=== PATIENT | male | born 1955 | race Caucasian/White ===

== ENCOUNTER 2016-08-08 13:26 | Inpatient (IN) | payer MEDICARE, OTHER ==
[~2016-08-08] VITALS: Ht 160 cm; Wt 57.7 kg
[~2016-08-08 13:26] MED LIST: AMLO10 PO; CLON.5 PO; LAMO100 PO; OMPR20CCR PO; PRIS100T PO; ZYPR20TA PO
[2016-08-08 13:34] VITALS: BP_SYST 101; BP_SYST 98; BP_DIAS 55; BP_DIAS 61; PULSE 66; RESP 20; TEMP 98.3; O2SAT 96
--- NOTE | 2016-08-08 13:37 | PD ---
HPI Chief Complaint: Back Pain Time Seen by Provider: 13:36 Travel History International Travel<30 days: No Contact w/Intl Traveler<30days: No Traveled to known affect area: No PFSH Past Medical History Arthritis: Yes Asthma: No Autoimmune Disease: No Bipolar Disorder: Yes Anxiety: Yes Depression: Yes Heart Rhythm Problems: No Cancer: Yes (PROSTATE) Cardiac Catheterization: Yes Cardiovascular Problems: Yes High Cholesterol: No Chemotherapy: No Chest Pain: No Congestive Heart Failure: No COPD: Yes Cerebrovascular Accident: No Diabetes: No Diminished Hearing: No Diverticulitis: Yes Endocrine: No Gastrointestinal Disorders: Yes GERD: Yes Genitourinary: Yes Hiatal Hernia: No Hypertension: Yes Immune Disorder: No Kidney Stones: No Musculoskeletal: Yes (arthritis) Neurologic: No Psychiatric: Yes Reproductive: No Respiratory: Yes (COPD) Migraines: No Radiation Therapy: No Renal Failure: Yes Seizures: No Sickle Cell Disease: No Sleep Apnea: Yes Thyroid Disease: No Ulcer: Yes Past Surgical History AICD: No Arteriovenous Shunt: No Cardiac Surgery: No Cholecystectomy: Yes Ear Surgery: No Endocrine Surgery: No Eye Surgery: No Genitourinary Surgery: Yes (prostate removal 2009) Gynecologic Surgery: No Insulin Pump: No Joint Replacement: No Oral Surgery: Yes (tooth extractions) Pacemaker: No Prostatectomy: Yes Thoracic Surgery: No Other Surgery: Yes Social History Alcohol Use: Yes Tobacco Use: Yes (/2 PPD) Substance Use: Yes (cocaine-last week) Allergies-Medications (Allergen,Severity, Reaction): Coded Allergies: No Known Allergies (Verified , 08/08/16) Reported Meds & Prescriptions Reported Meds & Active Scripts Active Reported Lexapro (Escitalopram Oxalate) 5 Mg Tab 5 Mg PO DAILY Klonopin (Clonazepam) 0.5 Mg Tab 0.5 Mg PO HS Lamictal (Lamotrigine) 100 Mg Tab 100 Mg PO DAILY Prilosec (Omeprazole) 20 Mg Cap 20 Mg PO DAILY Norvasc (Amlodipine Besylate) 10 Mg Tab 10 Mg PO DAILY Data Data Last Documented VS Vital Signs Date Time Temp Pulse Resp B/P Pulse Ox O2 Delivery O2 Flow Rate FiO2 08/08/16 13:34 98.3 66 20 101/61 96 98/55 Orders Electrocardiogram (08/08/16 ) Complete Blood Count With Diff (08/08/16 13:47) Comprehensive Metabolic Panel (08/08/16 13:47) Lipase (08/08/16 13:47) Lactic Acid (08/08/16 13:47) Prothrombin Time / Inr (Pt) (08/08/16 13:47) Urinalysis - C+S If Indicated (08/08/16 13:47) Ct Abd/Pel W Iv Contrast(Rout) (08/08/16 13:47) Iv Access Insert/Monitor (08/08/16 13:47) Ecg Monitoring (08/08/16 13:47) Oximetry (08/08/16 13:47) Sodium Chlor 0.9% 1000 Ml Inj (Ns 1000 M (08/08/16 13:47) Sodium Chloride 0.9% Flush (Ns Flush) (08/08/16 14:00) Morphine Inj (Morphine Inj) (08/08/16 15:00) Labs Laboratory Tests Test 08/08/16 13:55 White Blood Count 4.4 TH/MM3 Red Blood Count 4.26 MIL/MM3 Hemoglobin 13.8 GM/DL Hematocrit 41.2 % Mean Corpuscular Volume 96.7 FL Mean Corpuscular Hemoglobin 32.5 PG Mean Corpuscular Hemoglobin 33.6 % Concent Red Cell Distribution Width 16.3 % Platelet Count 234 TH/MM3 Mean Platelet Volume 8.0 FL Neutrophils (%) (Auto) 53.7 % Lymphocytes (%) (Auto) 38.4 % Monocytes (%) (Auto) 5.6 % Eosinophils (%) (Auto) 1.7 % Basophils (%) (Auto) 0.6 % Neutrophils # (Auto) 2.4 TH/MM3 Lymphocytes # (Auto) 1.7 TH/MM3 Monocytes # (Auto) 0.2 TH/MM3 Eosinophils # (Auto) 0.1 TH/MM3 Basophils # (Auto) 0.0 TH/MM3 CBC Comment DIFF FINAL Differential Comment Prothrombin Time 9.9 SEC Prothromb Time International 0.9 RATIO Ratio Sodium Level 138 MEQ/L Potassium Level 4.0 MEQ/L Chloride Level 99 MEQ/L Carbon Dioxide Level 28.7 MEQ/L Anion Gap 10 MEQ/L Blood Urea Nitrogen 7 MG/DL Creatinine 1.10 MG/DL Estimat Glomerular Filtration 68 ML/MIN Rate Random Glucose 102 MG/DL Lactic Acid Level 3.5 mmol/L Calcium Level 8.8 MG/DL Total Bilirubin 0.3 MG/DL Aspartate Amino Transf 72 U/L (AST/SGOT) Alanine Aminotransferase 53 U/L (ALT/SGPT) Alkaline Phosphatase 151 U/L Total Protein 7.2 GM/DL Albumin 3.4 GM/DL Lipase 225 U/L Jose Antonio Greenfield Aug 08, 2016 13:37
[2016-08-08] MEDS ORDERED: SODIUM CHLOR 0.9% 1000 ML INJ 1,000 ML IV SCH (13:47)
[2016-08-08] MEDS ORDERED: SODIUM CHLORIDE 0.9% FLUSH 10 ML FLUSH IV FLUSH PRN ×2 (14:00→16:00)
[2016-08-08] MEDS ORDERED: CLON.5 PO (14:09)
[2016-08-08] MEDS ORDERED: AMLO10 PO (14:09)
[2016-08-08] MEDS ORDERED: LEXA5TAB PO (14:09)
[2016-08-08] MEDS ORDERED: LAMO100 PO (14:09)
[2016-08-08] MEDS ORDERED: PRIL20CA9 PO (14:09)
[2016-08-08 14:12] LABS: AUTOMATED NEUTROPHIL # 2.4 TH/MM3 (1.8-7.7); BASOPHIL % 0.6 % (0.0-2.0); EOSINOPHIL # 0.1 TH/MM3 (0-0.4); EOSINOPHIL % 1.7 % (0.0-4.0); HEMATOCRIT 41.2 % (39.0-51.0); HEMO FLAGS DIFF FINAL; LYMPH % 38.4 % (9.0-44.0); LYMPHOCYTE # 1.7 TH/MM3 (1.0-4.8); MEAN CELL VOLUME 96.7 FL (80.0-100.0); MEAN CORPUSCULAR HEMOGLOBIN 32.5 PG (27.0-34.0); MEAN CORPUSCULAR HGB CONC 33.6 % (32.0-36.0); MONO % 5.6 % (0.0-8.0); NEUT % 53.7 % (16.0-70.0); PLATELET COUNT 234 TH/MM3 (150-450); RED BLOOD COUNT 4.26 MIL/MM3 (4.50-5.90); RED CELL DISTRIBUTION WIDTH 16.3 % (11.6-17.2); WHITE BLOOD COUNT 4.4 TH/MM3 (4.0-11.0)
[2016-08-08 14:18] LABS: INTERNATIONAL NORMALIZED RATIO 0.9 RATIO; PROTHROMBIN TIME - PATIENT 9.9 SEC (9.8-11.6)
[2016-08-08 14:24] LABS: ANION GAP 10 MEQ/L (5-15); AST (GOT) 72 U/L (15-37); BICARBONATE 28.7 MEQ/L (21.0-32.0); BLOOD UREA NITROGEN 7 MG/DL (7-18); CHLORIDE 99 MEQ/L (98-107); GLOMERULAR FILTRATION RATE 68 ML/MIN (>89); SODIUM (NA) 138 MEQ/L (136-145)
[2016-08-08 14:27] LABS: ALKALINE PHOSPHATASE 151 U/L (45-117); ALT (GPT) 53 U/L (12-78); TOTAL BILIRUBIN ADULT 0.3 MG/DL (0.2-1.0)
[2016-08-08 14:50] VITALS: BP 120/65; PULSE 73; RESP 20; O2SAT 100
--- NOTE | 2016-08-08 14:59 | PD ---
HPI Chief Complaint: Back/ Neck Pain or Injury Time Seen by Provider: 13:36 Travel History International Travel<30 days: No Contact w/Intl Traveler<30days: No Traveled to known affect area: No History of Present Illness HPI 60-year-old male came to the emergency room with history of lower back pain that was sudden onset and severe. When EMS arrived his blood pressure was in the 80s systolic. Here his blood pressure has been in the 90s to 100s. Patient is awake and answering questions appropriately. Patient says he has history of low back pain but has never had it this severe in the past. No history of trauma. He says the pain is radiating down his lower legs. No history of fever or chills. Movement makes the pain worse. FOR[facility]LY [facility] Past Medical History Narrative Medical List of his past medical, surgical, social and family history was reviewed from the nursing note Arthritis: Yes Asthma: No Autoimmune Disease: No Bipolar Disorder: Yes Anxiety: Yes Depression: Yes Heart Rhythm Problems: No Cancer: Yes (PROSTATE) Cardiac Catheterization: Yes Cardiovascular Problems: Yes High Cholesterol: No Chemotherapy: No Chest Pain: No Congestive Heart Failure: No COPD: Yes Cerebrovascular Accident: No Diabetes: No Diminished Hearing: No Diverticulitis: Yes Endocrine: No Gastrointestinal Disorders: Yes GERD: Yes Genitourinary: Yes Hiatal Hernia: No Hypertension: Yes Immune Disorder: No Kidney Stones: No Musculoskeletal: Yes (arthritis) Neurologic: No Psychiatric: Yes Reproductive: No Respiratory: Yes (COPD) Migraines: No Radiation Therapy: No Renal Failure: Yes Seizures: No Sickle Cell Disease: No Sleep Apnea: Yes Thyroid Disease: No Ulcer: Yes Tetanus Vaccination: < 5 Years Influenza Vaccination: Yes Past Surgical History AICD: No Arteriovenous Shunt: No Cardiac Surgery: No Cholecystectomy: Yes Ear Surgery: No Endocrine Surgery: No Eye Surgery: No Genitourinary Surgery: Yes (prostate removal 2009) Gynecologic Surgery: No Insulin Pump: No Joint Replacement: No Oral Surgery: Yes (tooth extractions) Pacemaker: No Prostatectomy: Yes Thoracic Surgery: No Other Surgery: Yes Social History Alcohol Use: Yes (FEW TIMES WEEKLY ) Tobacco Use: Yes (1/2 PPD) Substance Use: Yes (cocaine) Allergies-Medications (Allergen,Severity, Reaction): Coded Allergies: No Known Allergies (Verified , 08/08/16) Comments No known drug allergies. Reported Meds & Prescriptions Reported Meds & Active Scripts Active Reported Lexapro (Escitalopram Oxalate) 5 Mg Tab 5 Mg PO DAILY Klonopin (Clonazepam) 0.5 Mg Tab 0.5 Mg PO HS Lamictal (Lamotrigine) 100 Mg Tab 100 Mg PO DAILY Prilosec (Omeprazole) 20 Mg Cap 20 Mg PO DAILY Norvasc (Amlodipine Besylate) 10 Mg Tab 10 Mg PO DAILY Narrative Medication List of his home medications reviewed from the nursing note. Review of Systems Except as stated in HPI: all other systems reviewed are Neg Physical Exam Narrative GENERAL: Awake, alert, anxious, moderate disc SKIN: Focused skin assessment warm/dry. HEAD: Atraumatic. Normocephalic. EYES: Pupils equal and round. No scleral icterus. No injection or drainage. ENT: No nasal bleeding or discharge. Dry mucous membrane. NECK: Trachea midline. No JVD. CARDIOVASCULAR: Regular rate and rhythm. No murmur appreciated. RESPIRATORY: No accessory muscle use. Clear to auscultation. Breath sounds equal bilaterally. GASTROINTESTINAL: Abdomen soft, non-tender, nondistended. Hepatic and splenic margins not palpable. MUSCULOSKELETAL: No obvious deformities. No clubbing. No cyanosis. No edema. NEUROLOGICAL: Awake and alert. No obvious cranial nerve deficits. Motor grossly within normal limits. Normal speech. PSYCHIATRIC: Appropriate mood and affect; insight and judgment normal. Data Data Last Documented VS Vital Signs Date Time Temp Pulse Resp B/P Pulse Ox O2 Delivery O2 Flow Rate FiO2 08/08/16 15:05 20 08/08/16 14:50 73 120/65 100 Room Air 08/08/16 13:34 98.3 Orders Electrocardiogram (08/08/16 ) Complete Blood Count With Diff (08/08/16 13:47) Comprehensive Metabolic Panel (08/08/16 13:47) Lipase (08/08/16 13:47) Lactic Acid (08/08/16 13:47) Prothrombin Time / Inr (Pt) (08/08/16 13:47) Urinalysis - C+S If Indicated (08/08/16 13:47) Ct Abd/Pel W Iv Contrast(Rout) (08/08/16 13:47) Iv Access Insert/Monitor (08/08/16 13:47) Ecg Monitoring (08/08/16 13:47) Oximetry (08/08/16 13:47) Sodium Chlor 0.9% 1000 Ml Inj (Ns 1000 M (08/08/16 13:47) Sodium Chloride 0.9% Flush (Ns Flush) (08/08/16 14:00) Morphine Inj (Morphine Inj) (08/08/16 15:00) Iohexol 350 Inj (Omnipaque 350 Inj) (08/08/16 15:19) Sodium Chlor 0.9% 1000 Ml Inj (Ns 1000 M (08/08/16 15:45) Piperacil-Tazo 4.5 Gm Premix (Zosyn 4.5 (08/08/16 15:45) Morphine Inj (Morphine Inj) (08/08/16 15:45) Lactic Acid (08/08/16 15:45) Admit Order (Ed Use Only) (08/08/16 15:50) ^ Straight Catheter (08/08/16 15:51) Mri L Spine W/O Contrast (08/08/16 ) Mri T Spine W/O Contrast (08/08/16 ) Labs Laboratory Tests Test 08/08/16 13:55 White Blood Count 4.4 TH/MM3 Red Blood Count 4.26 MIL/MM3 Hemoglobin 13.8 GM/DL Hematocrit 41.2 % Mean Corpuscular Volume 96.7 FL Mean Corpuscular Hemoglobin 32.5 PG Mean Corpuscular Hemoglobin 33.6 % Concent Red Cell Distribution Width 16.3 % Platelet Count 234 TH/MM3 Mean Platelet Volume 8.0 FL Neutrophils (%) (Auto) 53.7 % Lymphocytes (%) (Auto) 38.4 % Monocytes (%) (Auto) 5.6 % Eosinophils (%) (Auto) 1.7 % Basophils (%) (Auto) 0.6 % Neutrophils # (Auto) 2.4 TH/MM3 Lymphocytes # (Auto) 1.7 TH/MM3 Monocytes # (Auto) 0.2 TH/MM3 Eosinophils # (Auto) 0.1 TH/MM3 Basophils # (Auto) 0.0 TH/MM3 CBC Comment DIFF FINAL Differential Comment Prothrombin Time 9.9 SEC Prothromb Time International 0.9 RATIO Ratio Sodium Level 138 MEQ/L Potassium Level 4.0 MEQ/L Chloride Level 99 MEQ/L Carbon Dioxide Level 28.7 MEQ/L Anion Gap 10 MEQ/L Blood Urea Nitrogen 7 MG/DL Creatinine 1.10 MG/DL Estimat Glomerular Filtration 68 ML/MIN Rate Random Glucose 102 MG/DL Lactic Acid Level 3.5 mmol/L Calcium Level 8.8 MG/DL Total Bilirubin 0.3 MG/DL Aspartate Amino Transf 72 U/L (AST/SGOT) Alanine Aminotransferase 53 U/L (ALT/SGPT) Alkaline Phosphatase 151 U/L Total Protein 7.2 GM/DL Albumin 3.4 GM/DL Lipase 225 U/L MDM Medical Decision Making Medical Screen Exam Complete: Yes Emergency Medical Condition: Yes Medical Record Reviewed: Yes Differential Diagnosis AAA, lumbar radiculopathy Narrative Course 3:08 PM patient was given IV fluid bolus. Blood pressure currently is 120 systolic. Blood test results of back and within normal limit. I have ordered a CT of his abdomen and pelvis. Based on my bedside ultrasound are pearly was visualized. Patient has been medicated for pain. Awaiting for the CAT scan to be done and resulted. 3:44 PM blood test results of back and CAT scan. Except for lactic acid all other test results are within acceptable limit. Lactic acid is elevated. Based on the hypertension initially I will go ahead and treat him with broad- spectrum antibiotics for sepsis coverage. I have also ordered an MRI of his thoracic and lumbar spine since patient is still complaining of back pain. I have given him a second dose of pain medication. I will admit this patient. I' m waiting for the hospitalist call back. Critical Care Narrative Aggregate critical care time was 45 minutes. Time to perform other separately billable procedures was not included in the critical care time. My time did not include minutes spent treating any other patients simultaneously or on activities that did not directly contribute to the patient's treatment. The services I provided to this patient were to treat and/or prevent clinically significant deterioration that could result in: Hypotension, sepsis protocol I provided critical care services requiring my management, as noted below: Chart data review, documentation time, medication orders and management, vital sign assessments/reviewing monitor data, ordering and reviewing lab tests, ordering and interpreting/reviewing x-rays and diagnostic studies, care of the patient and discussion of the patient with the admitting physicians. Procedures EKG Prior to Arrival: No Diagnosis Primary Impression: Sepsis Qualified Code: A41.9 - Sepsis, due to unspecified organism Additional Impression: Back pain Qualified Code: M54.5 - Acute midline low back pain without sciatica Admitting Information Admitting Physician Requests: Admit Scripts Hydrocodone-Acetaminophen 5-325 mg Tab1 Tab PO Q4H PRN (pain 1-5) #30 TAB Prov:Sam More MD 08/12/16 Maya Dougherty MD Aug 08, 2016 14:59
[2016-08-08] MEDS ORDERED: MORPHINE SULFATE 4 MG/ML INJ IV PUSH ONE ×2 (15:00→15:45)
[2016-08-08] MEDS ORDERED: IOHEXOL 350 MG/ML 10 ML VIAL (for RAD DIAG) IV ONE (15:19)
--- NOTE | 2016-08-08 15:36 | RADRPT ---
EXAM DATE/TIME: 08/08/2016 15:10 [facility] COMPARISON: No previous studies available for comparison. INDICATIONS : Diffuse lower back and abdominal pain for two days. IV CONTRAST: 100 cc Omnipaque 350 (iohexol) IV ORAL CONTRAST: No oral contrast ingested. RADIATION DOSE: 6.06 CTDIvol (mGy) MEDICAL HISTORY : Hypertension. Diverticulitis. Renal failure, chronic.Ulcer, Cardiac. SURGICAL HISTORY : Cholecystectomy. Prostate Cancer Surgery. ENCOUNTER: Initial ACUITY: 2 days PAIN SCALE: 7/10 LOCATION: Bilateral lower quadrant TECHNIQUE: Volumetric scanning of the abdomen and pelvis was performed. Using automated exposure control and ad justment of the mA and/or kV according to patient size, radiation dose was kept as low as reasonably achievable to obtain optimal diagnostic quality images. FINDINGS: CT Abdomen: The liver is fatty without focal lesions or technique. The right kidney measures 10.3 cm the left side measures 6.6 cm in craniocaudal dimension. There are small cysts in both kidneys. The s pleen, pancreas, adrenals are unremarkable. There is no evidence for any appreciable pathological rosie nopathy, free fluid, or bowel obstruction. There is evidence for prior cholecystectomy. Coronary art francisco calcifications are seen typically seen with CAD and need to be evaluated clinically. Chronic vasc ular calcifications are present involving the aorta, iliac arteries without any significant stenosis or aneurysmal dilatations for technique. Common bile duct measures 9 mm from post cholecystectomy res ervoir changes. CT pelvis: There is no evidence for mass, abscess formation, or any significant adenopathy within the pelvis. There are scattered diverticuli mainly in the sigmoid colon without definite signs of divert iculitis. There is moderate amount of stool throughout the colon. CONCLUSION: The left kidney is smaller as compared to the right side and the liver is fatty. Fanny Jang MD on August 08, 2016 at 15:24 Board Certified Radiologist. This report was verified electronically.
[2016-08-08] MEDS ORDERED: VANCOMYCIN INJ 1,000 MG in SODIUM CHLOR 0.9% 250 ML INJ 250 ML IV ONE (15:45)
[2016-08-08] MEDS ORDERED: PIPERACIL-TAZO 4.5 GM PREMIX 100 ML IV ONE (15:45)
[2016-08-08] MEDS ORDERED: SODIUM CHLOR 0.9% 1000 ML INJ 1,000 ML IV ONE (15:45)
[2016-08-08] MEDS: SODIUM CHLOR 0.9% 1000 ML INJ 1,000 ML IV SCH (15:50)
--- NOTE | 2016-08-08 15:54 | HHI.HP ---
HPI [facility] Physician Lei Cochran, Admission Diagnosis sepsis, lower back pain Diagnoses: Travel History International Travel<30 Days: No Contact w/Intl Traveler <30 Da: No Traveled to Known Affected Are: No History of Present Illness This is a 60-year-old male who had a sudden onset of severe low back pain that started a little less than 24 hours prior to his presentation to the emergency department at [facility] today. He came in by ambulance. At the ambulance his systolic was 80. He was given IV fluids and his systolic blood pressure came up to normal range. His lactic acid was 3.5. CT scan of the abdomen was done and was unremarkable. MRI of the thoracic and lumbar spine is pending. He was seen by the undersigned in room E 53. Is alert and oriented. Is complaining that the morphine did not do anything for him. He requested IV Demerol. He mentioned that with his pain he is having weakness in his lower extremities however he is actually able to move his lower extremities above the level of the bed during this interview. No fever chills or diaphoresis. Review of Systems Other Poor appetite, chronic pain for which he uses Lortab. Location of the pain is not clear. Malnourished. 10 systems reviewed and otherwise negative Past Family Social History Past Medical History Hypertension Diverticulitis Bipolar Hepatitis C Hypertension Chronic pain syndrome COPD Obstructive sleep apnea Tobacco abuse Cocaine abuse Chronic kidney disease Hypertension Inflammatory bowel disease Prostate cancer Left patella fracture Past Surgical History Cardiac catheterization Cholecystectomy Left patella open reduction internal fixation Prostate cancer surgery Reported Medications Reported Meds & Active Scripts Active Reported Lexapro (Escitalopram Oxalate) 5 Mg Tab 5 Mg PO DAILY Klonopin (Clonazepam) 0.5 Mg Tab 0.5 Mg PO HS Lamictal (Lamotrigine) 100 Mg Tab 100 Mg PO DAILY Prilosec (Omeprazole) 20 Mg Cap 20 Mg PO DAILY Norvasc (Amlodipine Besylate) 10 Mg Tab 10 Mg PO DAILY Allergies: Coded Allergies: No Known Allergies (Verified , 08/08/16) Family History Reviewed but not contributory Social History Half pack a day smoking, uses cocaine, no illicit drug use per patient Physical Exam Vital Signs Vital Signs Date Time Temp Pulse Resp B/P Pulse Ox O2 Delivery O2 Flow Rate FiO2 08/08/16 14:50 73 20 120/65 100 Room Air 08/08/16 13:34 98.3 66 20 101/61 96 98/55 Physical Exam GENERAL: This is a poorly nourished, well-developed patient, looking anxious but otherwise in no apparent distress. SKIN: No rashes, ecchymoses or lesions. Cool and dry. HEAD: Atraumatic. Normocephalic. No temporal or scalp tenderness. EYES: Pupils equal round and reactive. Extraocular motions intact. No scleral icterus. No injection or drainage. ENT: Nose without bleeding, purulent drainage or septal hematoma. Throat without erythema, tonsillar hypertrophy or exudate. Uvula midline. Airway patent. NECK: Trachea midline. No JVD or lymphadenopathy. Supple, nontender, no meningeal signs. CARDIOVASCULAR: Regular rate and rhythm without murmurs, gallops, or rubs. RESPIRATORY: Clear to auscultation. Breath sounds equal bilaterally. No wheezes , rales, or rhonchi. GASTROINTESTINAL: Abdomen soft, non-tender, nondistended. No hepato-splenomegaly , or palpable masses. No guarding. MUSCULOSKELETAL: Extremities without clubbing, cyanosis, or edema. No joint tenderness, effusion, or edema noted. No calf tenderness. Negative Homans sign bilaterally. NEUROLOGICAL: Awake and alert. Cranial nerves II through XII intact. sensory exam grossly within normal limits. Five out of 4 muscle strength in all muscle groups. Straight leg raising in both lower extremities is limited to 30 bilaterally secondary to pain. Normal speech. Laboratory Laboratory Tests Test 08/08/16 13:55 White Blood Count 4.4 Red Blood Count 4.26 Hemoglobin 13.8 Hematocrit 41.2 Mean Corpuscular Volume 96.7 Mean Corpuscular Hemoglobin 32.5 Mean Corpuscular Hemoglobin 33.6 Concent Red Cell Distribution Width 16.3 Platelet Count 234 Mean Platelet Volume 8.0 Neutrophils (%) (Auto) 53.7 Lymphocytes (%) (Auto) 38.4 Monocytes (%) (Auto) 5.6 Eosinophils (%) (Auto) 1.7 Basophils (%) (Auto) 0.6 Neutrophils # (Auto) 2.4 Lymphocytes # (Auto) 1.7 Monocytes # (Auto) 0.2 Eosinophils # (Auto) 0.1 Basophils # (Auto) 0.0 CBC Comment DIFF FINAL Differential Comment Prothrombin Time 9.9 Prothromb Time International 0.9 Ratio Sodium Level 138 Potassium Level 4.0 Chloride Level 99 Carbon Dioxide Level 28.7 Anion Gap 10 Blood Urea Nitrogen 7 Creatinine 1.10 Estimat Glomerular Filtration 68 Rate Random Glucose 102 Lactic Acid Level 3.5 Calcium Level 8.8 Total Bilirubin 0.3 Aspartate Amino Transf 72 (AST/SGOT) Alanine Aminotransferase 53 (ALT/SGPT) Alkaline Phosphatase 151 Total Protein 7.2 Albumin 3.4 Lipase 225 Result Diagram: 08/08/16 1355 08/08/16 1355 Imaging Last Impressions Abdomen/Pelvis CT 08/08/16 1347 Signed Impressions: Service Date/Time: July 15:10 - CONCLUSION: The left kidney is smaller as compared to the right side and the liver is fatty. Fanny Jang MD Septic Shock Reassessment Heart: Regular rate and rhythm Lungs: Clear Skin: Warm Peripheral Pulses: Bounding Right Radial Bounding Left Radial Bounding Right Dorsalis Pedis Bounding Left Dorsalis Pedis Capillary Refill: Sluggish Assessment and Plan Assessment and Plan Assessment Sepsis Hypotension, improved Severe low back pain, etiology unclear Rule out discitis Malnourished Management Admit to telemetry IV antibiotics Continue Zosyn Add vancomycin MRI lumbar and thoracic spine Consult infectious disease specialist Pain control DVT prophylaxis Sedimentation rate IV fluids Blood culture for any temperature above 100 Discussed with patient Discussed with nurse Discussed with emergency physician 40 minutes Discussed With: Nurse Enio Ferrera MD Aug 08, 2016 15:54
[2016-08-08 16:00] VITALS: BP 120/72; PULSE 82; RESP 18; O2SAT 98
[2016-08-08] MEDS ORDERED: Vancomycin Consult Pharmacy 1 EA OTHER SCH (16:00)
[2016-08-08] MEDS ORDERED: MORPHINE SULFATE 4 MG/ML INJ IV PUSH PRN (16:00)
[2016-08-08] MEDS ORDERED: NALOXONE HCL 0.4 MG/ML AMP IV PRN (16:00)
[2016-08-08 16:48] LABS: BLOOD, URINE NEG (NEG); COMMENT (UR) CULT NOT INDICATED; CULTURE IF INDICATED CULT NOT INDICATED; GLUCOSE,URINE NEG (NEG); HYALINE CAST, URINE 1 /lpf (RARE); KETONE, URINE NEG (NEG); NITRITE,URINE NEG (NEG); PH, URINE 6.5 (5.0-8.5); URINE COLOR YELLOW (YELLW/STRAW)
[2016-08-08] MEDS ORDERED: VANCOMYCIN 1,000 MG/NS 250 ML IV SCH ×2 (17:00)
[2016-08-08 17:07] VITALS: BP 120/72; PULSE 80; RESP 16; O2SAT 95
[2016-08-08] MEDS: HEPARIN SODIUM - SQ 10,000 UNITS/ML VIAL SQ SCH (17:16)
[2016-08-08] MEDS: HYDROmorphone HCL PF 1 MG/ML VIAL IV PUSH PRN ×2 (17:16→21:26)
--- NOTE | 2016-08-08 19:05 | RADRPT ---
EXAM DATE/TIME: 08/08/2016 18:22 [facility] COMPARISON: MRI LUMBAR SPINE W/O CONTRAST, August 08, 2016, 18:22. INDICATIONS : Pain. Back pain for two weeks with pain in bilateral legs. MEDICAL HISTORY : Hypertension. Carcinoma, prostate. SURGICAL HISTORY : Cholecystectomy. Prostatectomy. Left knee and neck surgery. ENCOUNTER: Initial ACUITY: 2 weeks PAIN SCORE: 8/10 LOCATION: Back. TECHNIQUE: Multiplanar multisequence MRI of the thoracic spine was performed. FINDINGS: The marrow signal appears intact. No significant compression deformities are seen. No significant c ord compression is identified. The spinal cord appears intact. Slight degenerative changes are seen within the disc space and facets with scattered Schmorl nodes formation. T1-T2: No appreciable compromise to the thecal sac, spinal cord, or the exiting nerve roots are seen. The neural foramina are grossly patent bilaterally. T2-T3: No appreciable compromise to the thecal sac, spinal cord, or the exiting nerve roots are seen. The neural foramina are grossly patent bilaterally. T3-T4: No appreciable compromise to the thecal sac, spinal cord, or the exiting nerve roots are seen. The neural foramina are grossly patent bilaterally. T4-T5: No appreciable compromise to the thecal sac, spinal cord, or the exiting nerve roots are seen. The neural foramina are grossly patent bilaterally. T5-T6: No appreciable compromise to the thecal sac, spinal cord, or the exiting nerve roots are seen. The neural foramina are grossly patent bilaterally. T6-T7: No appreciable compromise to the thecal sac, spinal cord, or the exiting nerve roots are seen. The neural foramina are grossly patent bilaterally. T7-T8: No appreciable compromise to the thecal sac, spinal cord, or the exiting nerve roots are seen. The neural foramina are grossly patent bilaterally. T8-T9: No appreciable compromise to the thecal sac, spinal cord, or the exiting nerve roots are seen. The neural foramina are grossly patent bilaterally. T9-T10: No appreciable compromise to the thecal sac, spinal cord, or the exiting nerve roots are see n. The neural foramina are grossly patent bilaterally. T10-T11: No appreciable compromise to the thecal sac, spinal cord, or the exiting nerve roots are se en. The neural foramina are grossly patent bilaterally. T11-T12: No appreciable compromise to the thecal sac, spinal cord, or the exiting nerve roots are se en. The neural foramina are grossly patent bilaterally. T12-L1: No appreciable compromise to the thecal sac, spinal cord, or the exiting nerve roots are s een. The neural foramina are grossly patent bilaterally. CONCLUSION: Degenerative changes without any significant compromise to the thecal sac or the exit ing nerve roots. Fanny Jang MD on August 08, 2016 at 19:01 Board Certified Radiologist. This report was verified electronically.
--- NOTE | 2016-08-08 19:10 | RADRPT ---
EXAM DATE/TIME: 08/08/2016 18:22 [facility] COMPARISON: No previous studies available for comparison. INDICATIONS : Pain. Lower back pain for two weeks with bilateral leg pain. MEDICAL HISTORY : Hypertension. Carcinoma, prostate. SURGICAL HISTORY : Cholecystectomy. Prostatectomy. Left knee and neck surgery. ENCOUNTER: Initial ACUITY: 1 day PAIN SCORE: 8/10 LOCATION: Back. TECHNIQUE: Multiplanar multisequence MRI of the lumbar spine was performed without contrast. FINDINGS: The marrow signal appears intact. No significant compression deformities, spondylolisis, or spondylo lesthesis is seen. There are simple cysts in the left kidney. Moderate degree of facet hypertrophy is present at L4-5 and L5-S1. L1-L2: No appreciable compromise to the thecal sac, or the exiting nerve roots is seen. The neural foramina and lateral recesses are patent bilaterally. L2-L3: No appreciable compromise to the thecal sac, or the exiting nerve roots is seen. The neural foramina and lateral recesses are patent bilaterally. L3-L4: No appreciable compromise to the thecal sac, or the exiting nerve roots is seen. The neural foramina and lateral recesses are patent bilaterally. L4-L5: No appreciable compromise to the thecal sac, or the exiting nerve roots is seen. The neural foramina and lateral recesses are patent bilaterally. L5-S1: No appreciable compromise to the thecal sac, or the exiting nerve roots is seen. The neural foramina and lateral recesses are patent bilaterally. CONCLUSION: Degenerative changes with facet arthrosis mainly at L4-5 and L5-S1 without any signif icant compromise to the thecal sac or the exiting nerve roots. Fanny Jang MD on August 08, 2016 at 19:07 Board Certified Radiologist. This report was verified electronically.
[2016-08-08 19:15] VITALS: BP 146/76; PULSE 88; RESP 17; TEMP 97; O2SAT 92
[2016-08-08] MEDS: ACETAMINOPHEN/HYDROcodone 325 MG/10 MG TAB PO PRN ×2 (19:44→23:49)
[2016-08-08] MEDS: VANCOMYCIN 1,000 MG/NS 250 ML IV SCH ×2 (19:44)
[2016-08-08] MEDS: ONDANSETRON HCL 4 MG/2 ML VIAL IVP PRN (19:58)
[2016-08-08] MEDS: clonazePAM 0.5 MG TAB PO SCH (21:25)
[2016-08-08] MEDS: ESCITALOPRAM OXALATE 10 MG TAB PO SCH (21:25)
[2016-08-08] MEDS: lamoTRIgine 100 MG TAB PO SCH (21:26)
[2016-08-08] MEDS: SODIUM CHLORIDE 0.9% FLUSH 10 ML FLUSH IV FLUSH SCH (21:31)
[2016-08-08] MEDS: PIPERACIL-TAZO 3.375 GM PREMIX 50 ML IV SCH (22:25)
[2016-08-09] VITALS (8 sets, daily range): BP systolic 142–179; BP diastolic 83–91; PULSE 75–92; RESP 16–17; TEMP 95.9–97.9; O2SAT 94–96
[2016-08-09] MEDS: HYDROmorphone HCL PF 1 MG/ML VIAL IV PUSH PRN ×4 (01:02→13:16)
[2016-08-09] MEDS: SODIUM CHLOR 0.9% 1000 ML INJ 1,000 ML IV SCH ×2 (01:31→07:58)
[2016-08-09] MEDS: PIPERACIL-TAZO 3.375 GM PREMIX 50 ML IV SCH ×4 (03:36→21:57)
[2016-08-09] MEDS: ACETAMINOPHEN/HYDROcodone 325 MG/10 MG TAB PO PRN ×5 (03:36→19:55)
[2016-08-09] MEDS: HEPARIN SODIUM - SQ 10,000 UNITS/ML VIAL SQ SCH ×2 (03:36→16:00)
[2016-08-09] MEDS: PANTOPRAZOLE SOD 20 MG DELAYED RELEASE TAB PO SCH (07:51)
[2016-08-09] MEDS: SODIUM CHLORIDE 0.9% FLUSH 10 ML FLUSH IV FLUSH SCH ×2 (07:54→19:57)
[2016-08-09 08:11] LABS: AUTOMATED NEUTROPHIL # 3.7 TH/MM3 (1.8-7.7); BASOPHIL # 0.1 TH/MM3 (0-0.2); BASOPHIL % 1.1 % (0.0-2.0); EOSINOPHIL # 0.1 TH/MM3 (0-0.4); EOSINOPHIL % 2.4 % (0.0-4.0); HEMATOCRIT 35.5 % (39.0-51.0); HEMO FLAGS DIFF FINAL; LYMPH % 28.1 % (9.0-44.0); LYMPHOCYTE # 1.6 TH/MM3 (1.0-4.8); MEAN CORPUSCULAR HEMOGLOBIN 33.6 PG (27.0-34.0); MONO % 5.9 % (0.0-8.0); NEUT % 62.5 % (16.0-70.0); PLATELET COUNT 198 TH/MM3 (150-450); RED CELL DISTRIBUTION WIDTH 16.2 % (11.6-17.2); WHITE BLOOD COUNT 5.9 TH/MM3 (4.0-11.0)
[2016-08-09 08:24] LABS: BICARBONATE 30.6 MEQ/L (21.0-32.0); POTASSIUM 3.6 MEQ/L (3.5-5.1)
[2016-08-09] MEDS: ONDANSETRON HCL 4 MG/2 ML VIAL IVP PRN ×3 (12:01→22:04)
--- NOTE | 2016-08-09 12:11 | PD.ID.CON ---
History of Present Illness Service ID Consult Requested By Dr Zepeda Reason for Consult sepsis c back pain Primary Care Physician Lei Cochran, DO Diagnoses: History of Present Illness 60 yo male with h/o long terma back pain for years presentes with worsening back pain in the last few weeks He is a poor historian, history obtained thru the chart On presentation though afebrile abd with normal WBC, he as found to be hypotesnsive and had lactic acidosis of 3.5 Sepsis was suspected based on above findings, however pt's back imaging studies negative for infection ( L and T spine MRI) His CT A/P also negative, urinalysis negative On broad spectrum abx remains afebrile Review of Systems ROS Limitations: Poor Historian Except as stated in HPI: all other systems reviewed are Neg Past Family Social History Allergies: Coded Allergies: No Known Allergies (Verified , 08/08/16) Past Medical History Hypertension Diverticulitis Bipolar Hepatitis C Hypertension Chronic pain syndrome COPD Obstructive sleep apnea Tobacco abuse Cocaine abuse Chronic kidney disease Hypertension Inflammatory bowel disease Prostate cancer Left patella fracture Past Surgical History C spine surgery for DJD Cardiac catheterization Cholecystectomy Left patella open reduction internal fixation Prostate cancer surgery Active Ordered Medications Medications where reviewed in EMR Antibiotics Include: zosyn vanco Family History Reviewed but not contributory Social History Half pack a day smoking, uses cocaine per tox screen (last + in 04/2015), no illicit drug use per patient + ETOH use including admissions for Etoh intoxications Physical Exam Vital Signs Vital Signs Date Time Temp Pulse Resp B/P Pulse Ox O2 Delivery O2 Flow Rate FiO2 08/09/16 10:55 95.9 75 16 179/91 96 08/09/16 07:50 96.0 78 17 161/85 94 08/09/16 04:00 97.9 82 17 157/83 95 08/09/16 00:00 97.7 90 16 149/85 94 08/08/16 19:15 97.0 88 17 146/76 92 08/08/16 17:07 80 16 120/72 95 Room Air 08/08/16 16:07 20 08/08/16 16:00 82 18 120/72 98 Room Air 08/08/16 15:05 20 08/08/16 14:50 73 20 120/65 100 Room Air 08/08/16 13:34 98.3 66 20 101/61 96 98/55 Physical Exam CONSTITUTIONAL/GENERAL: This is a thin elderly appearing patient, in no apparent distress. TUBES/LINES/DRAINS: SKIN: No jaundice, rashes, or lesions. Skin temperature appropriate. Not diaphoretic. HEAD: Atraumatic. Normocephalic. EYES: Pupils equal and round and reactive. Extraocular motions intact. No scleral icterus. No injection or drainage. Fundi not examined. ENT: Hearing grossly normal. Nose without bleeding or purulent drainage. Throat without visible erythema, exudates, masses, or lesions. NECK: Trachea midline. Supple, nontender. No palpable thyroid enlargement or nodularity. CARDIOVASCULAR: Regular rate and rhythm without murmurs, gallops, or rubs. No JVD. Peripheral pulses symmetric. RESPIRATORY/CHEST: Symmetric, unlabored respirations. Clear to auscultation. Breath sounds equal bilaterally. No wheezes, rales, or rhonchi. GASTROINTESTINAL: Abdomen soft, non-tender, nondistended. No hepato-splenomegaly , or palpable masses. No guarding. Bowel sounds present. GENITOURINARY: Without palpable bladder distension. MUSCULOSKELETAL: Extremities without clubbing, cyanosis, or edema. No joint tenderness or effusion noted. No calf tenderness. No mottling or clubbing. BACK : mildly tender to palpation over lumbar area LYMPHATICS: No palpable cervical or supraclavicular adenopathy. NEUROLOGICAL: Awake and alert. Motor and sensory grossly within normal limits. Follows commands. Normal speech Moves all extremities. PSYCHIATRIC: No obvious anxiety/depression. no apparent hallucinations or other psychotic thought process. Laboratory Laboratory Tests Test 08/08/16 08/08/16 08/08/16 08/09/16 13:55 15:55 16:20 07:45 White Blood Count 4.4 5.9 Red Blood Count 4.26 3.70 Hemoglobin 13.8 12.4 Hematocrit 41.2 35.5 Mean Corpuscular Volume 96.7 96.0 Mean Corpuscular Hemoglobin 32.5 33.6 Mean Corpuscular Hemoglobin 33.6 35.0 Concent Red Cell Distribution Width 16.3 16.2 Platelet Count 234 198 Mean Platelet Volume 8.0 8.2 Neutrophils (%) (Auto) 53.7 62.5 Lymphocytes (%) (Auto) 38.4 28.1 Monocytes (%) (Auto) 5.6 5.9 Eosinophils (%) (Auto) 1.7 2.4 Basophils (%) (Auto) 0.6 1.1 Neutrophils # (Auto) 2.4 3.7 Lymphocytes # (Auto) 1.7 1.6 Monocytes # (Auto) 0.2 0.3 Eosinophils # (Auto) 0.1 0.1 Basophils # (Auto) 0.0 0.1 CBC Comment DIFF FINAL DIFF FINAL Differential Comment Prothrombin Time 9.9 Prothromb Time International 0.9 Ratio Sodium Level 138 136 Potassium Level 4.0 3.6 Chloride Level 99 101 Carbon Dioxide Level 28.7 30.6 Anion Gap 10 4 Blood Urea Nitrogen 7 6 Creatinine 1.10 0.93 Estimat Glomerular Filtration 68 83 Rate Random Glucose 102 94 Lactic Acid Level 3.5 2.5 Calcium Level 8.8 8.1 Total Bilirubin 0.3 Aspartate Amino Transf 72 (AST/SGOT) Alanine Aminotransferase 53 (ALT/SGPT) Alkaline Phosphatase 151 Total Protein 7.2 Albumin 3.4 Lipase 225 Urine Color YELLOW Urine Turbidity CLEAR Urine pH 6.5 Urine Specific [place] 1.019 Urine Protein NEG Urine Glucose (UA) NEG Urine Ketones NEG Urine Occult Blood NEG Urine Nitrite NEG Urine Bilirubin NEG Urine Urobilinogen LESS THAN 2.0 Urine Leukocyte Esterase NEG Urine WBC LESS THAN 1 Urine Hyaline Casts 1 Microscopic Urinalysis Comment CULT NOT INDICATED Result Diagram: 08/09/16 0745 08/09/16 0745 Imaging Last Impressions Abdomen/Pelvis CT 08/08/16 1347 Signed Impressions: Service Date/Time: July 15:10 - CONCLUSION: The left kidney is smaller as compared to the right side and the liver is fatty. Fanny Jang MD Thoracic Spine MRI 08/08/16 0000 Signed Impressions: Service Date/Time: July 18:22 - CONCLUSION: Degenerative changes without any significant compromise to the thecal sac or the exiting nerve roots. Fanny Jang MD Lumbar Spine MRI 08/08/16 0000 Signed Impressions: Service Date/Time: July 18:22 - CONCLUSION: Degenerative changes with facet arthrosis mainly at L4-5 and L5-S1 without any significant compromise to the thecal sac or the exiting nerve roots. Fanny Jang MD Assessment and Plan Assessment and Plan ? suspected sepsis Back pain -No e/o active spine infectio - chronic degenerative changes - no blood clx availbale from prior to abx dc abx chk BC if develops fever or other signs of sepsis no need for abx if blood clx remain negative Madiha Lyons MD Aug 09, 2016 12:11
[2016-08-09] MEDS ORDERED: cloNIDine HCL 0.1 MG TAB PO PRN (13:30)
--- NOTE | 2016-08-09 13:41 | HHI.PR ---
Subjective Subjective Remarks c/o back pain, Dilaudid 0.5 mg not working requesting increase in medication takes 4 Lortabs at home, sees pain management states back pain has been ongoing for 4 days associated with weakness pain to left lower back states pain radiates to back and front of thighs, he feels weakness, intact sensation pain is sharp no fever no cp no sob no cough c/o itching to arms, skin very dry, hx psoriasis requesting sleeping pill no bm x 3- 4 days. Review of Systems Constitutional Constitutional Remarks 12 point ROS completed, negative except as noted above Vitals/Results Intake & Output 08/08/16 08/08/16 08/09/16 15:00 23:00 07:00 Intake Total 480 ml 480 ml Output Total 400 ml 1000 ml Balance 80 ml -520 ml Intake Oral 480 ml 480 ml Output Urine Total 400 ml 1000 ml Vital Signs Vital Signs Date Time Temp Pulse Resp B/P Pulse Ox O2 Delivery O2 Flow Rate FiO2 08/09/16 10:55 95.9 75 16 179/91 96 08/09/16 07:50 96.0 78 17 161/85 94 08/09/16 04:00 97.9 82 17 157/83 95 08/09/16 00:00 97.7 90 16 149/85 94 08/08/16 19:15 97.0 88 17 146/76 92 08/08/16 17:07 80 16 120/72 95 Room Air 08/08/16 16:07 20 08/08/16 16:00 82 18 120/72 98 Room Air 08/08/16 15:05 20 08/08/16 14:50 73 20 120/65 100 Room Air 08/08/16 13:34 98.3 66 20 101/61 96 98/55 CBC/BMP: 08/09/16 0745 08/09/16 0745 Lab Results Laboratory Tests Test 08/08/16 08/08/16 08/08/16 08/09/16 13:55 15:55 16:20 07:45 White Blood Count 4.4 TH/MM3 5.9 TH/MM3 Red Blood Count 4.26 MIL/MM3 3.70 MIL/MM3 Hemoglobin 13.8 GM/DL 12.4 GM/DL Hematocrit 41.2 % 35.5 % Mean Corpuscular Volume 96.7 FL 96.0 FL Mean Corpuscular Hemoglobin 32.5 PG 33.6 PG Mean Corpuscular Hemoglobin 33.6 % 35.0 % Concent Red Cell Distribution Width 16.3 % 16.2 % Platelet Count 234 TH/MM3 198 TH/MM3 Mean Platelet Volume 8.0 FL 8.2 FL Neutrophils (%) (Auto) 53.7 % 62.5 % Lymphocytes (%) (Auto) 38.4 % 28.1 % Monocytes (%) (Auto) 5.6 % 5.9 % Eosinophils (%) (Auto) 1.7 % 2.4 % Basophils (%) (Auto) 0.6 % 1.1 % Neutrophils # (Auto) 2.4 TH/MM3 3.7 TH/MM3 Lymphocytes # (Auto) 1.7 TH/MM3 1.6 TH/MM3 Monocytes # (Auto) 0.2 TH/MM3 0.3 TH/MM3 Eosinophils # (Auto) 0.1 TH/MM3 0.1 TH/MM3 Basophils # (Auto) 0.0 TH/MM3 0.1 TH/MM3 CBC Comment DIFF FINAL DIFF FINAL Differential Comment Prothrombin Time 9.9 SEC Prothromb Time International 0.9 RATIO Ratio Sodium Level 138 MEQ/L 136 MEQ/L Potassium Level 4.0 MEQ/L 3.6 MEQ/L Chloride Level 99 MEQ/L 101 MEQ/L Carbon Dioxide Level 28.7 MEQ/L 30.6 MEQ/L Anion Gap 10 MEQ/L 4 MEQ/L Blood Urea Nitrogen 7 MG/DL 6 MG/DL Creatinine 1.10 MG/DL 0.93 MG/DL Estimat Glomerular Filtration 68 ML/MIN 83 ML/MIN Rate Random Glucose 102 MG/DL 94 MG/DL Lactic Acid Level 3.5 mmol/L 2.5 mmol/L Calcium Level 8.8 MG/DL 8.1 MG/DL Total Bilirubin 0.3 MG/DL Aspartate Amino Transf 72 U/L (AST/SGOT) Alanine Aminotransferase 53 U/L (ALT/SGPT) Alkaline Phosphatase 151 U/L Total Protein 7.2 GM/DL Albumin 3.4 GM/DL Lipase 225 U/L Urine Color YELLOW Urine Turbidity CLEAR Urine pH 6.5 Urine Specific [place] 1.019 Urine Protein NEG mg/dL Urine Glucose (UA) NEG mg/dL Urine Ketones NEG mg/dL Urine Occult Blood NEG Urine Nitrite NEG Urine Bilirubin NEG Urine Urobilinogen LESS THAN 2.0 MG/DL Urine Leukocyte Esterase NEG Urine WBC LESS THAN 1 /hpf Urine Hyaline Casts 1 /lpf Microscopic Urinalysis Comment CULT NOT INDICATED Physical Exam General General Appearance: Well Developed, Well Nourished, No Acute Distress, Comfortable Eyes Eye Exam: Pupils Equal, Pupils Reactive Ears & Nose Ears & Nose Exam: Nasal Mucosa Pyote Throat Throat Exam: Oral Mucosa Pyote & Moist Neck Neck Exam: Neck Supple, Trachea Midline Pulmonary Resp Exam: Clear Bilaterally, No Distress Cardiology CV Exam: Regular, Good Perfusion Gastrointestinal/Abdomen GI Exam: Soft, Non-Tender, Bowel Sounds Present, Non-Distended Musculoskeletal MS Exam: Joints Intact MS Remarks strength BUE 4/5, BLE 4/5 Integumentary Skin Exam: Warm, Dry Extremeties Extremities Exam: No Edema, Pedal Pulses Palpable Neurologic Neuro Exam: Alert, Awake, Oriented, Speech Clear, Moving All Extremities, No Focal Deficits Psychiatric Psych Exam: Appropriate Responses VTE Prophylaxis VTE Prophylaxis Device: SCDs Assessment/Plan Assessment/Plan Assessment Sepsis, lactic acidosis with Hypotension, improved Severe low back pain, etiology unclear. Acute on chronic, takes Lortab at home Weakness Rule out discitis Malnourished Chronic narcotic use COPD hx Hep C Constipation Management Continue with empiric abx, no cultures done in ED continue IVF Imaging studies reviewed, no evidence of discitis ID consult pending keep on abx for now no fever, WBC stable BP initially low, now 140s Acute on chronic pain, with weakness continue with Dilaudid and Arpin will checks TSH, B12, RPR PT eval C/O rash to arms Add Vistaril PRN Anxiety, depression continue with Clonazepam PRN Lamictal, Lexapro SCDs/Hep for DVT prophylaxis PPI for GI prophylaxis Add MOM, no BM x 3 days F/U on labs and PT report etiology of infection unknown Discussed with patient Discussed with nurse Discussed with Dr. Ferrera This patient was seen by myself and Dr. Ferrera, this note is written on his behalf. Qiana Owen Aug 09, 2016 13:40
[2016-08-09] MEDS: hydrOXYzine PAMOATE 25 MG CAP PO PRN ×2 (16:06→22:04)
[2016-08-09] MEDS: MAGNESIUM HYDROXIDE SUSP 30 ML CUP PO PRN (16:06)
[2016-08-09] MEDS ORDERED: ACETAMINOPHEN/HYDROcodone 325 MG/5 MG TAB PO PRN (18:15)
--- NOTE | 2016-08-09 19:39 | EKG ---
Date Performed: 08/08/2016 Time Performed: 13:37:57 PTAGE: 60 years EKG: Sinus rhythm Compared to prior tracing no significant change NORMAL ECG INTERPRETATION BASED ON A DEFAULT AGE OF 39 YEARS PREVIOUS TRACING : 10/03/2015 21.30 DOCTOR: Kameron Bills Interpretating Date/Time 08/09/2016 19:35:05
[2016-08-09] MEDS: lamoTRIgine 100 MG TAB PO SCH (19:54)
[2016-08-09] MEDS: clonazePAM 0.5 MG TAB PO SCH (19:54)
[2016-08-09] MEDS: ESCITALOPRAM OXALATE 10 MG TAB PO SCH (19:54)
[2016-08-09] MEDS: VANCOMYCIN 1,000 MG/NS 250 ML IV SCH ×2 (19:57)
[2016-08-10] VITALS: BP 117/67; PULSE 76; RESP 16; TEMP 97; O2SAT 95
[2016-08-10] MEDS: ACETAMINOPHEN/HYDROcodone 325 MG/10 MG TAB PO PRN ×6 (00:03→22:38)
[2016-08-10 04:00] VITALS: BP 141/80; PULSE 76; RESP 16; TEMP 97.3; O2SAT 95
[2016-08-10] MEDS: ONDANSETRON HCL 4 MG/2 ML VIAL IVP PRN ×4 (04:12→22:38)
[2016-08-10] MEDS: hydrOXYzine PAMOATE 25 MG CAP PO PRN ×4 (04:12→22:38)
[2016-08-10] MEDS: SODIUM CHLOR 0.9% 1000 ML INJ 1,000 ML IV SCH ×2 (04:13→09:27)
[2016-08-10] MEDS: HEPARIN SODIUM - SQ 10,000 UNITS/ML VIAL SQ SCH ×2 (04:13→16:55)
[2016-08-10] MEDS: PIPERACIL-TAZO 3.375 GM PREMIX 50 ML IV SCH ×2 (04:13→10:24)
[2016-08-10] MEDS: MAGNESIUM HYDROXIDE SUSP 30 ML CUP PO PRN (05:01)
[2016-08-10 08:00] VITALS: BP 127/72; PULSE 79; RESP 18; TEMP 96.4; O2SAT 94
[2016-08-10] MEDS: PANTOPRAZOLE SOD 20 MG DELAYED RELEASE TAB PO SCH (09:12)
[2016-08-10] MEDS: SODIUM CHLORIDE 0.9% FLUSH 10 ML FLUSH IV FLUSH SCH ×2 (09:26→19:54)
--- NOTE | 2016-08-10 11:55 | HHI.PR ---
Subjective Remarks Sleeping, arousable, complaining of his chronic back pain, no fever, no cough, denies complaints otherwise (Enio Ferrera MD) Objective Objective Results - Vital Signs Date Time Temp Pulse Resp B/P Pulse Ox O2 Delivery O2 Flow Rate FiO2 08/10/16 08:00 96.4 79 18 127/72 94 08/10/16 04:00 97.3 76 16 141/80 95 08/10/16 00:00 97.0 76 16 117/67 95 08/09/16 21:00 92 08/09/16 19:00 97.0 75 16 150/88 96 08/09/16 15:26 96.4 77 17 142/86 94 08/09/16 14:02 92 I/O 08/09/16 08/09/16 08/09/16 08/10/16 08/10/16 08/10/16 07:00 15:00 23:00 07:00 15:00 23:00 Intake Total 480 ml 2099 ml 480 ml 2100 ml Output Total 1000 ml 400 ml Balance -520 ml 1699 ml 480 ml 2100 ml Intake Oral 480 ml 480 ml 480 ml 250 ml IV Total 1619 ml 1850 ml Output Urine Total 1000 ml 400 ml # Voids 3 3 2 # Bowel Movements 0 0 0 (Davida Messina) Result Diagram: 08/09/16 0745 08/09/16 0745 Physical Exam Physical Exam PHYSICAL EXAMINATION GENERAL: This is a well-developed, well-nourished male who appears to be in no acute distress. He is alert and awake, []. HEAD: Normocephalic without any lesion or mass noted. Facial features appear symmetric. OROPHARYNGEAL: Oropharynx without erythema or edema. NECK: Supple. No nuchal rigidity or lymphadenopathy. Trachea midline without deviation. CARDIAC: Regular rhythm, regular rate, S1 and S2 are heard. Murmur []; no gallops or rubs. LUNGS: Clear to auscultation bilaterally. [] wheeze, [] rhonchi or [] rale. No use of accessory muscles on inspiration or expiration. ABDOMEN: Soft, nontender, no organomegaly or masses. Bowel sounds are heard in all four quadrants. No rebound. No guarding. EXTREMITIES: [] edema. Pulses equal bilateral. [] cyanosis. NEUROLOGICAL: Patient mood and affect appropriate. No focal deficit SKIN:Warm and moist (Davida Messina) A/P Assessment and Plan Sepsis, lactic acidosis with Hypotension, improved, unknown any urology Severe low back pain, degenerative disc disease without acute changes noted Weakness, lower extremities right greater than left, chronic Discitis ruled out Chronic narcotic use, chronic pain COPD hx Hep C Constipation, Management Vital signs reviewed, normal ranges now Labs and tests reviewed, no discitis seen, degenerative disc disease continue IVF for now ID consult, DC'd IV antibiotics Degenerative disc disease, test showed no acute changes, patient states still having low back pain unrelieved with by mouth Mccoy Acute on chronic pain, with weakness continue by mouth Mccoy, patient states medication ineffective. We'll discuss options with Dr. Ferrera PT eval done C/O rash to arms Add Vistaril PRN Anxiety, depression continue with Clonazepam PRN Lamictal, Lexapro SCDs/Hep for DVT prophylaxis PPI for GI prophylaxis etiology of infection unknown Constipation probable secondary to long-standing by mouth pain management Patient states no BM in at least one week, will order mag citrate, check for impaction. If no BM, may give fleets this pm. Discharge planning, possible DC today, and return to PCP for any further workup. Discussed With: Nurse (Davida Messina) Assessment and Plan seen, examined by myself, Dr Ferrera, today Discussed with patient Discussed with infectious disease specialist Blood cultures ordered and pending Discussed with mid level provider The exam, history, and the medical decision-making described in the above note were completed with the assistance of the mid-level provider. I reviewed the findings presented. I attest that I had a [id number] encounter with the patient on the same day, and personally performed and documented my assessment and findings in the medical record. (Enio Ferrera MD) Davida Messina Aug 10, 2016 11:55 Enio Ferrera MD Aug 10, 2016 17:44
[2016-08-10 12:00] VITALS: BP 118/77; PULSE 73; RESP 18; TEMP 97.3; O2SAT 92
[2016-08-10] MEDS ORDERED: SOD PHOSPHATE/SOD BIPHOSPHATE (ADULT) ENEMA 133ML RECTAL ONE (12:15)
[2016-08-10] MEDS ORDERED: MAGNESIUM CITRATE SOLN 300 ML BTL PO ONE (12:15)
[2016-08-10 16:00] VITALS: BP 142/82; PULSE 74; RESP 18; TEMP 98; O2SAT 95
[2016-08-10] MEDS: lamoTRIgine 100 MG TAB PO SCH (19:54)
[2016-08-10] MEDS: clonazePAM 0.5 MG TAB PO SCH (19:54)
[2016-08-10] MEDS: ESCITALOPRAM OXALATE 10 MG TAB PO SCH (19:54)
[2016-08-10 20:00] VITALS: BP 139/74; PULSE 76; RESP 19; TEMP 97.5; O2SAT 95
[2016-08-11] VITALS: BP 120/69; PULSE 80; RESP 19; TEMP 97.6; O2SAT 95
[2016-08-11] MEDS: HEPARIN SODIUM - SQ 10,000 UNITS/ML VIAL SQ SCH ×2 (02:37→14:43)
[2016-08-11] MEDS: ACETAMINOPHEN/HYDROcodone 325 MG/10 MG TAB PO PRN ×6 (02:37→23:07)
[2016-08-11] MEDS: SODIUM CHLOR 0.9% 1000 ML INJ 1,000 ML IV SCH (03:50)
[2016-08-11 04:00] VITALS: BP 134/80; PULSE 72; RESP 19; TEMP 97.8; O2SAT 94
[2016-08-11] MEDS: hydrOXYzine PAMOATE 25 MG CAP PO PRN ×4 (04:55→23:07)
[2016-08-11] MEDS: ONDANSETRON HCL 4 MG/2 ML VIAL IVP PRN ×4 (04:56→23:07)
[2016-08-11 08:00] VITALS: BP 130/86; PULSE 68; RESP 18; TEMP 97.1; O2SAT 96
[2016-08-11] MEDS: PANTOPRAZOLE SOD 20 MG DELAYED RELEASE TAB PO SCH (08:50)
[2016-08-11] MEDS: SODIUM CHLORIDE 0.9% FLUSH 10 ML FLUSH IV FLUSH SCH ×2 (08:51→19:39)
[2016-08-11 12:00] VITALS: BP 142/80; PULSE 75; RESP 18; TEMP 97.9; O2SAT 96
--- NOTE | 2016-08-11 12:26 | HHI.PR ---
Subjective Remarks resting in bed, \ No SOB states just weak and tired, no facial grimmace Objective Objective Results - Vital Signs Date Time Temp Pulse Resp B/P Pulse Ox O2 Delivery O2 Flow Rate FiO2 08/11/16 11:36 18 08/11/16 08:00 97.1 68 18 130/86 96 08/11/16 04:00 97.8 72 19 134/80 94 08/11/16 00:00 97.6 80 19 120/69 95 08/10/16 20:00 97.5 76 19 139/74 95 08/10/16 16:00 98.0 74 18 142/82 95 I/O 08/10/16 08/10/16 08/10/16 08/11/16 08/11/16 08/11/16 07:00 15:00 23:00 07:00 15:00 23:00 Intake Total 2100 ml 960 ml 350 ml Balance 2100 ml 960 ml 350 ml Intake Oral 250 ml 960 ml 350 ml IV Total 1850 ml # Voids 2 5 3 # Bowel Movements 0 1 1 Result Diagram: 08/09/16 0745 08/09/16 0745 ROS General: Weakness (generalized), Other (10 point ROS done. positives noted.) GI: BM (resolved) Neuro/MS: Other (back pain, chronic) Physical Exam Physical Exam PHYSICAL EXAMINATION GENERAL: This is a well-developed, male who appears to be in no acute distress. He is alert and awake, HEAD: Normocephalic without any lesion or mass noted. Facial features appear symmetric. OROPHARYNGEAL: Oropharynx without erythema or edema. NECK: Supple. No nuchal rigidity or lymphadenopathy. Trachea midline without deviation. CARDIAC: Regular rhythm, regular rate, S1 and S2 are heard. Murmur none no gallops or rubs. LUNGS: Clear to auscultation bilaterally. no cough ABDOMEN: Soft, nontender, no organomegaly or masses. Bowel sounds are heard in all four quadrants. No rebound. No guarding. EXTREMITIES: no edema. Pulses equal bilateral. NEUROLOGICAL: Patient mood and affect appropriate. No focal deficit SKIN:Warm and moist Objective Remarks Im ok I guess. just tired A/P Assessment and Plan Sepsis, lactic acidosis with Hypotension, resolved, unknown any urology Severe low back pain, degenerative disc disease without acute changes noted Weakness, lower extremities right greater than left, chronic Discitis ruled out Chronic narcotic use, chronic pain COPD hx Hep C Constipation, resolved. Management Vital signs reviewed, normal ranges now Labs and tests reviewed, no discitis seen, degenerative disc disease d/c IVF ID consult, DC'd IV antibiotics Degenerative disc disease, test showed no acute changes, patient states still having low back pain unrelieved with by mouth [place] Acute on chronic pain, with weakness PO pain management Add Vistaril PRN Anxiety, depression continue with Clonazepam PRN Lamictal, Lexapro SCDs/Hep for DVT prophylaxis PPI for GI prophylaxis etiology of infection unknown Constipation probable secondary to long-standing by mouth pain management Patient states no BM in at least one week, will order mag citrate, check for impaction. If no BM, may give fleets this pm. Discharge planning, possible DC today, and return to PCP for any further workup. Discussed With: Davida Hightower Aug 11, 2016 12:26
[2016-08-11 16:00] VITALS: BP 116/70; PULSE 70; RESP 18; TEMP 97.5; O2SAT 96
--- NOTE | 2016-08-11 19:32 | RADRPT ---
EXAM DATE/TIME: 08/11/2016 19:14 [facility] COMPARISON: CHEST SINGLE AP, October 03, 2015, 20:17. INDICATIONS : Cough MEDICAL HISTORY : Hypertension. Chronic obstructive pulmonary disease. SURGICAL HISTORY : None. ENCOUNTER: Initial ACUITY: 1 month PAIN SCORE: 0/10 LOCATION: Bilateral chest FINDINGS: A single view of the chest demonstrates the lungs to be symmetrically aerated without evidence of mas s, infiltrate or effusion. The cardiomediastinal contours are unremarkable. Osseous structures are intact. CONCLUSION: The lungs are clear. Tate Doyle MD on August 11, 2016 at 19:30 Board Certified Radiologist. This report was verified electronically.
[2016-08-11] MEDS: clonazePAM 0.5 MG TAB PO SCH (19:36)
[2016-08-11] MEDS: ESCITALOPRAM OXALATE 10 MG TAB PO SCH (19:36)
[2016-08-11] MEDS: lamoTRIgine 100 MG TAB PO SCH (19:36)
[2016-08-11] MEDS ORDERED: PHARMACY ORDERED LAB ONE (19:45)
[2016-08-11 20:05] VITALS: BP 126/73; PULSE 73; RESP 17; TEMP 97.8; O2SAT 96
[2016-08-12 00:05] VITALS: BP 138/70; PULSE 74; RESP 17; TEMP 97.8; O2SAT 96
[2016-08-12] MEDS: ACETAMINOPHEN/HYDROcodone 325 MG/10 MG TAB PO PRN ×4 (03:00→13:44)
[2016-08-12] MEDS: HEPARIN SODIUM - SQ 10,000 UNITS/ML VIAL SQ SCH ×2 (03:01→13:44)
[2016-08-12 04:10] VITALS: BP 120/69; PULSE 73; RESP 17; TEMP 97.7; O2SAT 96
[2016-08-12] MEDS: hydrOXYzine PAMOATE 25 MG CAP PO PRN ×2 (05:09→10:16)
[2016-08-12] MEDS: ONDANSETRON HCL 4 MG/2 ML VIAL IVP PRN ×2 (05:09→10:16)
[2016-08-12 07:55] VITALS: BP 112/62; PULSE 78; RESP 16; TEMP 97.5; O2SAT 93
[2016-08-12] MEDS: PANTOPRAZOLE SOD 20 MG DELAYED RELEASE TAB PO SCH (08:45)
[2016-08-12] MEDS: SODIUM CHLORIDE 0.9% FLUSH 10 ML FLUSH IV FLUSH SCH (08:45)
[2016-08-12 12:00] VITALS: BP 121/59; PULSE 70; RESP 16; TEMP 97.1; O2SAT 92
--- NOTE | 2016-08-12 12:18 | HHI.PR ---
Subjective Remarks resting in bed, ordering lunch No SOB states just tired, no cough noted, CXR normal (Davida Messina) Objective Objective Results - Vital Signs Date Time Temp Pulse Resp B/P Pulse Ox O2 Delivery O2 Flow Rate FiO2 08/12/16 07:55 97.5 78 16 112/62 93 08/12/16 04:10 97.7 73 17 120/69 96 08/12/16 00:05 97.8 74 17 138/70 96 08/11/16 20:05 97.8 73 17 126/73 96 08/11/16 16:00 97.5 70 18 116/70 96 08/11/16 15:43 18 I/O 08/11/16 08/11/16 08/11/16 08/12/16 08/12/16 08/12/16 07:00 15:00 23:00 07:00 15:00 23:00 Intake Total 350 ml 840 ml 240 ml Balance 350 ml 840 ml 240 ml Intake Oral 350 ml 840 ml 240 ml # Voids 3 4 3 # Bowel Movements 1 1 0 (Davida Messina) Result Diagram: 08/09/16 0745 08/09/16 0745 ROS General: Other (10 point ROS done, no cough noted, appetite good, states tired , laying in bed most of the time. Other systems unremarkable) Pulmonary: Cough (none noted,) (Davida Messina) Physical Exam Physical Exam PHYSICAL EXAMINATION GENERAL: This is a well-developed, well-nourished male who appears to be in no acute distress. He is alert and awake HEAD: Normocephalic without any lesion or mass noted. Facial features appear symmetric. OROPHARYNGEAL: Oropharynx without erythema or edema. NECK: Supple. No nuchal rigidity or lymphadenopathy. Trachea midline without deviation. CARDIAC: Regular rhythm, regular rate, S1 and S2 are heard. LUNGS: Clear to auscultation bilaterally. no cough with deep inspiration ABDOMEN: Soft, nontender, no organomegaly or masses. Bowel sounds are heard in all four quadrants. No rebound. No guarding. EXTREMITIES: no edema. Pulses equal bilateral. NEUROLOGICAL: Patient mood and affect flat. No focal deficit SKIN:Warm and moist Objective Remarks Im ok I guess. (Davida Messina) A/P Assessment and Plan Sepsis, lactic acidosis with Hypotension, resolved, unknown etiology chronic low back pain, degenerative disc disease without acute changes noted Weakness, generalized Discitis ruled out Chronic narcotic use, chronic pain COPD hx Hep C Constipation, resolved. Management Vital signs reviewed, normal ranges now Labs and tests reviewed, no discitis seen, degenerative disc disease d/c IVF ID consult, DC'd IV antibiotics cough, No productive sputum noted, CXR clear Degenerative disc disease, test showed no acute changes, patient states still having low back pain unrelieved with by mouth [place] Acute on chronic pain, with weakness PO pain management Add Vistaril PRN Anxiety, depression medical management SCDs/Hep for DVT prophylaxis PPI for GI prophylaxis etiology of infection unknown Constipation , resolved, Discharge planning, possible DC today, and return to PCP for any further workup. Discussed With: Nurse, Other (Dr. More, seen on his behalf) (Davida Messina) Assessment and Plan pt IS SEEN & EXAMINED chart reviewed No evidence of sepsis Off abx BP stable ambulated better w PT/RW DDD/ch back pain medically stable for d.c d/c home today see Orders see [facility] f/u pcp (Sam More MD) Davida Messina Aug 12, 2016 12:18 Sam More MD Aug 12, 2016 12:39
[2016-08-12] MEDS ORDERED: HYDR-3516 PO (12:46)
--- NOTE | 2016-09-01 15:28 | HHI.DS ---
Discharge Summary Admission Date Aug 08, 2016 at 15:52 Discharge Date: Aug 12, 2016 Admitting Diagnosis sepsis, lower back pain (1) Sepsis (2) Back pain (3) COPD (chronic obstructive pulmonary disease) (4) Hepatitis C (5) GERD Imaging Last Impressions Chest X-Ray 08/11/16 0000 Signed Impressions: Service Date/Time: Thursday, August 11, 2016 19:14 - CONCLUSION: The lungs are clear. Tate Doyle MD Abdomen/Pelvis CT 08/08/16 1347 Signed Impressions: Service Date/Time: July 15:10 - CONCLUSION: The left kidney is smaller as compared to the right side and the liver is fatty. Fanny Jang MD Thoracic Spine MRI 08/08/16 0000 Signed Impressions: Service Date/Time: July 18:22 - CONCLUSION: Degenerative changes without any significant compromise to the thecal sac or the exiting nerve roots. Fanny Jang MD Lumbar Spine MRI 08/08/16 0000 Signed Impressions: Service Date/Time: July 18:22 - CONCLUSION: Degenerative changes with facet arthrosis mainly at L4-5 and L5-S1 without any significant compromise to the thecal sac or the exiting nerve roots. Fanny Jang MD Hospital Course This is a 60-year-old male who had a sudden onset of severe low back pain that started a little less than 24 hours prior to his presentation to the emergency department at [facility] today. He came in by ambulance. At the ambulance his systolic was 80. He was given IV fluids and his systolic blood pressure came up to normal range. His lactic acid was 3.5. CT scan of the abdomen was done and was unremarkable. MRI of the thoracic and lumbar spine was ordered and pending in ED. He was alert and oriented. Was complaining that the morphine did not do anything for him. He requested IV Demerol. He mentioned that with his pain he is having weakness in his lower extremities however he is actually able to move his lower extremities above the level of the bed during the interview. No fever chills or diaphoresis. Pt. was admitted for further evaluation and treatment for: Sepsis, lactic acidosis with Hypotension, improved Severe low back pain, etiology unclear. Acute on chronic, takes Lortab at home Weakness Rule out discitis Malnourished Chronic narcotic use COPD hx Hep C Constipation During the course of the hospitalization, the following took place: Put on IVF, empiric abx, no cultures done in ED Blood cultures ordered remained negative Imaging studies reviewed, no evidence of discitis ID consulted no fever, WBC stable BP initially low,then up to 140s ID recommended to stop abx and monitor Acute on chronic pain, with weakness continued with Dilaudid and [place] Checked TSH, B12, RPR-ok PT eval done, ambulated fairly well C/O rash to arms Added Vistaril PRN Anxiety, depression continued with Clonazepam PRN Lamictal, Lexapro SCDs/Hep for DVT prophylaxis PPI for GI prophylaxis Added MOM, no BM x 3 days No evidence of sepsis Off abx BP stable ambulated better w PT and walker DDD/ch back pain medically stable for d.c d/c home today Pt Condition on Discharge: Stable Discharge Disposition: Discharge Home Discharge Instructions DIET: Follow Instructions for: Heart Healthy Diet Fluid Restrictions: none Activities you can perform: Weight Bearing as Julisa Other Activity Instructions: fall precautions Follow up Referrals: PCP Follow-up - 1 Week New Medications: Hydrocodone-Acetaminophen (Hydrocodone-Acetaminophen) 5-325 mg Tab 1 TAB PO Q4H PRN pain 1-5 #30 TAB Continued Medications: Amlodipine (Norvasc) 10 Mg Tab 10 MG PO DAILY Blood Pressure Management Ref 0 TAB Clonazepam (Klonopin) 0.5 Mg Tab 0.5 MG PO HS Ref 0 TAB Escitalopram (Lexapro) 5 Mg Tab 5 MG PO DAILY Ref 0 TAB Lamotrigine (Lamictal) 100 Mg Tab 100 MG PO DAILY Control Seizures Ref 0 TAB Omeprazole (Prilosec) 20 Mg Cap 20 MG PO DAILY Ref 0 Qiana Blum September 01, 2016 15:28
== END 2016-08-12 17:07 | disposition home or self-care (01) | DRG 872 ==
LOC: NEPE 13:26 → NEDA 15:52 → N06B 19:08
PROVIDERS: ADMIT Specialist; ATTEND Specialist
DX: A41.9 Sepsis, unspecified organism (principal); E87.2 Acidosis; E46 Unspecified protein-calorie malnutrition; J44.9 Chronic obstructive pulmonary disease, unspecified; I12.9 Hypertensive chronic kidney disease with stage 1 through stage 4 chronic kidney disease, or unspecified chronic kidney disease; M19.90 Unspecified osteoarthritis, unspecified site; K21.9 Gastro-esophageal reflux disease without esophagitis; N18.9 Chronic kidney disease, unspecified; G89.4 Chronic pain syndrome; G47.33 Obstructive sleep apnea (adult) (pediatric); F14.10 Cocaine abuse, uncomplicated; R21 Rash and other nonspecific skin eruption; M51.37 Other intervertebral disc degeneration, lumbosacral region; K59.03 Drug induced constipation; T40.2X5A Adverse effect of other opioids, initial encounter; F17.210 Nicotine dependence, cigarettes, uncomplicated; F31.9 Bipolar disorder, unspecified; F41.9 Anxiety disorder, unspecified; Z68.22 Body mass index [BMI] 22.0-22.9, adult; Z79.891 Long term (current) use of opiate analgesic; Z85.46 Personal history of malignant neoplasm of prostate; Z86.19 Personal history of other infectious and parasitic diseases
CPT/HCPCS: 71010; 72146; 72148; 74177; 80048; 80053; 81001; 82607; 83605; 83690; 84443; 85025; 85610; 86592; 87040; 93005; 96361; 96374; J1170; J1644; J2270; J2405; J2543; J3370; J7030; J7050; Q0177; Q9967

== ENCOUNTER 2017-01-06 16:06 | Emergency (ER) | payer OTHER, MEDICAID ==
[~2017-01-06] VITALS: Ht 160 cm; Wt 60.0 kg
[~2017-01-06 16:06] MED LIST changes: +HYDR-3516 PO; +LEXA5TAB PO; -OMPR20CCR PO; +PRIL20CA9 PO; -PRIS100T PO; -ZYPR20TA PO
[2017-01-06 16:13] VITALS: BP 101/60; PULSE 78; RESP 18; TEMP 98.7; O2SAT 98
[2017-01-06 17:02] LABS: AUTOMATED NEUTROPHIL # 3.1 TH/MM3 (1.8-7.7); BASOPHIL % 0.7 % (0.0-2.0); EOSINOPHIL # 0.1 TH/MM3 (0-0.4); EOSINOPHIL % 1.8 % (0.0-4.0); HEMATOCRIT 42.7 % (39.0-51.0); HEMO FLAGS DIFF FINAL; LYMPH % 45.1 % (9.0-44.0); LYMPHOCYTE # 2.9 TH/MM3 (1.0-4.8); MEAN CELL VOLUME 96.3 FL (80.0-100.0); MEAN CORPUSCULAR HGB CONC 34.2 % (32.0-36.0); MONO % 4.9 % (0.0-8.0); NEUT % 47.5 % (16.0-70.0); PLATELET COUNT 188 TH/MM3 (150-450); RED BLOOD COUNT 4.43 MIL/MM3 (4.50-5.90); RED CELL DISTRIBUTION WIDTH 13.8 % (11.6-17.2); WHITE BLOOD COUNT 6.5 TH/MM3 (4.0-11.0)
[2017-01-06 17:17] LABS: ANION GAP 7 MEQ/L (5-15); AST (GOT) 8 U/L (15-37); BICARBONATE 25.8 MEQ/L (21.0-32.0); BLOOD UREA NITROGEN 4 MG/DL (7-18); CHLORIDE 106 MEQ/L (98-107); GLOMERULAR FILTRATION RATE 82 ML/MIN (>89); POTASSIUM 3.6 MEQ/L (3.5-5.1); SODIUM (NA) 139 MEQ/L (136-145)
[2017-01-06 17:18] LABS: ALT (GPT) 15 U/L (12-78)
[2017-01-06 17:20] LABS: ALKALINE PHOSPHATASE 108 U/L (45-117); TOTAL BILIRUBIN ADULT 0.2 MG/DL (0.2-1.0)
--- NOTE | 2017-01-06 18:02 | RADRPT ---
EXAM DATE/TIME: 01/06/2017 17:21 [facility] COMPARISON: CT BRAIN W/O CONTRAST, June 20, 2011, 19:43. INDICATIONS : Trauma, patient fell. RADIATION DOSE: 32.01 CTDIvol (mGy) MEDICAL HISTORY : Hypertension. Cardiovascular disease Carcinoma, prostate.COPD , renal failure SURGICAL HISTORY : None. ENCOUNTER: Initial ACUITY: 1 day PAIN SCALE: 5/10 LOCATION: cranial TECHNIQUE: Multiple contiguous axial images were obtained of the head. Using automated exposure control and adj ustment of the mA and/or kV according to patient size, radiation dose was kept as low as reasonably a chievable to obtain optimal diagnostic quality images. DICOM format image data is available electro nically for review and comparison. FINDINGS: CEREBRUM: The ventricles are normal for age. No evidence of midline shift, mass lesion, hemorrhage or acute in farction. No extra-axial fluid collections are seen. POSTERIOR FOSSA: The cerebellum and brainstem are intact. The 4th ventricle is midline. The cerebellopontine angle i s unremarkable. EXTRACRANIAL: The visualized portion of the orbits is intact. SKULL: The calvaria is intact. No evidence of skull fracture. CONCLUSION: No acute disease. Malcoml Calderon MD on January 06, 2017 at 18:01 Board Certified Radiologist. This report was verified electronically.
--- NOTE | 2017-01-06 18:14 | PD ---
HPI Chief Complaint: Fall Time Seen by Provider: 16:14 Travel History International Travel<30 days: No Contact w/Intl Traveler<30days: No Traveled to known affect area: No History of Present Illness HPI This is a 61-year-old male who presents to the emergency department having been drinking alcohol today when he had a fall. He hit his head. He also says his entire body hurts but he doesn't think anything is broken. His pain is constant , moderate severity, with no weakness or numbness. The patient takes Lortab for chronic pain and Ativan at home. PFSH Past Medical History Arthritis: Yes Asthma: No Autoimmune Disease: No Bipolar Disorder: Yes Anxiety: Yes Depression: Yes Heart Rhythm Problems: No Cancer: Yes (PROSTATE) Cardiac Catheterization: Yes Cardiovascular Problems: Yes High Cholesterol: No Chemotherapy: No Chest Pain: No Congestive Heart Failure: No COPD: Yes Cerebrovascular Accident: No Diabetes: No Diminished Hearing: No Diverticulitis: Yes Endocrine: No Gastrointestinal Disorders: Yes GERD: Yes Genitourinary: Yes Hiatal Hernia: No Hypertension: Yes Immune Disorder: No Kidney Stones: No Musculoskeletal: Yes (arthritis) Neurologic: No Psychiatric: Yes Reproductive: No Respiratory: Yes (COPD) Migraines: No Radiation Therapy: No Renal Failure: Yes Seizures: No Sickle Cell Disease: No Sleep Apnea: Yes Thyroid Disease: No Ulcer: Yes Past Surgical History AICD: No Arteriovenous Shunt: No Cardiac Surgery: No Cholecystectomy: Yes Ear Surgery: No Endocrine Surgery: No Eye Surgery: No Genitourinary Surgery: Yes (prostate removal 2009) Gynecologic Surgery: No Insulin Pump: No Joint Replacement: No Oral Surgery: Yes (tooth extractions) Pacemaker: No Prostatectomy: Yes Thoracic Surgery: No Other Surgery: Yes (NECK/BACK SURGERY) Social History Alcohol Use: Yes Tobacco Use: Yes (/2 PPD) Substance Use: Yes (CRACK/COCAINE) Allergies-Medications (Allergen,Severity, Reaction): Coded Allergies: No Known Allergies (Verified , 08/08/16) Reported Meds & Prescriptions Reported Meds & Active Scripts Active Hydrocodone-Acetaminophen 5-325 mg Tab 1 Tab PO Q4H PRN Reported Lexapro (Escitalopram Oxalate) 5 Mg Tab 5 Mg PO DAILY Klonopin (Clonazepam) 0.5 Mg Tab 0.5 Mg PO HS Lamictal (Lamotrigine) 100 Mg Tab 100 Mg PO DAILY Norvasc (Amlodipine Besylate) 10 Mg Tab 10 Mg PO DAILY Review of Systems Except as stated in HPI: all other systems reviewed are Neg Physical Exam Narrative GENERAL: Frail disheveled-appearing male SKIN: Focused skin assessment warm and dry. HEAD: Atraumatic. Normocephalic. EYES: Pupils equal and round. No injection or drainage. ENT: Moist mucous membranes NECK: Trachea midline. CARDIOVASCULAR: Regular rate and rhythm. No murmur appreciated. RESPIRATORY: Clear to auscultation. Breath sounds equal bilaterally. GASTROINTESTINAL: Abdomen soft, non-tender, nondistended. MUSCULOSKELETAL: No obvious deformities. NEUROLOGICAL: Awake and alert. No obvious cranial nerve deficits. Moving all extremities. PSYCHIATRIC: Appropriate mood and affect; insight and judgment normal. Data Data Last Documented VS Vital Signs Date Time Temp Pulse Resp B/P (MAP) Pulse Ox O2 Delivery O2 Flow Rate FiO2 01/06/17 16:17 78 18 98 Room Air 01/06/17 16:13 98.7 101/60 (74) Orders Orders Ct Brain W/O Iv Contrast(Rout) (01/06/17 ) Complete Blood Count With Diff (01/06/17 16:40) Comprehensive Metabolic Panel (01/06/17 16:40) ^ Insert Iv (01/06/17 16:40) Diet Regular Basic (01/06/17 Dinner) Labs Laboratory Tests Test 01/06/17 16:49 White Blood Count 6.5 TH/MM3 Red Blood Count 4.43 MIL/MM3 Hemoglobin 14.6 GM/DL Hematocrit 42.7 % Mean Corpuscular Volume 96.3 FL Mean Corpuscular Hemoglobin 33.0 PG Mean Corpuscular Hemoglobin Concent 34.2 % Red Cell Distribution Width 13.8 % Platelet Count 188 TH/MM3 Mean Platelet Volume 9.3 FL Neutrophils (%) (Auto) 47.5 % Lymphocytes (%) (Auto) 45.1 % Monocytes (%) (Auto) 4.9 % Eosinophils (%) (Auto) 1.8 % Basophils (%) (Auto) 0.7 % Neutrophils # (Auto) 3.1 TH/MM3 Lymphocytes # (Auto) 2.9 TH/MM3 Monocytes # (Auto) 0.3 TH/MM3 Eosinophils # (Auto) 0.1 TH/MM3 Basophils # (Auto) 0.0 TH/MM3 CBC Comment DIFF FINAL Differential Comment Blood Urea Nitrogen 4 MG/DL Creatinine 0.93 MG/DL Random Glucose 72 MG/DL Total Protein 7.3 GM/DL Albumin 3.7 GM/DL Calcium Level 9.2 MG/DL Alkaline Phosphatase 108 U/L Aspartate Amino Transf (AST/SGOT) 8 U/L Alanine Aminotransferase (ALT/SGPT) 15 U/L Total Bilirubin 0.2 MG/DL Sodium Level 139 MEQ/L Potassium Level 3.6 MEQ/L Chloride Level 106 MEQ/L Carbon Dioxide Level 25.8 MEQ/L Anion Gap 7 MEQ/L Estimat Glomerular Filtration Rate 82 ML/MIN MDM Medical Decision Making Medical Screen Exam Complete: Yes Emergency Medical Condition: Yes Interpretation(s) afebrile, no tachycardia, normotensive no leukocytosis electrolytes within normal limits Last [address] 01/06/17 0000 Signed Impressions: Service Date/Time: Friday, January 06, 2017 17:21 - CONCLUSION: No acute disease. Malcolm Calderon MD Differential Diagnosis Subdural hematoma, epidural hematoma, subarachnoid hemorrhage, electrolyte abnormality Narrative Course This is a 61-year-old male who has a history chronic alcohol abuse who presents to the emergency department having been drinking alcohol when he fell. He has a benign exam. CT of the head is unremarkable. Labs are all reassuring. I think patient can safely be discharged. Diagnosis Primary Impression: Closed head injury Qualified Codes: S09.90XA - Unspecified injury of head, initial encounter Patient Instructions: General Instructions Additional Instructions: If you develop headache, difficulty walking, difficulty talking, weakness, numbness, lightheadedness or severe pain return to the emergency department. It is common to have sore muscles following an accident. If you are not improved in 2 days follow up with your primary care physician without fail. Med/Other Pt SpecificInfo: No Change to Meds Disposition: 01 DISCHARGE HOME Condition: Stable Connie Mendosa MD Jan 06, 2017 18:14
[2017-01-06] MEDS ORDERED: ACETAMINOPHEN/HYDROcodone 325 MG/5 MG TAB PO ONE (18:30)
[2017-01-06 18:53] VITALS: BP 119/67; PULSE 82; RESP 16; O2SAT 97
[2017-01-06 21:57] VITALS: BP 122/78; PULSE 88; RESP 18; O2SAT 98
== END 2017-01-06 22:29 | disposition home or self-care (01) ==
LOC: NEPE 16:06
DX: S09.90XA Unspecified injury of head, initial encounter (principal); I10 Essential (primary) hypertension; N19 Unspecified kidney failure; G47.30 Sleep apnea, unspecified; F17.200 Nicotine dependence, unspecified, uncomplicated; W19.XXXA Unspecified fall, initial encounter; Z87.39 Personal history of other diseases of the musculoskeletal system and connective tissue; Z86.59 Personal history of other mental and behavioral disorders; Z85.46 Personal history of malignant neoplasm of prostate; Z86.79 Personal history of other diseases of the circulatory system; Z87.09 Personal history of other diseases of the respiratory system; Z87.19 Personal history of other diseases of the digestive system; Z87.448 Personal history of other diseases of urinary system
CPT/HCPCS: 70450; 80053; 85025; 99284

== ENCOUNTER 2017-04-09 10:57 | Observation (INO) | payer OTHER, MEDICAID ==
[~2017-04-09] VITALS: Ht 162.6 cm; Wt 57.0 kg
[~2017-04-09 10:57] MED LIST changes: -PRIL20CA9 PO
[2017-04-09 11:10] VITALS: BP 144/70; PULSE 58; RESP 15; TEMP 97.6; O2SAT 98
[2017-04-09] MEDS ORDERED: SODIUM CHLOR 0.9% 1000 ML INJ 1,000 ML IV SCH (11:35)
[2017-04-09] MEDS ORDERED: SODIUM CHLORIDE 0.9% FLUSH 10 ML FLUSH IV FLUSH PRN (11:45)
[2017-04-09] MEDS ORDERED: NALOXONE HCL 0.4 MG/ML AMP IV PUSH PRN (11:45)
[2017-04-09] MEDS ORDERED: NALOXONE HCL 2 MG/2 ML VIAL IM ONE (11:45)
--- NOTE | 2017-04-09 12:11 | RADRPT ---
EXAM DATE/TIME: 04/09/2017 11:58 [facility] COMPARISON: No previous studies available for comparison. INDICATIONS : Altered mental status, found unresponsive. RADIATION DOSE: 33.96 CTDIvol (mGy) MEDICAL HISTORY : Carcinoma, prostate. Renal failure, chronic. Chronic obstructive pulmonary disease.Hypertension. SURGICAL HISTORY : Prostatectomy. ENCOUNTER: Initial ACUITY: 1 day PAIN SCALE: Non-responsive LOCATION: cranial TECHNIQUE: Multiple contiguous axial images were obtained of the head. Using automated exposure control and adj ustment of the mA and/or kV according to patient size, radiation dose was kept as low as reasonably a chievable to obtain optimal diagnostic quality images. DICOM format image data is available electro nically for review and comparison. FINDINGS: CEREBRUM: The ventricles are normal for age. No evidence of midline shift, mass lesion, hemorrhage or acute in farction. No extra-axial fluid collections are seen. POSTERIOR FOSSA: The cerebellum and brainstem are intact. The 4th ventricle is midline. The cerebellopontine angle i s unremarkable. EXTRACRANIAL: The visualized portion of the orbits is intact. SKULL: The calvaria is intact. No evidence of skull fracture. CONCLUSION: 1. No acute intracranial abnormalities. Jun Gibson MD on April 09, 2017 at 12:09 Board Certified Radiologist. This report was verified electronically.
[2017-04-09 12:13] LABS: AUTOMATED NEUTROPHIL # 9.4 TH/MM3 (1.8-7.7); BASOPHIL % 0.3 % (0.0-2.0); EOSINOPHIL # 0.1 TH/MM3 (0-0.4); EOSINOPHIL % 0.8 % (0.0-4.0); HEMATOCRIT 44.4 % (39.0-51.0); LYMPH % 13.2 % (9.0-44.0); LYMPHOCYTE # 1.5 TH/MM3 (1.0-4.8); MEAN CELL VOLUME 96.4 FL (80.0-100.0); MEAN CORPUSCULAR HEMOGLOBIN 32.7 PG (27.0-34.0); MEAN CORPUSCULAR HGB CONC 33.9 % (32.0-36.0); MEAN PLATELET VOLUME 9.6 FL (7.0-11.0); MONO % 5.2 % (0.0-8.0); MONOCYTE # 0.6 TH/MM3 (0-0.9); NEUT % 80.5 % (16.0-70.0); PLATELET COUNT 192 TH/MM3 (150-450); RED CELL DISTRIBUTION WIDTH 14.3 % (11.6-17.2); WHITE BLOOD COUNT 11.7 TH/MM3 (4.0-11.0)
[2017-04-09 12:16] LABS: BILIRUBIN, URINE NEG (NEG); BLOOD, URINE TRACE (NEG); GLUCOSE,URINE NEG (NEG); HYALINE CAST, URINE 9 /lpf (RARE); KETONE, URINE NEG (NEG); MUCUS URINE FEW /lpf (OCC); NITRITE,URINE NEG (NEG); PH, URINE 5.5 (5.0-8.5); SQUAMOUS EPITHELIAL CELL URINE <1 /hpf (0-5); URINE COLOR YELLOW (YELLW/STRAW); URINE LEUKOCYTE ESTERASE NEG (NEG)
--- NOTE | 2017-04-09 12:23 | PD ---
HPI Chief Complaint: Altered Mental Status Time Seen by Provider: 11:30 Travel History International Travel<30 days: No Contact w/Intl Traveler<30days: No Traveled to known affect area: No History of Present Illness HPI 61-year-old male brought in by EMS with altered mental status. Patient was found in his recliner with vomitus all over himself, with question of overdose of medications. Patient has a psych history currently on Zyprexa, trazodone, Lortab, and alprazolam. Patient is able to answer questions including the day, and month. Otherwise he does not really recall what happened. He states he may have taken too many pills but denies intentional overdose. Patient's answers are unreliable. Patient has generalized dystonia, but no obvious hemiplegia. Patient was last seen normal yesterday where he went shopping with family members. He complains of right-sided pain but is nonspecific. He has no known drug allergies. PFSH Past Medical History Medical History: Unable to Obtain Arthritis: Yes Asthma: No Autoimmune Disease: No Bipolar Disorder: Yes Anxiety: Yes Depression: Yes Heart Rhythm Problems: No Cancer: Yes (PROSTATE) Cardiac Catheterization: Yes Cardiovascular Problems: Yes High Cholesterol: No Chemotherapy: No Chest Pain: No Congestive Heart Failure: No COPD: Yes Cerebrovascular Accident: No Diabetes: No Diminished Hearing: No Diverticulitis: Yes Endocrine: No Gastrointestinal Disorders: Yes GERD: Yes Genitourinary: Yes Hiatal Hernia: No Hypertension: Yes Immune Disorder: No Kidney Stones: No Musculoskeletal: Yes (arthritis) Neurologic: No Psychiatric: Yes Reproductive: No Respiratory: Yes (COPD) Migraines: No Radiation Therapy: No Renal Failure: Yes Seizures: No Sickle Cell Disease: No Sleep Apnea: Yes Thyroid Disease: No Ulcer: Yes Past Surgical History AICD: No Arteriovenous Shunt: No Cardiac Surgery: No Cholecystectomy: Yes Ear Surgery: No Endocrine Surgery: No Eye Surgery: No Genitourinary Surgery: Yes (prostate removal 2009) Gynecologic Surgery: No Insulin Pump: No Joint Replacement: No Oral Surgery: Yes (tooth extractions) Pacemaker: No Prostatectomy: Yes Thoracic Surgery: No Other Surgery: Yes (NECK/BACK SURGERY) Social History Alcohol Use: Yes Tobacco Use: Yes (/2 PPD) Substance Use: Yes (CRACK/COCAINE) Allergies-Medications (Allergen,Severity, Reaction): Coded Allergies: No Known Allergies (Verified , 08/08/16) Reported Meds & Prescriptions Reported Meds & Active Scripts Active Hydrocodone-Acetaminophen 5-325 mg Tab 1 Tab PO Q4H PRN Reported Lexapro (Escitalopram Oxalate) 5 Mg Tab 5 Mg PO DAILY Klonopin (Clonazepam) 0.5 Mg Tab 0.5 Mg PO HS Lamictal (Lamotrigine) 100 Mg Tab 100 Mg PO DAILY Norvasc (Amlodipine Besylate) 10 Mg Tab 10 Mg PO DAILY Review of Systems ROS Limitations: Clinical Condition, Altered Mental Status, Poor Historian General / Constitutional: No: Fever Eyes: No: Visual changes HENT: No: Headaches Cardiovascular: No: Chest Pain or Discomfort Respiratory: No: Shortness of Breath Gastrointestinal: No: Abdominal Pain Genitourinary: No: Dysuria Musculoskeletal: No: Pain Skin: No Rash Neurologic: No: Weakness Psychiatric: No: Depression Endocrine: No: Polydipsia Hematologic/Lymphatic: No: Easy Bruising Physical Exam Exam Limitations: Clinical Condition, Altered Mental Status, Poor Historian Narrative GENERAL: Patient is somewhat obtunded but responsive with one word answers to questions. Unreliable historian. SKIN: Warm and dry. No diaphoresis. Normal color. HEAD: Atraumatic. Normocephalic. EYES: Pupils equal and appear pinpoint. No scleral icterus. No injection or drainage. Ocular motions are normal bilaterally. ENT: No nasal bleeding or discharge. Mucous membranes pink and moist. Pharynx is clear. Airway is patent. NECK: Trachea midline. Nontender with palpation. No bony step-off. Appears supple. CARDIOVASCULAR: Regular rate and rhythm. No murmurs gallops or rubs. RESPIRATORY: No accessory muscle use. Clear to auscultation. Breath sounds equal bilaterally. GASTROINTESTINAL: Abdomen soft, mild nonspecific tenderness with palpation, nondistended. Hepatic and splenic margins not palpable. MUSCULOSKELETAL: Extremities without clubbing, cyanosis, or edema. No obvious deformities. NEUROLOGICAL: Awake and alert. No obvious cranial nerve deficits. Motor grossly within normal limits. Five out of 4/5 muscle strength in the arms and legs. PSYCHIATRIC: Unable to evaluate due to patient condition. Data Data Last Documented VS Vital Signs Date Time Temp Pulse Resp B/P (MAP) Pulse Ox O2 Delivery O2 Flow Rate FiO2 04/09/17 11:10 97.6 58 15 144/70 (94) 98 Room Air Orders Orders Electrocardiogram (04/09/17 11:35) Ammonia (04/09/17 11:35) Complete Blood Count With Diff (04/09/17 11:35) Comprehensive Metabolic Panel (04/09/17 11:35) Creatine Kinase (Cpk) (04/09/17 11:35) Prothrombin Time / Inr (Pt) (04/09/17 11:35) Act Partial Throm Time (Ptt) (04/09/17 11:35) Urinalysis - C+S If Indicated (04/09/17 11:35) Lactic Acid Sepsis Protocol (04/09/17 11:35) Chest, Single Ap (04/09/17 11:35) Ct Brain W/O Iv Contrast(Rout) (04/09/17 11:35) Blood Glucose (04/09/17 11:35) Ecg Monitoring (04/09/17 11:35) Iv Access Insert/Monitor (04/09/17 11:35) Cath For Specimen (04/09/17 11:35) Oximetry (04/09/17 11:35) Naloxone Inj (Narcan Inj) (04/09/17 11:45) Sodium Chloride 0.9% Flush (Ns Flush) (04/09/17 11:45) Sodium Chlor 0.9% 1000 Ml Inj (Ns 1000 M (04/09/17 11:35) Drug Screen, Random Urine (04/09/17 11:35) Alcohol (Ethanol) (04/09/17 11:35) Tylenol (Acetaminophen) (04/09/17 11:35) Salicylates (Aspirin) (04/09/17 11:35) Osmolality,Serum (04/09/17 11:35) Naloxone Inj (Narcan Inj) (04/09/17 11:45) Vascular Access Team Consult/P PRN (04/09/17 12:17) Vascular Poc Ultrasound (04/09/17 ) Psych Screen (04/09/17 12:49) Admit Order (Ed Use Only) (04/09/17 13:36) Labs Laboratory Tests Test 04/09/17 11:40 04/09/17 11:52 White Blood Count 11.7 TH/MM3 Red Blood Count 4.60 MIL/MM3 Hemoglobin 15.0 GM/DL Hematocrit 44.4 % Mean Corpuscular Volume 96.4 FL Mean Corpuscular Hemoglobin 32.7 PG Mean Corpuscular Hemoglobin Concent 33.9 % Red Cell Distribution Width 14.3 % Platelet Count 192 TH/MM3 Mean Platelet Volume 9.6 FL Neutrophils (%) (Auto) 80.5 % Lymphocytes (%) (Auto) 13.2 % Monocytes (%) (Auto) 5.2 % Eosinophils (%) (Auto) 0.8 % Basophils (%) (Auto) 0.3 % Neutrophils # (Auto) 9.4 TH/MM3 Lymphocytes # (Auto) 1.5 TH/MM3 Monocytes # (Auto) 0.6 TH/MM3 Eosinophils # (Auto) 0.1 TH/MM3 Basophils # (Auto) 0.0 TH/MM3 CBC Comment DIFF FINAL Differential Comment Prothrombin Time 10.0 SEC Prothromb Time International Ratio 1.0 RATIO Activated Partial Thromboplast Time 26.8 SEC Blood Urea Nitrogen 12 MG/DL Creatinine 1.58 MG/DL Random Glucose 102 MG/DL Total Protein 7.8 GM/DL Albumin 3.6 GM/DL Calcium Level 9.2 MG/DL Alkaline Phosphatase 102 U/L Aspartate Amino Transf (AST/SGOT) 75 U/L Alanine Aminotransferase (ALT/SGPT) 108 U/L Total Bilirubin 0.4 MG/DL Sodium Level 138 MEQ/L Potassium Level 4.3 MEQ/L Chloride Level 103 MEQ/L Carbon Dioxide Level 26.9 MEQ/L Anion Gap 8 MEQ/L Estimat Glomerular Filtration Rate 45 ML/MIN Serum Osmolality 301 MOSM/KG Total Creatine Kinase 151 U/L Salicylates Level 3.4 MG/DL Acetaminophen Level LESS THAN 2.0 MCG/ML Ethyl Alcohol Level LESS THAN 3 MG/DL Urine Color YELLOW Urine Turbidity CLEAR Urine pH 5.5 Urine Specific [place] 1.009 Urine Protein NEG mg/dL Urine Glucose (UA) NEG mg/dL Urine Ketones NEG mg/dL Urine Occult Blood TRACE Urine Nitrite NEG Urine Bilirubin NEG Urine Urobilinogen LESS THAN 2.0 MG/DL Urine Leukocyte Esterase NEG Urine RBC 1 /hpf Urine WBC 1 /hpf Urine Squamous Epithelial Cells <1 /hpf Urine Hyaline Casts 9 /lpf Urine Mucus FEW /lpf Microscopic Urinalysis Comment CATH-CULT NOT IND Urine Opiates Screen NEG Urine Barbiturates Screen NEG Urine Amphetamines Screen NEG Urine Benzodiazepines Screen POS Urine Cocaine Screen POS Urine Cannabinoids Screen NEG MDM Medical Decision Making Medical Screen Exam Complete: Yes Emergency Medical Condition: Yes Medical Record Reviewed: Yes Differential Diagnosis Psychiatric symptoms. Medication overdose. Alcohol abuse. Possible overdose. Narrative Course Patient appears medically stable at time of exam. Chest x-ray and EKG are ordered. Labs ordered including CBC, CMP, coagulation studies, ammonia level, CPK, urine drug screen, serum osmolality, Tylenol and salicylate level, Urinalysis, IV access is obtained patient is given 4 mg naloxone IV as well as 1000 mL normal saline bolus. EKG shows sinus bradycardia without significant ST-T changes. This is reviewed with Dr. Mendosa. Chest x-ray shows Head CT is unremarkable for acute process per radiologist. Poison control was contacted who recommended supportive care and psychiatric evaluation. Psychiatric orders placed. Labs show CBC with slight leukocytosis of 11.7. Coagulation studies are normal. Chemistries show creatinine which is elevated 1.58, GFR is 45 this is increased from previous creatinine of 0.93 in December 2016. Serum osmolality is 301, AST 75, ALT is 108. Urine tox screen is positive for benzodiazepines as well as cocaine. Salicylate is 3.4, acetaminophen is less than 2.0. Serum Alcohol is less than 3. Urinalysis is otherwise unremarkable. Patient is discussed with Dr. Mendosa who recommends the patient be admitted for observation psychiatric. Call was placed to hospitalist patient is discussed with Dr. Patterson. Diagnosis Primary Impression: Polysubstance abuse Additional Impressions: Acute renal failure syndrome Substance induced mood disorder Admitting Information Admitting Physician Requests: Observation Condition: Stable Jose Antonio Greenfield Apr 09, 2017 12:23
[2017-04-09 12:37] LABS: ALBUMIN 3.6 GM/DL (3.4-5.0); ALT (GPT) 108 U/L (12-78); AST (GOT) 75 U/L (15-37); BICARBONATE 26.9 MEQ/L (21.0-32.0); BLOOD UREA NITROGEN 12 MG/DL (7-18); CALCIUM 9.2 MG/DL (8.5-10.1); CHLORIDE 103 MEQ/L (98-107); CREATININE 1.58 MG/DL (0.60-1.30); GLOMERULAR FILTRATION RATE 45 ML/MIN (>89); GLUCOSE,RANDOM 102 MG/DL (74-106); SODIUM (NA) 138 MEQ/L (136-145)
--- NOTE | 2017-04-09 12:38 | RADRPT ---
EXAM DATE/TIME: 04/09/2017 12:20 [facility] COMPARISON: CHEST SINGLE AP, August 11, 2016, 19:14. INDICATIONS : Syncope and short of breath. MEDICAL HISTORY : Hypertension. Cardiovascular disease Carcinoma, prostate.COPD , renal failure. SURGICAL HISTORY : None. ENCOUNTER: Initial ACUITY: 1 day PAIN SCORE: 0/10 LOCATION: Bilateral chest FINDINGS: A single view of the chest demonstrates the lungs to be symmetrically aerated without evidence of mas s, infiltrate or effusion. The cardiomediastinal contours are unremarkable. Osseous structures are intact. CONCLUSION: No acute disease. No significant change has occurred. Jun Gibson MD on April 09, 2017 at 12:36 Board Certified Radiologist. This report was verified electronically.
[2017-04-09 12:40] LABS: ALKALINE PHOSPHATASE 102 U/L (45-117); TOTAL BILIRUBIN ADULT 0.4 MG/DL (0.2-1.0); TOTAL PROTEIN 7.8 GM/DL (6.4-8.2)
[2017-04-09 12:45] LABS: ACETAMINOPHEN LESS THAN 2.0 MCG/ML (10.0-30.0)
[2017-04-09] MEDS: SODIUM CHLOR 0.9% 1000 ML INJ 1,000 ML IV SCH (14:00)
--- NOTE | 2017-04-09 14:01 | HHI.HP ---
[facility] Lei Cochran, DO Admission Diagnosis Acute renal Failure/Psych Diagnoses: (1) Acute kidney injury Diagnosis: Principal Chief Complaint: ' I don't remember what haapened'. Travel History International Travel<30 Days: No Contact w/Intl Traveler <30 Da: No Traveled to Known Affected Are: No History of Present Illness patient is a 61 y/o male with history of bipolar disorder , hepatitis C and hypertension who was brought to ER with altered mental status. Patient was found in his recliner with vomitus all over himself, with question of overdose of medications. he says that he might've taken ' too many pills' but he denies any suicidal thoughts and intentional overdose. at the time of my evaluation he was resting comfortably with no distress. he was awake, alert, oriented to person, place and partly to time. he says that his nausea has improved. he denies any chest pain or abdominal pain. he admits to using cocaine and heroine yesterday. Review of Systems Constitutional: DENIES: Fever, Weight loss, Chills, Night Sweats Eyes: DENIES: Blurred vision, Diplopia, Vision loss, Double Vision Ears, nose, mouth, throat: DENIES: Tinnitus, Vertigo, Throat pain, Epistaxis Respiratory: DENIES: Apneas, Cough, Snoring, Wheezing, Hemoptysis, Sputum production, Shortness of breath Cardiovascular: DENIES: Chest pain, Palpitations, Syncope, Dyspnea on Exertion , PND, Lower Extremity Edema, Orthopnea, Claudication Gastrointestinal: COMPLAINS OF: Nausea, DENIES: Abdominal pain, Black stools, Bloody stools, Constipation, Diarrhea, Vomiting, Difficulty Swallowing, Anorexia Genitourinary: DENIES: Urinary frequency, Urgency, Hematuria, Dysuria Musculoskeletal: DENIES: Joint pain, Muscle aches, Stiffness, Joint Swelling Integumentary: DENIES: Rash Neurologic: DENIES: Abnormal gait, Headache, Localized weakness, Paresthesias, Seizures, Speech Problems, Tremor, Poor Balance Psychiatric: COMPLAINS OF: Confusion, DENIES: Anxiety, Mood changes, Depression , Hallucinations, Agitation, Suicidal Ideation, Homicidal Ideation, Delusions Past Family Social History Past Medical History bipolar disorder hypertension hepatitis C prostate cancer Past Surgical History prostate surgery. Reported Medications Lexapro (Escitalopram Oxalate) 5 Mg Tab 5 Mg PO DAILY Klonopin (Clonazepam) 0.5 Mg Tab 0.5 Mg PO HS Lamictal (Lamotrigine) 100 Mg Tab 100 Mg PO DAILY Norvasc (Amlodipine Besylate) 10 Mg Tab 10 Mg PO DAILY Allergies: Coded Allergies: No Known Allergies (Verified , 08/08/16) Active Ordered Medications Inpatient Medications Naloxone HCl (Narcan Inj) 0.4 mg UNSCH X1 PRN IV PUSH RESP DEPRESSION OR HYPOTENSION Last administered on 04/09/17 11:58; Start 04/09/17 at 11:45 Sodium Chloride 1,000 ml @ 1,000 mls/hr Q1H IV Last administered on 11:57; Start 04/09/17 at 11:35; Stop 04/09/17 at 12:34; Status DC Sodium Chloride (NS Flush) 2 ml UNSCH PRN IV FLUSH FLUSH AFTER USING IV ACCESS ; Start 04/09/17 at 11:45 Family History not relevant to this admission. Social History smokes half a pack a day- uses cocaine and heroin- doesn't drink. Physical Exam Vital Signs Vital Signs Date Time Temp Pulse Resp B/P (MAP) Pulse Ox O2 Delivery O2 Flow Rate FiO2 04/09/17 11:10 97.6 58 15 144/70 (94) 98 Room Air Physical Exam GENERAL: This is a well-nourished, well-developed patient, in no apparent distress. SKIN: No rashes, ecchymoses or lesions. Cool and dry. HEAD: Atraumatic. Normocephalic. No temporal or scalp tenderness. EYES: Pupils equal round and reactive. Extraocular motions intact. No scleral icterus. No injection or drainage. ENT: Nose without bleeding, purulent drainage or septal hematoma. Throat without erythema, tonsillar hypertrophy or exudate. Uvula midline. Airway patent. NECK: Trachea midline. No JVD or lymphadenopathy. Supple, nontender, no meningeal signs. CARDIOVASCULAR: Regular rate and rhythm without murmurs, gallops, or rubs. RESPIRATORY: Clear to auscultation. Breath sounds equal bilaterally. No wheezes , rales, or rhonchi. GASTROINTESTINAL: Abdomen soft, non-tender, nondistended. No hepato-splenomegaly , or palpable masses. No guarding. MUSCULOSKELETAL: Extremities without clubbing, cyanosis, or edema. No joint tenderness, effusion, or edema noted. No calf tenderness. Negative Homans sign bilaterally. NEUROLOGICAL: Awake and alert. Cranial nerves II through XII intact. Motor and sensory grossly within normal limits. Five out of 5 muscle strength in all muscle groups. Laboratory Laboratory Tests Test 04/09/17 11:40 04/09/17 11:52 White Blood Count 11.7 Red Blood Count 4.60 Hemoglobin 15.0 Hematocrit 44.4 Mean Corpuscular Volume 96.4 Mean Corpuscular Hemoglobin 32.7 Mean Corpuscular Hemoglobin Concent 33.9 Red Cell Distribution Width 14.3 Platelet Count 192 Mean Platelet Volume 9.6 Neutrophils (%) (Auto) 80.5 Lymphocytes (%) (Auto) 13.2 Monocytes (%) (Auto) 5.2 Eosinophils (%) (Auto) 0.8 Basophils (%) (Auto) 0.3 Neutrophils # (Auto) 9.4 Lymphocytes # (Auto) 1.5 Monocytes # (Auto) 0.6 Eosinophils # (Auto) 0.1 Basophils # (Auto) 0.0 CBC Comment DIFF FINAL Differential Comment Prothrombin Time 10.0 Prothromb Time International Ratio 1.0 Activated Partial Thromboplast Time 26.8 Blood Urea Nitrogen 12 Creatinine 1.58 Random Glucose 102 Total Protein 7.8 Albumin 3.6 Calcium Level 9.2 Alkaline Phosphatase 102 Aspartate Amino Transf (AST/SGOT) 75 Alanine Aminotransferase (ALT/SGPT) 108 Total Bilirubin 0.4 Sodium Level 138 Potassium Level 4.3 Chloride Level 103 Carbon Dioxide Level 26.9 Anion Gap 8 Estimat Glomerular Filtration Rate 45 Serum Osmolality 301 Total Creatine Kinase 151 Salicylates Level 3.4 Acetaminophen Level LESS THAN 2.0 Ethyl Alcohol Level LESS THAN 3 Urine Color YELLOW Urine Turbidity CLEAR Urine pH 5.5 Urine Specific [place] 1.009 Urine Protein NEG Urine Glucose (UA) NEG Urine Ketones NEG Urine Occult Blood TRACE Urine Nitrite NEG Urine Bilirubin NEG Urine Urobilinogen LESS THAN 2.0 Urine Leukocyte Esterase NEG Urine RBC 1 Urine WBC 1 Urine Squamous Epithelial Cells <1 Urine Hyaline Casts 9 Urine Mucus FEW Microscopic Urinalysis Comment CATH-CULT NOT IND Urine Opiates Screen NEG Urine Barbiturates Screen NEG Urine Amphetamines Screen NEG Urine Benzodiazepines Screen POS Urine Cocaine Screen POS Urine Cannabinoids Screen NEG Result Diagram: 04/09/17 1140 04/09/17 1140 Imaging Last Impressions Head CT 04/09/17 1135 Signed Impressions: Service Date/Time: Sunday, April 09, 2017 11:58 - CONCLUSION: 1. No acute intracranial abnormalities. Jun Gibson MD Chest X-Ray 04/09/17 1135 Signed Impressions: Service Date/Time: Sunday, April 09, 2017 12:20 - CONCLUSION: No acute disease. No significant change has occurred. Jun Gibson MD EKG; sinus bradycardia Caprini VTE Risk Assessment Caprini VTE Risk Assessment: Mod/High Risk (score >= 2) Caprini Risk Assessment Model Point Value = 1 Point Value = 2 Point Value = 3 Point Value = 5 Age 41-60 Minor surgery BMI > 25 kg/m2 Swollen legs Varicose veins or History of unexplained or recurrent spontaneous Oral contraceptives or hormone replacement Sepsis (< 1 month) Serious lung disease, including pneumonia (< 1 month) Abnormal pulmonary function Acute myocardial infarction Congestive heart failure (< 1 month) History of inflammatory bowel disease Medical patient at bed rest Age 61-74 Arthroscopic surgery Major open surgery (> 45 min) Laparoscopic surgery (> 45 min) Malignancy Confined to bed (> 72 hours) Immobilizing plaster cast Central venous access Age >= 75 History of VTE Family history of VTE Factor V Leiden Prothrombin [id number] Lupus anticoagulant Anticardiolipin antibodies Elevated serum homocysteine Heparin-induced thrombocytopenia Other congenital or acquired thrombophilia Stroke (< 1 month) Elective arthroplasty Hip, pelvis, or leg fracture Acute spinal cord injury (< 1 month) Prophylaxis Regimen Total Risk Factor Score Risk Level Prophylaxis Regimen 0-1 Low Early ambulation 2 Moderate Order ONE of the following: *Sequential Compression Device (SCD) *Heparin 5000 units SQ BID 3-4 Higher Order ONE of the following medications: *Heparin 5000 units SQ TID *Enoxaparin/Lovenox 40 mg SQ daily (WT < 150 kg, CrCl > 30 mL/min) *Enoxaparin/Lovenox 30 mg SQ daily (WT < 150 kg, CrCl > 10-29 mL/min) *Enoxaparin/Lovenox 30 mg SQ BID (WT < 150 kg, CrCl > 30 mL/min) AND/OR *Sequential Compression Device (SCD) 5 or more Highest Order ONE of the following medications: *Heparin 5000 units SQ TID (Preferred with Epidurals) *Enoxaparin/Lovenox 40 mg SQ daily (WT < 150 kg, CrCl > 30 mL/min) *Enoxaparin/Lovenox 30 mg SQ daily (WT < 150 kg, CrCl > 10-29 mL/min) *Enoxaparin/Lovenox 30 mg SQ BID (WT < 150 kg, CrCl > 30 mL/min) AND *Sequential Compression Device (SCD) Assessment and Plan Assessment and Plan A/P - acute encephalopathy- suspect drug overdose with history of bipolar disorder - seems to be improving. CT head with no acute abnormality. continue with supportive care; neurochecks, IV fluid- hold psych meds for now - will monitor- psych consulted- poison control contacted by ER. -acute kidney injury; start on IV fluid- will monitor the renal function- -hypertension; resume norvasc- will monitor and adjust the regimen as needed. -elevated LFT's due to hepatitis C- chronic- f/u as outpatient -polysubstance abuse; counselled on cessation. -DVT prophylaxis with subq Lovenox Discussed Condition With ER and the patient. Magnus Castillo MD Apr 09, 2017 14:01
--- NOTE | 2017-04-09 14:06 | PD ---
Data Data Last Documented VS Vital Signs Date Time Temp Pulse Resp B/P (MAP) Pulse Ox O2 Delivery O2 Flow Rate FiO2 04/09/17 11:10 97.6 58 15 144/70 (94) 98 Room Air Orders Orders Electrocardiogram (04/09/17 11:35) Ammonia (04/09/17 11:35) Complete Blood Count With Diff (04/09/17 11:35) Comprehensive Metabolic Panel (04/09/17 11:35) Creatine Kinase (Cpk) (04/09/17 11:35) Prothrombin Time / Inr (Pt) (04/09/17 11:35) Act Partial Throm Time (Ptt) (04/09/17 11:35) Urinalysis - C+S If Indicated (04/09/17 11:35) Lactic Acid Sepsis Protocol (04/09/17 11:35) Chest, Single Ap (04/09/17 11:35) Ct Brain W/O Iv Contrast(Rout) (04/09/17 11:35) Blood Glucose (04/09/17 11:35) Ecg Monitoring (04/09/17 11:35) Iv Access Insert/Monitor (04/09/17 11:35) Cath For Specimen (04/09/17 11:35) Oximetry (04/09/17 11:35) Naloxone Inj (Narcan Inj) (04/09/17 11:45) Sodium Chloride 0.9% Flush (Ns Flush) (04/09/17 11:45) Sodium Chlor 0.9% 1000 Ml Inj (Ns 1000 M (04/09/17 11:35) Drug Screen, Random Urine (04/09/17 11:35) Alcohol (Ethanol) (04/09/17 11:35) Tylenol (Acetaminophen) (04/09/17 11:35) Salicylates (Aspirin) (04/09/17 11:35) Osmolality,Serum (04/09/17 11:35) Naloxone Inj (Narcan Inj) (04/09/17 11:45) Vascular Access Team Consult/P PRN (04/09/17 12:17) Vascular Poc Ultrasound (04/09/17 ) Psych Screen (04/09/17 12:49) Admit Order (Ed Use Only) (04/09/17 13:36) Labs Laboratory Tests Test 04/09/17 11:40 04/09/17 11:52 White Blood Count 11.7 TH/MM3 Red Blood Count 4.60 MIL/MM3 Hemoglobin 15.0 GM/DL Hematocrit 44.4 % Mean Corpuscular Volume 96.4 FL Mean Corpuscular Hemoglobin 32.7 PG Mean Corpuscular Hemoglobin Concent 33.9 % Red Cell Distribution Width 14.3 % Platelet Count 192 TH/MM3 Mean Platelet Volume 9.6 FL Neutrophils (%) (Auto) 80.5 % Lymphocytes (%) (Auto) 13.2 % Monocytes (%) (Auto) 5.2 % Eosinophils (%) (Auto) 0.8 % Basophils (%) (Auto) 0.3 % Neutrophils # (Auto) 9.4 TH/MM3 Lymphocytes # (Auto) 1.5 TH/MM3 Monocytes # (Auto) 0.6 TH/MM3 Eosinophils # (Auto) 0.1 TH/MM3 Basophils # (Auto) 0.0 TH/MM3 CBC Comment DIFF FINAL Differential Comment Prothrombin Time 10.0 SEC Prothromb Time International Ratio 1.0 RATIO Activated Partial Thromboplast Time 26.8 SEC Blood Urea Nitrogen 12 MG/DL Creatinine 1.58 MG/DL Random Glucose 102 MG/DL Total Protein 7.8 GM/DL Albumin 3.6 GM/DL Calcium Level 9.2 MG/DL Alkaline Phosphatase 102 U/L Aspartate Amino Transf (AST/SGOT) 75 U/L Alanine Aminotransferase (ALT/SGPT) 108 U/L Total Bilirubin 0.4 MG/DL Sodium Level 138 MEQ/L Potassium Level 4.3 MEQ/L Chloride Level 103 MEQ/L Carbon Dioxide Level 26.9 MEQ/L Anion Gap 8 MEQ/L Estimat Glomerular Filtration Rate 45 ML/MIN Serum Osmolality 301 MOSM/KG Total Creatine Kinase 151 U/L Salicylates Level 3.4 MG/DL Acetaminophen Level LESS THAN 2.0 MCG/ML Ethyl Alcohol Level LESS THAN 3 MG/DL Urine Color YELLOW Urine Turbidity CLEAR Urine pH 5.5 Urine Specific [place] 1.009 Urine Protein NEG mg/dL Urine Glucose (UA) NEG mg/dL Urine Ketones NEG mg/dL Urine Occult Blood TRACE Urine Nitrite NEG Urine Bilirubin NEG Urine Urobilinogen LESS THAN 2.0 MG/DL Urine Leukocyte Esterase NEG Urine RBC 1 /hpf Urine WBC 1 /hpf Urine Squamous Epithelial Cells <1 /hpf Urine Hyaline Casts 9 /lpf Urine Mucus FEW /lpf Microscopic Urinalysis Comment CATH-CULT NOT IND Urine Opiates Screen NEG Urine Barbiturates Screen NEG Urine Amphetamines Screen NEG Urine Benzodiazepines Screen POS Urine Cocaine Screen POS Urine Cannabinoids Screen NEG MDM Supervised Visit with TITA: Yes Narrative Course The history, exam, and medical decision-making in the associated midlevel provider note were completed with my assistance. I reviewed and agree with the findings presented. I attest that I had a [id number] encounter with the patient on the same day, and personally performed and documented my assessment and findings in the medical record. *My assessment and Findings: This is a 61-year-old male who presents to the emergency department having been found by his family unresponsive in a chair covered in vomit. He is on multiple psychoactive medications. He was quite confused on arrival but was maintaining his airway and had normal vital signs. He became increasingly more clear in the emergency department. He has evidence of acute kidney injury on labs. Plan for IV hydration, and observation to ensure the patient improves with his mental status. He's had unintentional overdoses and misuse of his medications in the past. Diagnosis Primary Impression: Polysubstance abuse Additional Impressions: Acute renal failure syndrome Substance induced mood disorder Admitting Information Admitting Physician Requests: Observation Condition: Stable Connie Mendosa MD Apr 09, 2017 14:06
[2017-04-09 14:15] VITALS: BP 157/91; PULSE 75; RESP 16; O2SAT 97
[2017-04-09] MEDS ORDERED: HYDR-3366 PO ×2 (14:21)
[2017-04-09] MEDS ORDERED: OLAN10TA PO (14:21)
[2017-04-09] MEDS ORDERED: TRAZ1TAB14 PO (14:21)
[2017-04-09] MEDS ORDERED: ALPR2TAB3 PO (14:21)
[2017-04-09] MEDS ORDERED: ESCI10TA PO (14:21)
[2017-04-09 17:53] VITALS: BP 188/79; PULSE 62; RESP 20; TEMP 95.3; O2SAT 100
[2017-04-09] MEDS ORDERED: LORazepam 1 MG TAB PO PRN (18:15)
[2017-04-09] MEDS ORDERED: LORazepam 2 MG TAB PO ONE (20:00)
[2017-04-09 22:57] VITALS: BP 130/64; PULSE 98; RESP 18; TEMP 97.8; O2SAT 99
[2017-04-10] MEDS ORDERED: LORazepam 2 MG/ML VIAL IV PUSH PRN ×3 (00:15)
[2017-04-10] MEDS ORDERED: LORazepam 1 MG TAB PO PRN (00:15)
[2017-04-10] MEDS ORDERED: FLUMAZENIL 0.5 MG/5 ML VIAL IV PUSH PRN (00:15)
[2017-04-10] MEDS ORDERED: LORazepam 2 MG TAB PO PRN (00:15)
[2017-04-10] MEDS: ONDANSETRON HCL 4 MG/2 ML VIAL IV PUSH PRN ×2 (00:57→14:24)
[2017-04-10] MEDS: SODIUM CHLOR 0.9% 1000 ML INJ 1,000 ML IV SCH ×2 (00:57→11:23)
[2017-04-10] MEDS: LORazepam 2 MG/ML VIAL IV PUSH PRN ×2 (01:08→04:50)
[2017-04-10 01:12] VITALS: BP 169/75; PULSE 83; RESP 18; TEMP 98.1; O2SAT 98
[2017-04-10 05:06] VITALS: BP 181/92; PULSE 81; RESP 18; TEMP 97.9; O2SAT 100
[2017-04-10 07:53] VITALS: BP 149/78; RESP 20; TEMP 98.1; O2SAT 95
[2017-04-10] MEDS ORDERED: ENOXAPARIN SODIUM 40 MG/0.4 ML SYRINGE SQ SCH (09:00)
[2017-04-10] MEDS ORDERED: THIAMINE HCL 100 MG TAB PO SCH (09:00)
[2017-04-10] MEDS ORDERED: FOLIC ACID 1 MG TAB PO SCH (09:00)
[2017-04-10] MEDS ORDERED: MULTIVITAMINS/MINERALS THERAPEUTIC TAB PO SCH (09:00)
[2017-04-10 11:26] LABS: AUTOMATED NEUTROPHIL # 6.5 TH/MM3 (1.8-7.7); BASOPHIL % 0.5 % (0.0-2.0); EOSINOPHIL # 0.1 TH/MM3 (0-0.4); EOSINOPHIL % 0.9 % (0.0-4.0); HEMATOCRIT 39.4 % (39.0-51.0); HEMOGLOBIN 13.6 GM/DL (13.0-17.0); LYMPH % 25.1 % (9.0-44.0); LYMPHOCYTE # 2.4 TH/MM3 (1.0-4.8); MEAN CELL VOLUME 95.3 FL (80.0-100.0); MEAN CORPUSCULAR HEMOGLOBIN 32.9 PG (27.0-34.0); MEAN CORPUSCULAR HGB CONC 34.6 % (32.0-36.0); MEAN PLATELET VOLUME 9.8 FL (7.0-11.0); MONO % 6.2 % (0.0-8.0); MONOCYTE # 0.6 TH/MM3 (0-0.9); NEUT % 67.3 % (16.0-70.0); PLATELET COUNT 206 TH/MM3 (150-450); RED BLOOD COUNT 4.14 MIL/MM3 (4.50-5.90); RED CELL DISTRIBUTION WIDTH 13.9 % (11.6-17.2); WHITE BLOOD COUNT 9.6 TH/MM3 (4.0-11.0)
[2017-04-10 11:41] LABS: ALBUMIN 3.4 GM/DL (3.4-5.0); ALT (GPT) 88 U/L (12-78); AST (GOT) 42 U/L (15-37); BICARBONATE 29.6 MEQ/L (21.0-32.0); BLOOD UREA NITROGEN 13 MG/DL (7-18); CHLORIDE 105 MEQ/L (98-107); DIRECT BILIRUBIN ADULT 0.1 MG/DL (0.0-0.2); GLOMERULAR FILTRATION RATE 76 ML/MIN (>89); GLUCOSE,RANDOM 97 MG/DL (74-106); SODIUM (NA) 141 MEQ/L (136-145)
[2017-04-10 11:43] LABS: ALKALINE PHOSPHATASE 91 U/L (45-117); TOTAL BILIRUBIN ADULT 0.4 MG/DL (0.2-1.0)
--- NOTE | 2017-04-10 12:07 | HHI.PR ---
Subjective Remarks Follow-up for altered mental status. Patient's AA O 4. He is very anxious to go home. He has no complaints. Patient stated that he has not had any of his Xanax since March 31 and that' s almost all his medication. 2 days ago he has some tremors that resolved on its own. In his urine drug screen was positive for benzos. Patient admits to doing cocaine. Denied any suicidal or homicidal ideation. Denied psych medication except for xanax. Objective Vitals Vital Signs Date Time Temp Pulse Resp B/P (MAP) Pulse Ox O2 Delivery O2 Flow Rate FiO2 04/10/17 07:53 98.1 20 149/78 (101) 95 04/10/17 05:06 97.9 81 18 181/92 (121) 100 04/10/17 01:12 98.1 83 18 169/75 (106) 98 04/09/17 22:57 97.8 98 18 130/64 (86) 99 04/09/17 17:53 95.3 62 20 188/79 (115) 100 04/09/17 14:25 04/09/17 14:15 75 16 157/91 (113) 97 Room Air I/O 04/09/17 04/09/17 04/09/17 04/10/17 04/10/17 04/10/17 07:00 15:00 23:00 07:00 15:00 23:00 Intake Total 1000 ml Output Total 250 ml Balance 1000 ml -250 ml Intake IV Total 1000 ml Output Urine Total 250 ml # Voids 1 Result Diagram: 04/10/17 1045 04/10/17 1045 Objective Remarks GENERAL: in NAD SKIN: Warm and dry. CARDIOVASCULAR: Regular rate and rhythm without murmurs, gallops, or rubs. RESPIRATORY: Breath sounds equal bilaterally. No accessory muscle use. GASTROINTESTINAL: Abdomen soft, non-tender, nondistended. MUSCULOSKELETAL: No cyanosis, or edema. BACK: Nontender without obvious deformity. No CVA tenderness. Medications and IVs Current Medications Naloxone HCl (Narcan Inj) 2 mg ONCE ONCE IM ; Start 04/09/17 at 11:45; Stop 04/09/17 at 11:45; Status DC Sodium Chloride (NS Flush) 2 ml UNSCH PRN IV FLUSH FLUSH AFTER USING IV ACCESS Last administered on 04/10/17t 09:20; Start 04/09/17 at 11:45 Sodium Chloride 1,000 ml @ 1,000 mls/hr Q1H IV Last administered on 11:57; Start 04/09/17 at 11:35; Stop 04/09/17 at 12:34; Status DC Naloxone HCl (Narcan Inj) 0.4 mg UNSCH X1 PRN IV PUSH RESP DEPRESSION OR HYPOTENSION Last administered on 04/09/17 11:58; Start 04/09/17 at 11:45 Sodium Chloride 1,000 ml @ 100 mls/hr Q10H IV Last administered on 04/10/17 11:23; Start 04/09/17 at 14:00 Ondansetron HCl (Zofran Inj) 4 mg Q8HR PRN IV PUSH NAUSEA Last administered on 04/10/17 00:57; Start 04/09/17 at 14:00 Amlodipine Besylate (Norvasc) 10 mg DAILY PO Last administered on 04/10/17 09 :19; Start 04/10/17 at 09:00 Enoxaparin Sodium (Lovenox Inj) 40 mg Q24H SQ Last administered on 04/10/17 09:20; Start 04/10/17 at 09:00 Lorazepam (Ativan) 1 mg Q6HR PRN PO ANXIETY; Start 04/09/17 at 18:15 Lorazepam (Ativan) 2 mg ONCE ONCE PO Last administered on 04/09/17 20:09; Start 04/09/17 at 20:00; Stop 04/09/17 at 20:01; Status DC Folic Acid (Folate) 1 mg DAILY PO Last administered on 04/10/17 09:19; Start 04/10/17 at 09:00; Stop 04/15/17 at 08:59 Thiamine HCl (Vitamin B1) 100 mg DAILY PO Last administered on 04/10/17 09:19 ; Start 04/10/17 at 09:00 Multivitamins/ Minerals Therapeutic (Theragran M Tab) 1 tab DAILY PO Last administered on 04/10/17 09:19; Start 04/10/17 at 09:00; Stop 04/15/17 at 08 :59 Flumazenil (Romazicon Inj) 0.2 mg Q1M PRN IV PUSH SEE LABEL COMMENTS; Start at 00:15 Lorazepam (Ativan) 1 mg Q4H PRN PO CIWA 8 - 10 Last administered on 04/10/17t 09:20; Start 04/10/17 at 00:15 Lorazepam (Ativan Inj) 1 mg Q4H PRN IV PUSH CIWA 8 - 10; Start 04/10/17 at 00: 15 Lorazepam (Ativan) 2 mg Q2H PRN PO CIWA 11-14; Start 04/10/17 at 00:15 Lorazepam (Ativan Inj) 2 mg Q2H PRN IV PUSH CIWA 11-14; Start 04/10/17 at 00: 15 Lorazepam (Ativan Inj) 2 mg Q1H PRN IV PUSH CIWA 15-20 Last administered on t 04:50; Start 04/10/17 at 00:15 Lorazepam (Ativan Inj) 2 mg Q15M PRN IV PUSH CIWA > 20; Start 04/10/17 at 00: 15 A/P Problem List: (1) Acute kidney injury ICD Code: N17.9 - Acute kidney failure, unspecified Assessment and Plan This is a 62-year-old male presents altered mental status secondary to polysubstance abuse Metabolic encephalopathy -CT scan of the head with no acute abnormality. -Secondary to substance abuse. Patient positive for Xanax and cocaine. He denied benzos since March 31 but that is positive. -Resolved. -Recommend cocaine cessation. Also since patient has a propensity for substance abuse I would not recommend Xanax. -Psychiatrist was consulted. acute kidney injury -Due to dehydration from substance abuse. Resolved with IV fluids. hypertension -resume norvasc. elevated LFT's due to hepatitis C - chronic- f/u as outpatient polysubstance abuse -counselled on cessation. DVT prophylaxis with subq Lovenox Shira Haider MD Apr 10, 2017 12:07
[2017-04-10 12:13] VITALS: BP 145/69; PULSE 88; RESP 22; TEMP 97.9; O2SAT 97
--- NOTE | 2017-04-10 15:20 | EKG ---
Date Performed: 04/09/2017 Time Performed: 11:39:05 PTAGE: 61 years EKG: SINUS BRADYCARDIA BORDERLINE ECG PREVIOUS TRACING 08/08/2016 @ 13.37 Compared to prior tracing no significant change DOCTOR: Christopher Handley Interpretating Date/Time 04/10/2017 15:19:03
--- NOTE | 2017-04-10 15:31 | HHI.DCPOC ---
Discharge Care Plan Diagnosis: (1) Altered mental status (2) Polysubstance abuse (3) Acute kidney injury Goals to Promote Your Health * To prevent worsening of your condition and complications * To maintain your health at the optimal level Directions to Meet Your Goals Take your medications as prescribed Follow your dietary instruction Follow activity as directed Keep your appointments as scheduled Take your immunizations and boosters as scheduled If your symptoms worsen call your PCP, if no PCP go to Urgent Care Center or Emergency Room Smoking is Dangerous to Your Health. Avoid second hand smoke Call the 24-hour hour crisis hotline for domestic abuse at Shira Haider MD Apr 10, 2017 15:31
--- NOTE | 2017-04-10 15:35 | HHI.DS ---
Discharge Summary Admission Date Apr 09, 2017 at 13:38 Discharge Date: Apr 10, 2017 Admitting Diagnosis Acute renal Failure/Psych (1) Acute kidney injury ICD Code: N17.9 - Acute kidney failure, unspecified Diagnosis: Principal (2) Altered mental status ICD Code: R41.82 - Altered mental status, unspecified Diagnosis: Principal (3) Polysubstance abuse ICD Code: F19.10 - Polysubstance abuse Diagnosis: Principal Status: Chronic Procedures See hospital course. Brief History - From Admission patient is a 61 y/o male with history of bipolar disorder , hepatitis C and hypertension who was brought to ER with altered mental status. Patient was found in his recliner with vomitus all over himself, with question of overdose of medications. he says that he might've taken ' too many pills' but he denies any suicidal thoughts and intentional overdose. at the time of my evaluation he was resting comfortably with no distress. he was awake, alert, oriented to person, place and partly to time. he says that his nausea has improved. he denies any chest pain or abdominal pain. he admits to using cocaine and heroine yesterday. CBC/BMP: 04/10/17 1045 04/10/17 1045 Significant Findings Laboratory Tests Test 04/09/17 11:40 04/09/17 11:52 04/09/17 13:40 04/10/17 10:45 White Blood Count 11.7 TH/MM3 (4.0-11.0) Neutrophils (%) (Auto) 80.5 % (16.0-70.0) Neutrophils # (Auto) 9.4 TH/MM3 (1.8-7.7) Creatinine 1.58 MG/DL (0.60-1.30) Aspartate Amino Transf (AST/SGOT) 75 U/L (15-37) 42 U/L (15-37) Alanine Aminotransferase (ALT/SGPT) 108 U/L (12-78) 88 U/L (12-78) Estimat Glomerular Filtration Rate 45 ML/MIN (>89) 76 ML/MIN (>89) Serum Osmolality 301 MOSM/KG (275-295) Acetaminophen Level LESS THAN 2.0 MCG/ML Urine Occult Blood TRACE (NEG) Urine Mucus FEW /lpf (OCC) Urine Benzodiazepines Screen POS (NEG) Urine Cocaine Screen POS (NEG) Red Blood Count 4.14 MIL/MM3 (4.50-5.90) Imaging Last Impressions Head CT 04/09/17 1135 Signed Impressions: Service Date/Time: Sunday, April 09, 2017 11:58 - CONCLUSION: 1. No acute intracranial abnormalities. Jun Gibson MD Chest X-Ray 04/09/17 1135 Signed Impressions: Service Date/Time: Sunday, April 09, 2017 12:20 - CONCLUSION: No acute disease. No significant change has occurred. Jun Gibson MD PE at Discharge GENERAL: in NAD SKIN: Warm and dry. CARDIOVASCULAR: Regular rate and rhythm without murmurs, gallops, or rubs. RESPIRATORY: Breath sounds equal bilaterally. No accessory muscle use. GASTROINTESTINAL: Abdomen soft, non-tender, nondistended. MUSCULOSKELETAL: No cyanosis, or edema. BACK: Nontender without obvious deformity. No CVA tenderness. NEURO: No tremors noted. Pt update on day of discharge Update from patient's nurse that Dr. Mattson wants patient in inpatient psych. Hospital Course 61-year-old male with history of mood disorder, anxiety, and substance abuse who presented with altered mental status secondary to substance abuse. Labs were obtained was significant for mild renal insufficiency. Urine drug screen positive for cocaine and benzos. Patient received IV fluids in which his altered mental status improved quickly and he was back to baseline a day of discharge. Renal insufficiency also resolved with IV fluids. Patient was educated extensively about substance abuse. He stated that he understood. Psychiatrist was consulted to help manage his medication in which they recommend to inpatient psych once patient is medically clear. Pt Condition on Discharge: Stable Discharge Disposition: Disc to Psych Care Fac Discharge Time: > 30 minutes Discharge Instructions DIET: Follow Instructions for: Heart Healthy Diet Activities you can perform: Regular-No Restrictions Follow up Referrals: PCP Follow-up - 1 Week Continued Medications: Amlodipine (Norvasc) 10 Mg Tab 10 MG PO DAILY for Blood Pressure Management, TAB 0 Refills Discontinued Medications: Alprazolam (Alprazolam) 2 Mg Tab 2 MG PO Q6H PRN for ANXIETY, TAB Clonazepam (Klonopin) 0.5 Mg Tab 0.5 MG PO HS, TAB 0 Refills Escitalopram (Escitalopram) 10 Mg Tab 10 MG PO DAILY, #30 TAB 0 Refills Hydrocodone-Acetaminophen ([place]) 10-325 Mg Tab 1 TAB PO Q8HR PRN for PAIN, TAB 0 Refills Olanzapine (Olanzapine) 10 Mg Tab 10 MG PO DAILY, #30 TAB 0 Refills Trazodone (Trazodone) 150 Mg Tablet 150 MG PO HS for Control Depression, #30 TAB 0 Refills Shira Haider MD Apr 10, 2017 15:35
--- NOTE | 2017-04-11 09:41 | PD.PSY.CON ---
Provisional Diagnosis Admission Date Apr 09, 2017 at 13:38 Randall I. Bipolar depressed History of Present Illness Service Psychiatry Consult Requested By Attending physician Reason for Consult Overdose Primary Care Physician No Primary Care Physician HPI This is a late entry of a consult that was performed yesterday, 04/10/2017. Patient is a 61-year-old male with a history of multiple medical issues, found in a recliner chair, obtunded with vomitus on his chest. He has a poor recollection of how this happened but admits to marked symptoms of depression, lack of treatment for his bipolar disorder, and taking too many pills, either inadvertently or on purpose. Patient was also noted to be positive for cocaine and states he was self-medicating with this drug due to a lack of treatment for his bipolar depression. Depressive symptoms include depressed mood, anhedonia, loss of energy, suicidal thinking, anxiety, feelings of hopelessness and helplessness, low self-esteem, sleep disturbance, social withdrawal, and mental confusion. As noted in the attending physician note in the emergency department , the patient was not felt to be a credible historian, in part due to his altered mental status. At the time of this consult, however, the patient's mental status had markedly improved and his history of depression, lack of treatment, overtaking of his medications and cocaine use were verified with him. Review of Systems ROS Limitations: Clinical Condition Psychiatric: COMPLAINS OF: Depression Except as stated in HPI: all other systems reviewed are Neg Past Family Social History Coded Allergies: No Known Allergies (Verified , 08/08/16) Reported Medications Amlodipine (Norvasc) 10 Mg Tab, 10 MG PO DAILY for Blood Pressure Management, TAB 0 Refills 08/08/16 Discontinued Reported Medications Alprazolam (Alprazolam) 2 Mg Tab, 2 MG PO Q6H Y for ANXIETY, TAB 04/09/17 Escitalopram (Escitalopram) 10 Mg Tab, 10 MG PO DAILY, #30 TAB 0 Refills 04/09/17 Trazodone (Trazodone) 150 Mg Tablet, 150 MG PO HS for Control Depression, #30 TAB 0 Refills 04/09/17 Hydrocodone-Acetaminophen ([place]) 10-325 Mg Tab, 1 TAB PO Q8HR Y for PAIN, TAB 0 Refills 04/09/17 Olanzapine (Olanzapine) 10 Mg Tab, 10 MG PO DAILY, #30 TAB 0 Refills 04/09/17 Clonazepam (Klonopin) 0.5 Mg Tab, 0.5 MG PO HS, TAB 0 Refills 08/08/16 Hydrocodone-Acetaminophen ([place]) 10-325 Mg Tab, 1 TAB PO Q4H, TAB 0 Refills 04/09/17 Escitalopram (Lexapro) 5 Mg Tab, 5 MG PO DAILY, TAB 0 Refills 08/08/16 Lamotrigine (Lamictal) 100 Mg Tab, 100 MG PO DAILY for Control Seizures, TAB 0 Refills 08/08/16 Discontinued Scripts Hydrocodone-Acetaminophen (Hydrocodone-Acetaminophen) 5-325 mg Tab, 1 TAB PO Q4H Y for pain 1-5, #30 TAB Prov:Sam More MD 08/12/16 Family Psych History Patient does report a family history of mood disorders. Social History Patient does live with family members. He is unemployed. He has financial stress. He states he does not have a history of cocaine abuse and his cocaine use prior to this admission was the first time he did so. This physician notes the patient does have a history of alcohol abuse. Patient's Strengths (min. 2) Verbal and has access to healthcare. Physical Exam Vital Signs Vital Signs Date Time Temp Pulse Resp B/P (MAP) Pulse Ox O2 Delivery O2 Flow Rate FiO2 04/10/17 12:13 97.9 88 22 145/69 (94) 97 04/09/17 14:15 Room Air Lab Results Test 04/10/17 10:45 White Blood Count 9.6 TH/MM3 Red Blood Count 4.14 MIL/MM3 Hemoglobin 13.6 GM/DL Hematocrit 39.4 % Mean Corpuscular Volume 95.3 FL Mean Corpuscular Hemoglobin 32.9 PG Mean Corpuscular Hemoglobin Concent 34.6 % Red Cell Distribution Width 13.9 % Platelet Count 206 TH/MM3 Mean Platelet Volume 9.8 FL Neutrophils (%) (Auto) 67.3 % Lymphocytes (%) (Auto) 25.1 % Monocytes (%) (Auto) 6.2 % Eosinophils (%) (Auto) 0.9 % Basophils (%) (Auto) 0.5 % Neutrophils # (Auto) 6.5 TH/MM3 Lymphocytes # (Auto) 2.4 TH/MM3 Monocytes # (Auto) 0.6 TH/MM3 Eosinophils # (Auto) 0.1 TH/MM3 Basophils # (Auto) 0.0 TH/MM3 CBC Comment DIFF FINAL Differential Comment Blood Urea Nitrogen 13 MG/DL Creatinine 1.00 MG/DL Random Glucose 97 MG/DL Total Protein 7.0 GM/DL Albumin 3.4 GM/DL Calcium Level 9.0 MG/DL Alkaline Phosphatase 91 U/L Aspartate Amino Transf (AST/SGOT) 42 U/L Alanine Aminotransferase (ALT/SGPT) 88 U/L Total Bilirubin 0.4 MG/DL Direct Bilirubin 0.1 MG/DL Sodium Level 141 MEQ/L Potassium Level 3.9 MEQ/L Chloride Level 105 MEQ/L Carbon Dioxide Level 29.6 MEQ/L Anion Gap 6 MEQ/L Estimat Glomerular Filtration Rate 76 ML/MIN Mental Status Examination Appearance: Disheveled Consciousness: Alert Orientation: x4 Motor Activity: Abnormal gait Speech: Slow Language: Adequate Fund of Knowledge: Adequate Attention and Concentration: Easily Distracted Memory: Impaired Mood: Sad Affect: Sad Thought Process & Associations: Intact Thought Content: Appropriate Hallucination Type: None Delusion Type: None Suicidal Ideation: Yes Suicidal Plan: No Suicidal Intention: No Homicidal Ideation: No Homicidal Plan: No Homicidal Intention: No Insight: Fair Judgment: Impulsive Assessment & Plan Problem List: (1) Bipolar I disorder with depression, severe ICD Codes: F31.4 - Bipolar disorder, current episode depressed, severe, without psychotic features Assessment & Plan Estimated LOS: days. 61-year-old male with history of bipolar disorder, recently severely depressed with suicidal ideation and overdose of medication. Patient is felt to be at high risk for self-harm at this time. Whether he has overdosed on purpose or by accident, his mental status has been inadequate and fluctuating with associated memory and concentration problems, dangerous behavior, poor judgment and poor insight. Additionally, the patient has admitted to being noncompliant with his bipolar disorder medications and using cocaine to self medicate. This physician spoke with the patient's nurse regarding his mental status changes, which appear to be improving with hydration and medication. He apparently does not require a internal medicine admission though a hospitalist is being consulted. The patient is being admitted by this physician to the medical psychiatric unit on [address] for further evaluation and treatment. Mark Mattson MD Apr 11, 2017 09:41
== END 2017-04-10 16:48 | disposition home or self-care (01) ==
LOC: NEPC 10:57 → NEDA 13:38 → NEPFCDU 14:47
PROVIDERS: ADMIT Family Medicine; ATTEND Family Medicine
DX: T50.991A Poisoning by other drugs, medicaments and biological substances, accidental (unintentional), initial encounter (principal); R41.82 Altered mental status, unspecified; R55 Syncope and collapse; R06.02 Shortness of breath; E86.0 Dehydration; F19.94 Other psychoactive substance use, unspecified with psychoactive substance-induced mood disorder; F31.9 Bipolar disorder, unspecified; N17.9 Acute kidney failure, unspecified; R00.1 Bradycardia, unspecified; I10 Essential (primary) hypertension; J44.9 Chronic obstructive pulmonary disease, unspecified; M19.90 Unspecified osteoarthritis, unspecified site; B19.20 Unspecified viral hepatitis C without hepatic coma; G47.30 Sleep apnea, unspecified; F41.9 Anxiety disorder, unspecified; G24.9 Dystonia, unspecified; F17.200 Nicotine dependence, unspecified, uncomplicated; F14.90 Cocaine use, unspecified, uncomplicated; F11.90 Opioid use, unspecified, uncomplicated; Z79.899 Other long term (current) drug therapy; Z85.46 Personal history of malignant neoplasm of prostate; Y92.008 Other place in unspecified non-institutional (private) residence as the place of occurrence of the external cause
CPT/HCPCS: 70450; 71010; 80053; 80307; 81001; 82140; 82248; 82550; 82948; 83605; 83930; 85025; 85610; 85730; 93005; 96361; 96374; 96375; 96376; 99285; G0378; J1650; J2060; J2310; J2405; J7030; P9612; 88305

== ENCOUNTER 2017-04-10 16:54 | Inpatient (IN) | payer OTHER, MEDICAID, MEDICARE ==
[~2017-04-10] VITALS: Ht 160 cm; Wt 57.2 kg
[~2017-04-10 16:54] MED LIST changes: +ALPR2TAB3 PO; +ESCI10TA PO; +HYDR-3366 PO; -HYDR-3516 PO; -LAMO100 PO; -LEXA5TAB PO; +OLAN10TA PO; +TRAZ1TAB14 PO
[2017-04-10 18:00] VITALS: BP 148/102; PULSE 99; RESP 16; TEMP 98; O2SAT 99
[2017-04-10 18:36] VITALS: BP 146/75; PULSE 88; RESP 16; TEMP 98; O2SAT 99
[2017-04-10] MEDS ORDERED: ACETAMINOPHEN 325 MG TAB PO PRN (19:00)
[2017-04-10] MEDS ORDERED: MAGNESIUM HYDROXIDE SUSP 30 ML CUP PO PRN (19:00)
[2017-04-10] MEDS ORDERED: ALUMINUM/MAGNESIUM/SIMETH 30 ML CUP PO PRN (19:00)
[2017-04-10] MEDS ORDERED: LORazepam 1 MG TAB PO PRN (21:00)
[2017-04-10] MEDS ORDERED: LORazepam 2 MG/ML VIAL IV PUSH PRN ×4 (21:00)
[2017-04-10] MEDS ORDERED: FLUMAZENIL 0.5 MG/5 ML VIAL IV PUSH PRN (21:00)
[2017-04-10] MEDS ORDERED: LORazepam 2 MG TAB PO PRN (21:00)
[2017-04-11 05:43] VITALS: BP 131/78; PULSE 69; RESP 16; TEMP 98; O2SAT 99
[2017-04-11 08:07] LABS: BICARBONATE 26.4 MEQ/L (21.0-32.0); BLOOD UREA NITROGEN 11 MG/DL (7-18); CALCIUM 8.9 MG/DL (8.5-10.1); CHLORIDE 104 MEQ/L (98-107); CHOLESTEROL 150 MG/DL (120-200); CREATININE 0.96 MG/DL (0.60-1.30); GLOMERULAR FILTRATION RATE 79 ML/MIN (>89); GLUCOSE,RANDOM 86 MG/DL (74-106); SODIUM (NA) 137 MEQ/L (136-145); TRIGLYCERIDES 81 MG/DL (42-150)
[2017-04-11 08:09] LABS: HDL CHOLESTEROL 51.6 MG/DL (40.0-60.0); LDL CHOLESTEROL 82 MG/DL (0-99)
--- NOTE | 2017-04-11 09:50 | HHI.HP ---
Provisional Diagnosis Admission Date Apr 10, 2017 at 16:54 [place]. Adjustment disorder with mixed anxiety and depressed mood; polysubstance use disorder; unspecified anxiety disorder Certification of Person's Competence To Provide Express and Informed Consent I have personally examined Yahir Villeda , a person being served at [facility], [place] on, Apr 11, 2017 09:31. Express and informed consent means consent voluntarily given in writing, by a competent person, after sufficient explanation and disclosure of the subject matter involved to enable the person to make a knowing and willful decision without any element of force, fraud, deceit, duress, or other form of constraint or coercion. This person is 18 years of age or older, is not now known to be incompetent to consent to treatment with a guardian advocate, and does not have a health care surrogate or proxy currently making medical treatment decisions. I have found this person to be one of the following: [x] Competent to provide express and informed consent, as defined above, for voluntary admission to this facility and is competent to provide express and informed consent for treatment. He/she has the consistent capacity to make well reasoned, willful, and knowing decisions concerning his or her medical or mental health treatment. The person fully and consistently understands the purpose of the admission for examination/placement and is fully capable of personally exercising all rights assured [place] Incompetent to provide express and informed consent to voluntary admission, and this is incompetent to provide express and informed consent to treatment. The person must be transferred to involuntary status and a petition for a guardian advocate filed with the Circuit Court. [] Refusing to provide express and informed consent to voluntary admission but is competent to provide express and informed consent for treatment. The person must be discharged or transferred to involuntary status. Form shall be completed within 24 hours of a person's arrival at the receiving facility and filed in the clinical record of each person: 1. Admitted on a voluntary basis 2. Permitted to provide express and informed consent to his/her own treatment 3. Allowed to transfer from involuntary to voluntary status 4. Prior to permitting a person to consent to his or her own treatment after having been previously found incompetent to consent to treatment. History of Present Illness Capacity: Has Capacity HPI Patient is a 61-year-old man, single, domiciled alone, unemployed on disability benefits, with a past psychiatric history of depression and anxiety, polysubstance use disorder, 1 previous psychiatric hospitalizations, no prior suicide attempts or self at his behavior, with a substance use history significant for crack cocaine, heroin, benzodiazepines, with a past medical history of COPD, hepatitis C, GRED, chronic neck pain, who was seen in the ED on 04/09/17 for altered mental status which is brought in by EMS for possible unintentional overdose with his home medications and transferred to the inpatient psychiatry for further evaluation and management for adjustment of medications. Patient was found lying in hospital bed, cooperative. Patient states that he does not remember much prior to his admission was only told that he had been found sitting with vomitus on him and one-to-one was called by his niece or nephew who was his been visiting with him recently. Patient states that he has not had a Prior episode similar to this, denies any previous suicide attempt, denies having overdose intentionally, and states not remembering taking his medications that day. Patient reports that recent medications that he has been taking include trazodone 150 mg at night as well as Xanax 2 mg tablet 4 times a day which she reports last use about 11-12 days ago. She states that he had his medications lost had not taken them since that time ago. Patient mentions that he had been having difficulty with sleep, appetite energy and concentration, feeling depressed but denying feeling helpless hopeless, feelings of guilt or having any suicidal ideations. Patient states his current stressors include feeling that he cannot do what he was able to do before. Patient denies any perceptual disturbances or delusions at this time. Currently patient reports feeling "not too good". He mentions that he does not have an outpatient psychiatrist but is planning to find a primary care doctor that is within his insurance network. Patient reports that he has been getting his medications from [facility] (hospice). Family psychiatric history: Mother with depression, denies any known suicides in the family. Past psychiatric history: Previous psychiatric diagnoses of depression, anxiety , polysubstance use disorder (benzodiazepines, cocaine, heroin) 1 previous psychiatric hospitalization here [place] in 2011, no previous suicide attempt or self-injurious behavior. Patient has no current outpatient psychiatrist, last psychiatrist she had seen was Dr. Ordonez who he last saw in November but does not plan return back with him. Patient reports prior medication trials include Lexapro, clonazepam, Lamictal, Seroquel, Elavil, Pristiq, Zyprexa. Substance use history: Remote history of alcohol abuse but she last use was 4 months ago), opiate use: Last use was with IV heroin a couple of days ago but states that prior use to that occasion was years ago. Crack cocaine use once a month last use was 3 days ago usually about $20 worth. Patient denies buying benzodiazepines on the street. Previous rehabilitation programs, last being in [place] 6 years ago, previous detox 6 years ago in [place] as well. Past medical history: COPD, hep C, GERD, chronic back pain Allergies: NKDA Social history: single, no children, domiciled alone, currently has family visiting, unemployed on disability benefits, highest education is high school degree, Jew, no history no axis to firearms. No legal history. Substance Abuse History Drugs/Alcohol past 12 months Remote history of alcohol abuse but she last use was 4 months ago), opiate use: Last use was with IV heroin a couple of days ago but states that prior use to that occasion was years ago. Crack cocaine use once a month last use was 3 days ago usually about $20 worth. Patient denies buying benzodiazepines on the street. Previous rehabilitation programs, last being in [place] 6 years ago , previous detox 6 years ago in [place] as well. Past Family Social History Coded Allergies: No Known Allergies (Verified , 08/08/16) Reported Medications Amlodipine (Norvasc) 10 Mg Tab, 10 MG PO DAILY for Blood Pressure Management, TAB 0 Refills 08/08/16 Discontinued Reported Medications Alprazolam (Alprazolam) 2 Mg Tab, 2 MG PO Q6H Y for ANXIETY, TAB 04/09/17 Escitalopram (Escitalopram) 10 Mg Tab, 10 MG PO DAILY, #30 TAB 0 Refills 04/09/17 Trazodone (Trazodone) 150 Mg Tablet, 150 MG PO HS for Control Depression, #30 TAB 0 Refills 04/09/17 Hydrocodone-Acetaminophen (Decker) 10-325 Mg Tab, 1 TAB PO Q8HR Y for PAIN, TAB 0 Refills 04/09/17 Olanzapine (Olanzapine) 10 Mg Tab, 10 MG PO DAILY, #30 TAB 0 Refills 04/09/17 Clonazepam (Klonopin) 0.5 Mg Tab, 0.5 MG PO HS, TAB 0 Refills 08/08/16 Hydrocodone-Acetaminophen (Decker) 10-325 Mg Tab, 1 TAB PO Q4H, TAB 0 Refills 04/09/17 Escitalopram (Lexapro) 5 Mg Tab, 5 MG PO DAILY, TAB 0 Refills 08/08/16 Lamotrigine (Lamictal) 100 Mg Tab, 100 MG PO DAILY for Control Seizures, TAB 0 Refills 08/08/16 Discontinued Scripts Hydrocodone-Acetaminophen (Hydrocodone-Acetaminophen) 5-325 mg Tab, 1 TAB PO Q4H Y for pain 1-5, #30 TAB Prov:Sam More MD 08/12/16 Current Medications Medications (Trade) Dose Ordered Sig/Diamond Route Start Time Stop Time Status Last Admin (Norvasc) 10 mg DAILY PO 04/11/17 09:00 04/11/17 08:13 (Tylenol) 650 mg Q4H PRN PO 04/10/17 19:00 (Mag-Al Plus Susp Liq) 30 ml Q6H PRN PO 04/10/17 19:00 (Milk Of Magnesia Liq) 30 ml DAILY PRN PO 04/10/17 19:00 (Ativan) 1 mg Q4H PRN PO 04/10/17 21:00 (Ativan Inj) 1 mg Q4H PRN IV PUSH 04/10/17 21:00 (Ativan) 2 mg Q2H PRN PO 04/10/17 21:00 04/10/17 22:06 (Ativan Inj) 2 mg Q2H PRN IV PUSH 04/10/17 21:00 (Ativan Inj) 2 mg Q1H PRN IV PUSH 04/10/17 21:00 (Ativan Inj) 2 mg Q15M PRN IV PUSH 04/10/17 21:00 (Romazicon Inj) 0.2 mg Q1M PRN IV PUSH 04/10/17 21:00 (Zoloft) 50 mg DAILY PO 04/11/17 09:30 UNV (Atarax) 50 mg Q6H PRN PO 04/11/17 09:30 UNV (Desyrel) 100 mg HS PO 04/11/17 21:00 UNV Family Psych History Mother with history of depression, no suicides in the family known Social History single, no children, domiciled alone, currently has family visiting, unemployed on disability benefits, highest education is high school degree, Jew, no history no axis to firearms. No legal history. Patient's Strengths (min. 2) Verbal and communicative Physical Exam A physical examination was completed in the emergency room prior to transfer to the inpatient unit. Upon evaluation, patient is moving all 4 extremities, not noted to be in acute distress, no hand tremor noted, no signs of withdrawal or EPS. No abnormal motor movements noted, no psychomotor retardation or agitation noted. Vital Signs Vital Signs Date Time Temp Pulse Resp B/P (MAP) Pulse Ox O2 Delivery O2 Flow Rate FiO2 04/11/17 05:43 98.0 69 16 131/78 (95) 99 I/O 04/11/17 04/11/17 04/12/17 08:00 16:00 00:00 Intake Total 840 ml Balance 840 ml Lab Results Labs reviewed Test 04/11/17 07:28 Blood Urea Nitrogen 11 MG/DL Creatinine 0.96 MG/DL Random Glucose 86 MG/DL Calcium Level 8.9 MG/DL Sodium Level 137 MEQ/L Potassium Level 3.8 MEQ/L Chloride Level 104 MEQ/L Carbon Dioxide Level 26.4 MEQ/L Anion Gap 7 MEQ/L Estimat Glomerular Filtration Rate 79 ML/MIN Triglycerides Level 81 MG/DL Cholesterol Level 150 MG/DL LDL Cholesterol 82 MG/DL HDL Cholesterol 51.6 MG/DL Cholesterol/HDL Ratio 2.90 RATIO Mental Status Examination Appearance: Appropriate Consciousness: Alert Orientation: Person, Place, Date/Time Speech: Unremarkable Language: Adequate Fund of Knowledge: Inadequate Attention and Concentration: Adequate Memory: Impaired (surrounding events prior to his admission) Mood: Sad Affect: Sad Thought Process & Associations: Linear Thought Content: Appropriate Hallucination Type: None Delusion Type: None Suicidal Ideation: No Suicidal Plan: No Suicidal Intention: No Homicidal Ideation: No Homicidal Plan: No Homicidal Intention: No Insight: Poor Judgment: Impulsive Assessment & Plan Problem List: (1) Adjustment disorder with mixed anxiety and depressed mood ICD Codes: F43.23 - Adjustment disorder with mixed anxiety and depressed mood (2) Polysubstance abuse ICD Codes: F19.10 - Polysubstance abuse Status: Chronic Assessment & Plan Estimated LOS: 3-5 days. Patient is a 61-year-old man who carries a diagnosis of depression, anxiety, polysubstance use disorder, who was admitted voluntarily to the inpatient psychiatry unit after being cleared medically from a possible overdose at home for which she was noted to have altered mental status and brought in by EMS for the same in the context of recent cocaine and heroine use as well as patient stating that not remembering that he took his medications. Patient at this time denies having recent overdose being intentional, reporting no previous suicide attempts but is endorsing depressive symptoms, active substance use with no outpatient providers which she would benefit from adjustment of medications to address anxiety disorder, depression as well as to provide motivational interviewing for his current polysubstance use. Will start patient on sertraline 50 mg by mouth daily with upper titration as needed, hydroxyzine 50 mg by mouth every 6 hours when necessary moderate to severe anxiety, trazodone 100 mg by mouth at bedtime for sleep disturbance. Hospital's consult for management of medical issues as well as her pain management. Treatment team will appropriate adequate discharge plan to include outpatient providers for continuity of care upon discharge as well as possibility of patient engaging in rehabilitation program as well. Discharge planning in progress Discharge Planning Patient to return back to his residence was psychiatrically stable. Ousmane Amaral MD Apr 11, 2017 09:50
[2017-04-11] MEDS ORDERED: ONDANSETRON HCL 4 MG/2 ML VIAL IV PUSH PRN (10:00)
--- NOTE | 2017-04-11 10:17 | PD.CONS ---
HPI Service [facility] Consult Requested By Dr. Amaral of psychiatry Reason for Consult Medical management Primary Care Physician No Primary Care Physician Diagnoses: History of Present Illness Patient is a 61-year-old gentleman, who was recently discharged from inpatient observation, for altered mental status. Patient has past medical history of bipolar, hepatitis C, hypertension, polysubstance abuse with IV drug abuse, chronic neck pain, cocaine, and heroin abuse and benzodiazepine abuse we have been asked to see the patient regarding help with his medical management. Patient states that he normally takes Lortabs 10/325 one by mouth 4 times a day he states he previously had seen pain management. Could not totally specifically who gave him the Lortabs in the past Also has had some nausea. We'll make Zofran sublingual and IV available Review of Systems Constitutional: COMPLAINS OF: Fatigue, DENIES: Diaphoretic episodes, Fever, Weight gain, Weight loss, Chills, Dizziness, Change in appetite Endocrine: DENIES: Heat/cold intolerance, Polydipsia, Polyuria, Polyphagia Eyes: DENIES: Blurred vision, Diplopia, Eye inflammation, Eye pain, Vision loss , Photosensitivity Ears, nose, mouth, throat: DENIES: Tinnitus, Hearing loss, Vertigo, Nasal discharge, Oral lesions, Throat pain Respiratory: DENIES: Apneas, Cough, Snoring, Wheezing, Hemoptysis, Sputum production, Shortness of breath Cardiovascular: DENIES: Chest pain, Palpitations, Syncope, Dyspnea on Exertion , PND Gastrointestinal: COMPLAINS OF: Nausea, Vomiting, DENIES: Abdominal pain, Black stools, Bloody stools, Constipation, Diarrhea Genitourinary: DENIES: Sexual dysfunction, Urinary frequency Musculoskeletal: COMPLAINS OF: Joint pain, Back pain, Neck pain, DENIES: Muscle aches, Stiffness, Joint Swelling Integumentary: DENIES: Abnormal pigmentation, Nail changes, Pruritus Hematologic/lymphatic: DENIES: Bruising, Lymphadenopathy Immunologic/allergic: DENIES: Eczema, Urticaria Neurologic: DENIES: Abnormal gait, Headache, Localized weakness, Paresthesias, Seizures, Speech Problems, Tremor Psychiatric: COMPLAINS OF: Anxiety, Confusion, Depression, DENIES: Hallucinations Except as stated in HPI: all other systems reviewed are Neg Past Family Social History Allergies: Coded Allergies: No Known Allergies (Verified , 08/08/16) Past Medical History Bipolar disorder Hepatitis C IV drug abuse Hypertension Chronic pain Malignant medical noncompliance COPD Teeth extraction Sleep apnea Ulcers GERD Renal failure Prostate cancer with history of prostatectomy Depression anxiety Past Surgical History Cholecystectomy Prostatectomy for prostate cancer Open reduction internal fixation left patellar Shoulder arthroscopic surgery Neck surgery with a plate Reported Medications Reported Meds & Active Scripts Active Reported Norvasc (Amlodipine Besylate) 10 Mg Tab 10 Mg PO DAILY Active Ordered Medications Current Medications Amlodipine Besylate (Norvasc) 10 mg DAILY PO Last administered on 04/11/17 08 :13; Start 04/11/17 at 09:00 Acetaminophen (Tylenol) 650 mg Q4H PRN PO PAIN 1-5 OR TEMP > 101; Start at 19:00 Al Hydrox/Mg Hydrox/Simethicone (Mag-Al Plus Susp Liq) 30 ml Q6H PRN PO DYSPEPSIA; Start 04/10/17 at 19:00 Magnesium Hydroxide (Milk Of Magnesia Liq) 30 ml DAILY PRN PO CONSTIPATION; Start 04/10/17 at 19:00 Lorazepam (Ativan) 1 mg Q4H PRN PO CIWA 8-10; Start 04/10/17 at 21:00 Lorazepam (Ativan Inj) 1 mg Q4H PRN IV PUSH CIWA 8-10; Start 04/10/17 at 21:00 Lorazepam (Ativan) 2 mg Q2H PRN PO CIWA 11-14 Last administered on 04/10/17t 22:06; Start 04/10/17 at 21:00 Lorazepam (Ativan Inj) 2 mg Q2H PRN IV PUSH CIWA 11-14; Start 04/10/17 at 21: 00 Lorazepam (Ativan Inj) 2 mg Q1H PRN IV PUSH CIWA 15-20; Start 04/10/17 at 21: 00 Lorazepam (Ativan Inj) 2 mg Q15M PRN IV PUSH CIWA > 20; Start 04/10/17 at 21: 00 Flumazenil (Romazicon Inj) 0.2 mg Q1M PRN IV PUSH SEE LABEL COMMENTS; Start at 21:00 Sertraline HCl (Zoloft) 50 mg DAILY PO ; Start 04/11/17 at 09:30 Hydroxyzine HCl (Atarax) 50 mg Q6H PRN PO MODERATE TO SEVERE ANXIETY; Start at 09:30 Trazodone HCl (Desyrel) 100 mg HS PO ; Start 04/11/17 at 21:00 Ondansetron HCl (Zofran Odt) 4 mg Q6H PRN PO nausea or vomiting; Start at 10:00; Status UNV Ondansetron HCl (Zofran Inj) 4 mg Q6HR PRN IV PUSH nausea or vomiting; Start 04/11/17 at 10:00; Status UNV Family History Tobacco abuse Depression Lymphoma Social History Tobacco abuse at least a half pack alcohol on occasion IV drug use with heroin Cocaine-crack cocaine Benzodiazepine Physical Exam Vital Signs Vital Signs Date Time Temp Pulse Resp B/P (MAP) Pulse Ox O2 Delivery O2 Flow Rate FiO2 04/11/17 05:43 98.0 69 16 131/78 (95) 99 04/10/17 18:36 98.0 88 16 146/75 (98) 99 04/10/17 18:00 98.0 99 16 148/102 (117) 99 Physical Exam GENERAL: This is a well-nourished, well-developed patient, in no apparent distress. SKIN: No rashes, ecchymoses or lesions. Cool and dry. HEAD: Atraumatic. Normocephalic. No temporal or scalp tenderness. EYES: Pupils equal round and reactive. Extraocular motions intact. No scleral icterus. No injection or drainage. ENT: Nose without bleeding, purulent drainage or septal hematoma. Throat without erythema, tonsillar hypertrophy or exudate. Uvula midline. Airway patent. NECK: Trachea midline. No JVD or lymphadenopathy. Supple, nontender, no meningeal signs. CARDIOVASCULAR: Regular rate and rhythm without murmurs, gallops, or rubs. S1 and S2 no S3 or S4 RESPIRATORY: Clear to auscultation. Breath sounds equal bilaterally. No wheezes , rales, or rhonchi. GASTROINTESTINAL: Abdomen soft, non-tender, nondistended. No hepato-splenomegaly , or palpable masses. No guarding. MUSCULOSKELETAL: Extremities without clubbing, cyanosis, or edema. No joint tenderness, effusion, or edema noted. No calf tenderness. Negative Homans sign bilaterally. NEUROLOGICAL: Awake and alert. Cranial nerves II through XII intact. Motor and sensory grossly within normal limits. Five out of 5 muscle strength in all muscle groups. Normal speech. Insight and judgment is limited Mood and behavior is somewhat appropriate Laboratory Laboratory Tests Test 04/11/17 07:28 Blood Urea Nitrogen 11 Creatinine 0.96 Random Glucose 86 Calcium Level 8.9 Sodium Level 137 Potassium Level 3.8 Chloride Level 104 Carbon Dioxide Level 26.4 Anion Gap 7 Estimat Glomerular Filtration Rate 79 Triglycerides Level 81 Cholesterol Level 150 LDL Cholesterol 82 HDL Cholesterol 51.6 Cholesterol/HDL Ratio 2.90 Result Diagram: 04/11/1728 Assessment and Plan Assessment and Plan Recent acute kidney injury improved Altered mental status resolved Polysubstance abuse with cocaine and heroin and benzodiazepine Tobacco abuse recommend cessation Chronic neck and back pain continue on Lortabs Nausea and vomiting continue on Zofran either sublingual or IV Hypertension continue on Norvasc will have Catapres available also for any withdrawal signs Hepatitis C recommend stop using IV drug abuse, stop heroin, stop cocaine and or crack cocaine We'll get a.m. labs Code Status Full code Discussed Condition With Discussed with patient and RN Lei Buenrostro DO Apr 11, 2017 10:17
[2017-04-11] MEDS: SERTRALINE HCL 50 MG TAB PO SCH (10:27)
[2017-04-11] MEDS: ONDANSETRON ODT 4 MG TAB PO PRN ×3 (10:27→22:17)
[2017-04-11] MEDS: ACETAMINOPHEN/HYDROcodone 325 MG/10 MG TAB PO PRN ×3 (10:28→22:24)
[2017-04-11] MEDS ORDERED: cloNIDine HCL 0.1 MG TAB PO PRN (11:00)
[2017-04-11 14:44] LABS: HEMOGLOBIN A1C 5.1 % (4.3-6.0)
[2017-04-11 18:00] VITALS: BP 127/60; PULSE 73; RESP 17; TEMP 98; O2SAT 98
[2017-04-11] MEDS: traZODone HCL 100 MG TAB PO SCH (21:02)
[2017-04-12] MEDS: hydrOXYzine HCL 50 MG TAB PO PRN (00:16)
[2017-04-12 06:23] VITALS: BP 118/59; PULSE 70; RESP 18; TEMP 97.7; O2SAT 96
[2017-04-12] MEDS: ONDANSETRON ODT 4 MG TAB PO PRN ×3 (07:20→20:14)
[2017-04-12] MEDS: SERTRALINE HCL 50 MG TAB PO SCH (07:21)
[2017-04-12] MEDS: ACETAMINOPHEN/HYDROcodone 325 MG/10 MG TAB PO PRN ×3 (07:21→20:12)
--- NOTE | 2017-04-12 08:25 | HHI.PYPN ---
Subjective Remarks Patient seen in his room with nurse Nneka ashraf chart review, patient compliant medication. Patient alert oriented white male long calmly in bed is cooperative. Perhaps minimizing some of the behaviors that led to this hospitalization. He is somewhat reluctant to discuss his multiple drug abuse history. He now denies suicidality homicidality voices or visions. For now continue treatment Review of Systems Except as stated in HPI: all other systems reviewed are Neg Mental Status Examination Appearance: Appropriate Consciousness: Alert Orientation: Person, Place, Date/Time Speech: Unremarkable Language: Adequate Fund of Knowledge: Inadequate Attention and Concentration: Adequate Memory: Impaired (surrounding events prior to his admission) Mood: Sad Affect: Sad Thought Process & Associations: Linear Thought Content: Appropriate Hallucination Type: None Delusion Type: None Suicidal Ideation: No Suicidal Plan: No Suicidal Intention: No Homicidal Ideation: No Homicidal Plan: No Homicidal Intention: No Insight: Poor Judgment: Impulsive Results Vitals/IOs Vital Signs Date Time Temp Pulse Resp B/P (MAP) Pulse Ox O2 Delivery O2 Flow Rate FiO2 04/12/17 06:23 97.7 70 18 118/59 (78) 96 Intake and Output 04/12/17 04/12/17 04/13/17 08:00 16:00 00:00 Intake Total 600 ml Balance 600 ml Assessment & Plan Problem List: (1) Adjustment disorder with mixed anxiety and depressed mood ICD Codes: F43.23 - Adjustment disorder with mixed anxiety and depressed mood (2) Polysubstance abuse ICD Codes: F19.10 - Polysubstance abuse Status: Chronic Assessment & Plan Estimated LOS: days patient continues somewhat depressed though now denying suicidality homicidality voices or visions, continues to minimizes substance abuse history. For now continue treatment Justification for Cont. Inpt. At this time patient would decompensate if place to the lower level of care Discharge Planning Possible return to his prior living situation Xavier Monroy MD Apr 12, 2017 08:25
--- NOTE | 2017-04-12 09:29 | HHI.PR ---
Subjective Remarks Patient is a 61-year-old gentleman, who was recently discharged from inpatient observation, for altered mental status. Patient has past medical history of bipolar, hepatitis C, hypertension, polysubstance abuse with IV drug abuse, chronic neck pain, cocaine, and heroin abuse and benzodiazepine abuse we have been asked to see the patient regarding help with his medical management. Patient states that he normally takes Lortabs 10/325 one by mouth 4 times a day he states he previously had seen pain management. Could not totally specifically who gave him the Lortabs in the past Also has had some nausea. We'll make Zofran sublingual and IV available 04-12 patient states the Lortabs are helping his pain Still needing some Zofran on and off for nausea. States he refused his lab draws today Discussed with patient and RN Objective Vitals Vital Signs Date Time Temp Pulse Resp B/P (MAP) Pulse Ox O2 Delivery O2 Flow Rate FiO2 04/12/17 06:23 97.7 70 18 118/59 (78) 96 04/11/17 18:00 98.0 73 17 127/60 (82) 98 I/O 04/11/17 04/11/17 04/11/17 04/12/17 04/12/17 04/12/17 07:00 15:00 23:00 07:00 15:00 23:00 Intake Total 240 ml 960 ml 1440 ml 360 ml 240 ml Balance 240 ml 960 ml 1440 ml 360 ml 240 ml Intake Oral 240 ml 960 ml 1440 ml 240 ml 240 ml Oral Supplement 120 ml # Voids 1 Result Diagram: 04/11/17 0728 Other Results Laboratory Tests Test 04/11/17 07:28 Blood Urea Nitrogen 11 MG/DL Creatinine 0.96 MG/DL Random Glucose 86 MG/DL Calcium Level 8.9 MG/DL Sodium Level 137 MEQ/L Potassium Level 3.8 MEQ/L Chloride Level 104 MEQ/L Carbon Dioxide Level 26.4 MEQ/L Anion Gap 7 MEQ/L Estimat Glomerular Filtration Rate 79 ML/MIN Hemoglobin A1c 5.1 % Triglycerides Level 81 MG/DL Cholesterol Level 150 MG/DL LDL Cholesterol 82 MG/DL HDL Cholesterol 51.6 MG/DL Cholesterol/HDL Ratio 2.90 RATIO Objective Remarks GENERAL: Awake alert oriented talkative and cooperative SKIN: Warm and dry. HEAD: Atraumatic. Normocephalic. EYES: Pupils equal and round. No scleral icterus. No injection or drainage. Extraocular muscles intact ENT: No nasal bleeding or discharge. Mucous membranes pink and moist. Tongue is midline NECK: Trachea midline. No JVD. Supple CARDIOVASCULAR: Regular rate and rhythm. S1 and S2 no S3 or S4 RESPIRATORY: No accessory muscle use. Clear to auscultation. Breath sounds equal bilaterally. GASTROINTESTINAL: Abdomen soft, non-tender, nondistended. Hepatic and splenic margins not palpable. MUSCULOSKELETAL: Extremities without clubbing, cyanosis, or edema. No obvious deformities. NEUROLOGICAL: Awake and alert. No obvious cranial nerve deficits. Motor grossly within normal limits. Five out of 5 muscle strength in the arms and legs. Normal speech. PSYCHIATRIC: INAppropriate mood and affect; insight and judgment ABnormal. Procedures None Medications and IVs Current Medications Amlodipine Besylate (Norvasc) 10 mg DAILY PO Last administered on 04/11/17 08 :13; Start 04/11/17 at 09:00 Acetaminophen (Tylenol) 650 mg Q4H PRN PO PAIN 1-5 OR TEMP > 101; Start at 19:00 Al Hydrox/Mg Hydrox/Simethicone (Mag-Al Plus Susp Liq) 30 ml Q6H PRN PO DYSPEPSIA; Start 04/10/17 at 19:00 Magnesium Hydroxide (Milk Of Magnesia Liq) 30 ml DAILY PRN PO CONSTIPATION; Start 04/10/17 at 19:00 Lorazepam (Ativan) 1 mg Q4H PRN PO CIWA 8-10; Start 04/10/17 at 21:00 Lorazepam (Ativan Inj) 1 mg Q4H PRN IV PUSH CIWA 8-10; Start 04/10/17 at 21:00 Lorazepam (Ativan) 2 mg Q2H PRN PO CIWA 11-14 Last administered on 04/10/17t 22:06; Start 04/10/17 at 21:00 Lorazepam (Ativan Inj) 2 mg Q2H PRN IV PUSH CIWA 11-14; Start 04/10/17 at 21: 00 Lorazepam (Ativan Inj) 2 mg Q1H PRN IV PUSH CIWA 15-20; Start 04/10/17 at 21: 00 Lorazepam (Ativan Inj) 2 mg Q15M PRN IV PUSH CIWA > 20; Start 04/10/17 at 21: 00 Flumazenil (Romazicon Inj) 0.2 mg Q1M PRN IV PUSH SEE LABEL COMMENTS; Start at 21:00 Sertraline HCl (Zoloft) 50 mg DAILY PO Last administered on 04/12/17 07:21; Start 04/11/17 at 09:30 Hydroxyzine HCl (Atarax) 50 mg Q6H PRN PO MODERATE TO SEVERE ANXIETY Last administered on 04/12/17 00:16; Start 04/11/17 at 09:30 Trazodone HCl (Desyrel) 100 mg HS PO Last administered on 04/11/17 21:02; Start 04/11/17 at 21:00 Ondansetron HCl (Zofran Odt) 4 mg Q6H PRN PO nausea or vomiting Last administered on 04/12/17 07:20; Start 04/11/17 at 10:00 Ondansetron HCl (Zofran Inj) 4 mg Q6HR PRN IV PUSH nausea or vomiting; Start 04/11/17 at 10:00 Acetaminophen/ Hydrocodone Bitart ([place] 10-325 Mg) 1 tab Q6H PRN PO pain 6-10 Last administered on 04/12/17 07:21; Start 04/11/17 at 10:00 Clonidine (Catapres) 0.1 mg Q4H PRN PO SBP>160, DBP>90; Start 04/11/17 at 11: 00 A/P Assessment and Plan Recent acute kidney injury improved BUN/creatinine were stable yesterday has not been in the lab checked today and has refused them Altered mental status resolved Polysubstance abuse with cocaine and heroin and benzodiazepine Tobacco abuse recommend cessation Chronic neck and back pain continue on Lortabs Nausea and vomiting continue on Zofran either sublingual or IV Hypertension continue on Norvasc will have Catapres available also for any withdrawal signs Hepatitis C recommend stop using IV drug abuse, stop heroin, stop cocaine and or crack cocaine We'll get a.m. labs if he allows him Discharge Planning Pending psychiatric clearance Lei Buenrostro DO Apr 12, 2017 09:29
[2017-04-12 12:37] LABS: AUTOMATED NEUTROPHIL # 3.6 TH/MM3 (1.8-7.7); BASOPHIL # 0.1 TH/MM3 (0-0.2); BASOPHIL % 0.9 % (0.0-2.0); EOSINOPHIL # 0.1 TH/MM3 (0-0.4); EOSINOPHIL % 1.4 % (0.0-4.0); HEMATOCRIT 39.7 % (39.0-51.0); HEMOGLOBIN 13.5 GM/DL (13.0-17.0); LYMPH % 32.8 % (9.0-44.0); LYMPHOCYTE # 1.9 TH/MM3 (1.0-4.8); MEAN CELL VOLUME 96.6 FL (80.0-100.0); MEAN CORPUSCULAR HEMOGLOBIN 32.9 PG (27.0-34.0); MEAN PLATELET VOLUME 9.1 FL (7.0-11.0); MONO % 4.9 % (0.0-8.0); MONOCYTE # 0.3 TH/MM3 (0-0.9); PLATELET COUNT 166 TH/MM3 (150-450); RED BLOOD COUNT 4.11 MIL/MM3 (4.50-5.90); RED CELL DISTRIBUTION WIDTH 13.5 % (11.6-17.2); WHITE BLOOD COUNT 5.9 TH/MM3 (4.0-11.0)
[2017-04-12 12:46] LABS: ALBUMIN 3.2 GM/DL (3.4-5.0); AST (GOT) 36 U/L (15-37); BLOOD UREA NITROGEN 10 MG/DL (7-18); CALCIUM 8.8 MG/DL (8.5-10.1); CHLORIDE 102 MEQ/L (98-107); CREATININE 1.17 MG/DL (0.60-1.30); GLOMERULAR FILTRATION RATE 63 ML/MIN (>89); GLUCOSE,RANDOM 139 MG/DL (74-106); MAGNESIUM 1.8 MG/DL (1.5-2.5); SODIUM (NA) 136 MEQ/L (136-145)
[2017-04-12 12:56] LABS: ALKALINE PHOSPHATASE 86 U/L (45-117); ALT (GPT) 78 U/L (12-78); FREE T4 1.31 NG/DL (0.76-1.46); PHOSPHORUS 3.7 MG/DL (2.5-4.9); TOTAL BILIRUBIN ADULT 0.3 MG/DL (0.2-1.0); TOTAL PROTEIN 6.6 GM/DL (6.4-8.2)
[2017-04-12 14:44] LABS: HEMOGLOBIN A1C 5.1 % (4.3-6.0)
[2017-04-12 18:30] VITALS: BP 132/63; PULSE 75; RESP 16; TEMP 98.1; O2SAT 97
[2017-04-12] MEDS: traZODone HCL 100 MG TAB PO SCH (20:11)
[2017-04-13] MEDS: ACETAMINOPHEN/HYDROcodone 325 MG/10 MG TAB PO PRN ×4 (01:44→20:47)
[2017-04-13] MEDS: hydrOXYzine HCL 50 MG TAB PO PRN ×3 (04:33→16:14)
[2017-04-13 06:11] VITALS: BP 133/64; PULSE 63; RESP 18; TEMP 97.7; O2SAT 97
[2017-04-13 07:33] LABS: AUTOMATED NEUTROPHIL # 2.7 TH/MM3 (1.8-7.7); BASOPHIL # 0.1 TH/MM3 (0-0.2); EOSINOPHIL # 0.2 TH/MM3 (0-0.4); EOSINOPHIL % 2.7 % (0.0-4.0); LYMPH % 42.9 % (9.0-44.0); LYMPHOCYTE # 2.6 TH/MM3 (1.0-4.8); MEAN CELL VOLUME 96.3 FL (80.0-100.0); MEAN CORPUSCULAR HGB CONC 34.2 % (32.0-36.0); MEAN PLATELET VOLUME 9.8 FL (7.0-11.0); MONO % 8.2 % (0.0-8.0); MONOCYTE # 0.5 TH/MM3 (0-0.9); NEUT % 45.2 % (16.0-70.0); PLATELET COUNT 181 TH/MM3 (150-450); RED BLOOD COUNT 4.26 MIL/MM3 (4.50-5.90); RED CELL DISTRIBUTION WIDTH 13.6 % (11.6-17.2)
[2017-04-13 07:51] LABS: ALBUMIN 3.3 GM/DL (3.4-5.0); ALT (GPT) 89 U/L (12-78); AST (GOT) 57 U/L (15-37); BICARBONATE 31.4 MEQ/L (21.0-32.0); BLOOD UREA NITROGEN 8 MG/DL (7-18); CALCIUM 8.7 MG/DL (8.5-10.1); CHLORIDE 101 MEQ/L (98-107); CREATININE 1.06 MG/DL (0.60-1.30); GLOMERULAR FILTRATION RATE 71 ML/MIN (>89); GLUCOSE,RANDOM 83 MG/DL (74-106); MAGNESIUM 2.1 MG/DL (1.5-2.5); PHOSPHORUS 3.6 MG/DL (2.5-4.9); SODIUM (NA) 136 MEQ/L (136-145)
[2017-04-13] MEDS: ONDANSETRON ODT 4 MG TAB PO PRN ×2 (08:01→14:30)
[2017-04-13] MEDS: SERTRALINE HCL 50 MG TAB PO SCH (08:01)
[2017-04-13 08:10] LABS: ALKALINE PHOSPHATASE 86 U/L (45-117); TOTAL BILIRUBIN ADULT 0.3 MG/DL (0.2-1.0); TOTAL PROTEIN 6.8 GM/DL (6.4-8.2)
--- NOTE | 2017-04-13 08:19 | HHI.PYPN ---
Subjective Remarks Patient seen in his room with nurse Montserrat, chart reviewed, patient compliant medications. Patient does deny suicidality at this time, denies voices. States though sleep is been difficult of both initial and mid insomnia. Will increase trazodone to 150 mg at bedtime continue treatment Review of Systems Except as stated in HPI: all other systems reviewed are Neg Mental Status Examination Appearance: Appropriate Consciousness: Alert Orientation: Person, Place, Date/Time Speech: Unremarkable Language: Adequate Fund of Knowledge: Inadequate Attention and Concentration: Adequate Memory: Impaired (surrounding events prior to his admission) Mood: Sad Affect: Sad Thought Process & Associations: Linear Thought Content: Appropriate Hallucination Type: None Delusion Type: None Suicidal Ideation: No Suicidal Plan: No Suicidal Intention: No Homicidal Ideation: No Homicidal Plan: No Homicidal Intention: No Insight: Poor Judgment: Impulsive Results Labs Test 04/12/17 11:54 04/13/17 06:49 White Blood Count 5.9 TH/MM3 6.0 TH/MM3 Red Blood Count 4.11 MIL/MM3 4.26 MIL/MM3 Hemoglobin 13.5 GM/DL 14.0 GM/DL Hematocrit 39.7 % 41.0 % Mean Corpuscular Volume 96.6 FL 96.3 FL Mean Corpuscular Hemoglobin 32.9 PG 33.0 PG Mean Corpuscular Hemoglobin Concent 34.0 % 34.2 % Red Cell Distribution Width 13.5 % 13.6 % Platelet Count 166 TH/MM3 181 TH/MM3 Mean Platelet Volume 9.1 FL 9.8 FL Neutrophils (%) (Auto) 60.0 % 45.2 % Lymphocytes (%) (Auto) 32.8 % 42.9 % Monocytes (%) (Auto) 4.9 % 8.2 % Eosinophils (%) (Auto) 1.4 % 2.7 % Basophils (%) (Auto) 0.9 % 1.0 % Neutrophils # (Auto) 3.6 TH/MM3 2.7 TH/MM3 Lymphocytes # (Auto) 1.9 TH/MM3 2.6 TH/MM3 Monocytes # (Auto) 0.3 TH/MM3 0.5 TH/MM3 Eosinophils # (Auto) 0.1 TH/MM3 0.2 TH/MM3 Basophils # (Auto) 0.1 TH/MM3 0.1 TH/MM3 CBC Comment DIFF FINAL DIFF FINAL Differential Comment Blood Urea Nitrogen 10 MG/DL 8 MG/DL Creatinine 1.17 MG/DL 1.06 MG/DL Random Glucose 139 MG/DL 83 MG/DL Total Protein 6.6 GM/DL 6.8 GM/DL Albumin 3.2 GM/DL 3.3 GM/DL Calcium Level 8.8 MG/DL 8.7 MG/DL Phosphorus Level 3.7 MG/DL 3.6 MG/DL Magnesium Level 1.8 MG/DL 2.1 MG/DL Alkaline Phosphatase 86 U/L 86 U/L Aspartate Amino Transf (AST/SGOT) 36 U/L 57 U/L Alanine Aminotransferase (ALT/SGPT) 78 U/L 89 U/L Total Bilirubin 0.3 MG/DL 0.3 MG/DL Sodium Level 136 MEQ/L 136 MEQ/L Potassium Level 3.9 MEQ/L 3.7 MEQ/L Chloride Level 102 MEQ/L 101 MEQ/L Carbon Dioxide Level 28.0 MEQ/L 31.4 MEQ/L Anion Gap 6 MEQ/L 4 MEQ/L Estimat Glomerular Filtration Rate 63 ML/MIN 71 ML/MIN Hemoglobin A1c 5.1 % Free Thyroxine 1.31 NG/DL 1.40 NG/DL Thyroid Stimulating Hormone 3rd Gen 1.970 uIU/ML 2.090 uIU/ML Vitals/IOs Vital Signs Date Time Temp Pulse Resp B/P (MAP) Pulse Ox O2 Delivery O2 Flow Rate FiO2 04/13/17 06:11 97.7 63 18 133/64 (87) 97 Intake and Output 04/13/17 04/13/17 04/14/17 08:00 16:00 00:00 Intake Total 720 ml Balance 720 ml Assessment & Plan Problem List: (1) Adjustment disorder with mixed anxiety and depressed mood ICD Codes: F43.23 - Adjustment disorder with mixed anxiety and depressed mood (2) Polysubstance abuse ICD Codes: F19.10 - Polysubstance abuse Status: Chronic Assessment & Plan Estimated LOS: days patient continues depressed and insomnia, while denying voices are suicidality at this time. She medication adjustment above Justification for Cont. Inpt. This time patient with decompensated placed on lower level of care Discharge Planning Patient is homeless placement may become problematic Xavier Monroy MD Apr 13, 2017 08:19
--- NOTE | 2017-04-13 10:19 | HHI.PR ---
Subjective Remarks Patient is a 61-year-old gentleman, who was recently discharged from inpatient observation, for altered mental status. Patient has past medical history of bipolar, hepatitis C, hypertension, polysubstance abuse with IV drug abuse, chronic neck pain, cocaine, and heroin abuse and benzodiazepine abuse we have been asked to see the patient regarding help with his medical management. Patient states that he normally takes Lortabs 10/325 one by mouth 4 times a day he states he previously had seen pain management. Could not totally specifically who gave him the Lortabs in the past Also has had some nausea. We'll make Zofran sublingual and IV available 04-12 patient states the Lortabs are helping his pain Still needing some Zofran on and off for nausea. States he refused his lab draws today Discussed with patient and RN 04-13 NO NEW COMPLAINTS STATES NOT SLEEPING WELL- PSYCHIATRY INCREASED TRAZODONE HE MAY BE HOMELESS DW RN AND PT CONTINUES TO TAKE PAIN MEDS Objective Vitals Vital Signs Date Time Temp Pulse Resp B/P (MAP) Pulse Ox O2 Delivery O2 Flow Rate FiO2 04/13/17 09:27 18 04/13/17 06:11 97.7 63 18 133/64 (87) 97 04/12/17 18:30 98.1 75 16 132/63 (86) 97 I/O 04/12/17 04/12/17 04/12/17 04/13/17 04/13/17 04/13/17 07:00 15:00 23:00 07:00 15:00 23:00 Intake Total 360 ml 240 ml 600 ml 480 ml 240 ml Balance 360 ml 240 ml 600 ml 480 ml 240 ml Intake Oral 240 ml 240 ml 600 ml 480 ml 240 ml Oral Supplement 120 ml # Voids 2 1 1 Result Diagram: 04/13/17 0649 04/13/17 0649 Other Results Laboratory Tests Test 04/11/17 07:28 04/12/17 11:54 04/13/17 06:49 Blood Urea Nitrogen 11 MG/DL 10 MG/DL 8 MG/DL Creatinine 0.96 MG/DL 1.17 MG/DL 1.06 MG/DL Random Glucose 86 MG/DL 139 MG/DL 83 MG/DL Calcium Level 8.9 MG/DL 8.8 MG/DL 8.7 MG/DL Sodium Level 137 MEQ/L 136 MEQ/L 136 MEQ/L Potassium Level 3.8 MEQ/L 3.9 MEQ/L 3.7 MEQ/L Chloride Level 104 MEQ/L 102 MEQ/L 101 MEQ/L Carbon Dioxide Level 26.4 MEQ/L 28.0 MEQ/L 31.4 MEQ/L Anion Gap 7 MEQ/L 6 MEQ/L 4 MEQ/L Estimat Glomerular Filtration Rate 79 ML/MIN 63 ML/MIN 71 ML/MIN Hemoglobin A1c 5.1 % 5.1 % Triglycerides Level 81 MG/DL Cholesterol Level 150 MG/DL LDL Cholesterol 82 MG/DL HDL Cholesterol 51.6 MG/DL Cholesterol/HDL Ratio 2.90 RATIO White Blood Count 5.9 TH/MM3 6.0 TH/MM3 Red Blood Count 4.11 MIL/MM3 4.26 MIL/MM3 Hemoglobin 13.5 GM/DL 14.0 GM/DL Hematocrit 39.7 % 41.0 % Mean Corpuscular Volume 96.6 FL 96.3 FL Mean Corpuscular Hemoglobin 32.9 PG 33.0 PG Mean Corpuscular Hemoglobin Concent 34.0 % 34.2 % Red Cell Distribution Width 13.5 % 13.6 % Platelet Count 166 TH/MM3 181 TH/MM3 Mean Platelet Volume 9.1 FL 9.8 FL Neutrophils (%) (Auto) 60.0 % 45.2 % Lymphocytes (%) (Auto) 32.8 % 42.9 % Monocytes (%) (Auto) 4.9 % 8.2 % Eosinophils (%) (Auto) 1.4 % 2.7 % Basophils (%) (Auto) 0.9 % 1.0 % Neutrophils # (Auto) 3.6 TH/MM3 2.7 TH/MM3 Lymphocytes # (Auto) 1.9 TH/MM3 2.6 TH/MM3 Monocytes # (Auto) 0.3 TH/MM3 0.5 TH/MM3 Eosinophils # (Auto) 0.1 TH/MM3 0.2 TH/MM3 Basophils # (Auto) 0.1 TH/MM3 0.1 TH/MM3 CBC Comment DIFF FINAL DIFF FINAL Differential Comment Total Protein 6.6 GM/DL 6.8 GM/DL Albumin 3.2 GM/DL 3.3 GM/DL Phosphorus Level 3.7 MG/DL 3.6 MG/DL Magnesium Level 1.8 MG/DL 2.1 MG/DL Alkaline Phosphatase 86 U/L 86 U/L Aspartate Amino Transf (AST/SGOT) 36 U/L 57 U/L Alanine Aminotransferase (ALT/SGPT) 78 U/L 89 U/L Total Bilirubin 0.3 MG/DL 0.3 MG/DL Free Thyroxine 1.31 NG/DL 1.40 NG/DL Thyroid Stimulating Hormone 3rd Gen 1.970 uIU/ML 2.090 uIU/ML Objective Remarks GENERAL: Awake alert oriented talkative and cooperative SKIN: Warm and dry. HEAD: Atraumatic. Normocephalic. EYES: Pupils equal and round. No scleral icterus. No injection or drainage. Extraocular muscles intact ENT: No nasal bleeding or discharge. Mucous membranes pink and moist. Tongue is midline NECK: Trachea midline. No JVD. Supple CARDIOVASCULAR: Regular rate and rhythm. S1 and S2 no S3 or S4 RESPIRATORY: No accessory muscle use. Clear to auscultation. Breath sounds equal bilaterally. GASTROINTESTINAL: Abdomen soft, non-tender, nondistended. Hepatic and splenic margins not palpable. MUSCULOSKELETAL: Extremities without clubbing, cyanosis, or edema. No obvious deformities. NEUROLOGICAL: Awake and alert. No obvious cranial nerve deficits. Motor grossly within normal limits. Five out of 5 muscle strength in the arms and legs. Normal speech. PSYCHIATRIC: INAppropriate mood and affect; insight and judgment ABnormal. Procedures None Medications and IVs Current Medications Amlodipine Besylate (Norvasc) 10 mg DAILY PO Last administered on 04/13/17 08 :01; Start 04/11/17 at 09:00 Acetaminophen (Tylenol) 650 mg Q4H PRN PO PAIN 1-5 OR TEMP > 101; Start at 19:00 Al Hydrox/Mg Hydrox/Simethicone (Mag-Al Plus Susp Liq) 30 ml Q6H PRN PO DYSPEPSIA; Start 04/10/17 at 19:00 Magnesium Hydroxide (Milk Of Magnesia Liq) 30 ml DAILY PRN PO CONSTIPATION; Start 04/10/17 at 19:00 Lorazepam (Ativan) 1 mg Q4H PRN PO CIWA 8-10; Start 04/10/17 at 21:00 Lorazepam (Ativan Inj) 1 mg Q4H PRN IV PUSH CIWA 8-10; Start 04/10/17 at 21:00 Lorazepam (Ativan) 2 mg Q2H PRN PO CIWA 11-14 Last administered on 04/10/17 22:06; Start 04/10/17 at 21:00 Lorazepam (Ativan Inj) 2 mg Q2H PRN IV PUSH CIWA 11-14; Start 04/10/17 at 21: 00 Lorazepam (Ativan Inj) 2 mg Q1H PRN IV PUSH CIWA 15-20; Start 04/10/17 at 21: 00 Lorazepam (Ativan Inj) 2 mg Q15M PRN IV PUSH CIWA > 20; Start 04/10/17 at 21: 00 Flumazenil (Romazicon Inj) 0.2 mg Q1M PRN IV PUSH SEE LABEL COMMENTS; Start at 21:00 Sertraline HCl (Zoloft) 50 mg DAILY PO Last administered on 04/13/17 08:01; Start 04/11/17 at 09:30 Hydroxyzine HCl (Atarax) 50 mg Q6H PRN PO MODERATE TO SEVERE ANXIETY Last administered on 04/13/17 10:11; Start 04/11/17 at 09:30 Trazodone HCl (Desyrel) 100 mg HS PO Last administered on 04/12/17 20:11; Start 04/11/17 at 21:00; Stop 04/13/17 at 08:17; Status DC Ondansetron HCl (Zofran Odt) 4 mg Q6H PRN PO nausea or vomiting Last administered on 04/13/17 08:01; Start 04/11/17 at 10:00 Ondansetron HCl (Zofran Inj) 4 mg Q6HR PRN IV PUSH nausea or vomiting; Start 04/11/17 at 10:00 Acetaminophen/ Hydrocodone Bitart ([place] 10-325 Mg) 1 tab Q6H PRN PO pain 6-10 Last administered on 04/13/17 08:01; Start 04/11/17 at 10:00 Clonidine (Catapres) 0.1 mg Q4H PRN PO SBP>160, DBP>90; Start 04/11/17 at 11: 00 Trazodone HCl (Desyrel) 150 mg HS PO ; Start 04/13/17 at 21:00 A/P Assessment and Plan Recent acute kidney injury improved BUN/creatinine STABLE Altered mental status resolved Polysubstance abuse with cocaine and heroin and benzodiazepine Tobacco abuse recommend cessation Chronic neck and back pain continue on Lortabs DRUG SEEKING BEHAVIORS Nausea and vomiting continue on Zofran either sublingual or IV Hypertension continue on Norvasc will have Catapres available also for any withdrawal signs Hepatitis C recommend stop using IV drug abuse, stop heroin, stop cocaine and or crack cocaine HAS ELEVATED LFTS SUSPECT DUE TO THIS POSSIBLE HOMELESS Discharge Planning Pending psychiatric clearance Lei Buenrostro DO Apr 13, 2017 10:18
[2017-04-13] MEDS ORDERED: PROMETHAZINE HCL 25 MG SUPP RECTAL PRN (13:15)
[2017-04-13] MEDS: BISMUTH SUBSALICYLATE 240 ML BTL PO PRN (13:53)
[2017-04-13 17:29] VITALS: BP 128/64; PULSE 77; RESP 16; TEMP 97.8; O2SAT 97
[2017-04-13] MEDS: traZODone HCL 100 MG TAB PO SCH (20:46)
[2017-04-13] MEDS: TRIAMCINOLONE ACETONIDE 0.1% CREAM 15 GM TOPICAL SCH (20:48)
[2017-04-14 06:14] VITALS: BP 111/59; PULSE 64; RESP 20; TEMP 98.2; O2SAT 98
[2017-04-14] MEDS: SERTRALINE HCL 50 MG TAB PO SCH (08:31)
[2017-04-14] MEDS: TRIAMCINOLONE ACETONIDE 0.1% CREAM 15 GM TOPICAL SCH ×2 (08:32→20:46)
[2017-04-14] MEDS: ACETAMINOPHEN/HYDROcodone 325 MG/10 MG TAB PO PRN ×3 (08:32→20:43)
[2017-04-14] MEDS: hydrOXYzine HCL 50 MG TAB PO PRN ×2 (08:34→14:22)
[2017-04-14] MEDS: BISMUTH SUBSALICYLATE 240 ML BTL PO PRN ×3 (08:35→18:45)
--- NOTE | 2017-04-14 11:11 | HHI.PYPN ---
Subjective Remarks Continues to complain of multiple symptoms of depression. He continues to be drug seeking, especially with regard to opiates and benzos. Continues to report significant insomnia which is aggravating his depression. Review of Systems Psychiatric: COMPLAINS OF: Anxiety, Depression Except as stated in HPI: all other systems reviewed are Neg Mental Status Examination Appearance: Appropriate Consciousness: Alert Orientation: Person, Place, Date/Time Motor Activity: Abnormal gait Speech: Unremarkable Language: Adequate Fund of Knowledge: Inadequate Attention and Concentration: Adequate Memory: Impaired (surrounding events prior to his admission) Mood: Sad Affect: Sad Thought Process & Associations: Linear Thought Content: Appropriate Hallucination Type: None Delusion Type: None Suicidal Ideation: No Suicidal Plan: No Suicidal Intention: No Homicidal Ideation: No Homicidal Plan: No Homicidal Intention: No Insight: Poor Judgment: Impulsive Results Vitals/IOs Vital Signs Date Time Temp Pulse Resp B/P (MAP) Pulse Ox O2 Delivery O2 Flow Rate FiO2 04/14/17 06:14 98.2 64 20 111/59 (76) 98 Intake and Output 04/14/17 04/14/17 04/15/17 08:00 16:00 00:00 Intake Total 480 ml Balance 480 ml Assessment & Plan Problem List: (1) Adjustment disorder with mixed anxiety and depressed mood ICD Codes: F43.23 - Adjustment disorder with mixed anxiety and depressed mood (2) Polysubstance abuse ICD Codes: F19.10 - Polysubstance abuse Status: Chronic Assessment & Plan Estimated LOS: days. Started patient on Seroquel 100 mg by mouth daily at bedtime for mood stabilizing effect and soporific effect. We will monitor for efficacy and tolerability. Justification for Cont. Inpt. Unable to care for self. New medication started and will be evaluated. Mark Mattson MD Apr 14, 2017 11:11
[2017-04-14 18:00] VITALS: BP 125/60; PULSE 65; RESP 16; TEMP 98; O2SAT 97
[2017-04-14] MEDS: traZODone HCL 100 MG TAB PO SCH (20:41)
[2017-04-14] MEDS ORDERED: QUEtiapine FUMARATE 100 MG TAB PO SCH (21:00)
[2017-04-15 06:23] VITALS: BP 105/56; PULSE 63; RESP 17; TEMP 98; O2SAT 96
--- NOTE | 2017-04-15 07:57 | HHI.PR ---
Subjective Remarks delayed note entry from 04/14 c/o nausea , apigastric pain , weigh loss 25 lb over 6 month Objective Vitals Vital Signs Date Time Temp Pulse Resp B/P (MAP) Pulse Ox O2 Delivery O2 Flow Rate FiO2 04/15/17 06:23 98.0 63 17 105/56 (72) 96 04/14/17 18:00 98.0 65 16 125/60 (81) 97 I/O 04/14/17 04/14/17 04/14/17 04/15/17 04/15/17 04/15/17 07:00 15:00 23:00 07:00 15:00 23:00 Intake Total 240 ml 960 ml 240 ml Balance 240 ml 960 ml 240 ml Intake Oral 240 ml 960 ml 240 ml # Voids 1 1 1 1 Result Diagram: 04/13/17 0649 04/13/17 0649 Objective Remarks GENERAL: This is a well-nourished, well-developed patient, in no apparent distress. CARDIOVASCULAR: Regular rate and rhythm without murmurs, gallops, or rubs. RESPIRATORY: Clear to auscultation. Breath sounds equal bilaterally. No wheezes , rales, or rhonchi. GASTROINTESTINAL: Abdomen soft, non-tender, nondistended. Normal active bowel sounds MUSCULOSKELETAL: Extremities without clubbing, cyanosis, or edema. NEURO: Alert & Oriented x4 to person, place, time, situation. Moves all ext x4 Procedures None A/P Assessment and Plan epigastric pain with N/V , weigh loss >> check fobt , consult GI chronic back pain >>continue pain mngmt polysubstance abuse >>pt counselled Vickey Suárez MD Apr 15, 2017 07:57
--- NOTE | 2017-04-15 08:31 | HHI.PYPN ---
Subjective Remarks Patient seen for follow-up, chart review. Discussion. Reported that patient slept well last night, received Ativan 1 last evening due to reporting having anxiety, denied any suicidal homicidal ideations recently. Patient was found lying in hospital bed, cooperative interview today. She states that his weekend went "okay" and his mood is "okay although he continues report feeling depressed. Patient continues to have poor insight into his dependence on benzodiazepines which was reviewed with patient as well as encourage patient to engage in rehabilitation program which was reluctant to do. Patient states that he denies any perceptual disturbances, denies having any suicidal homicidal ideations at this time. Patient reports wanting to ideation with a primary care doctor Dr. Muñoz first of the month as his insurance will start to cover disappointment at that time. Patient agrees to have referral to outpatient psychiatry provider for continued continuity of care. Patient continues report having poor sleep at this time. Review of Systems Except as stated in HPI: all other systems reviewed are Neg Mental Status Examination Appearance: Appropriate Consciousness: Alert Orientation: Person, Place, Date/Time Motor Activity: Abnormal gait Speech: Unremarkable Language: Adequate Fund of Knowledge: Inadequate Attention and Concentration: Adequate Memory: Impaired (surrounding events prior to his admission) Mood: Sad Affect: Sad Thought Process & Associations: Linear Thought Content: Appropriate Hallucination Type: None Delusion Type: None Suicidal Ideation: No Suicidal Plan: No Suicidal Intention: No Homicidal Ideation: No Homicidal Plan: No Homicidal Intention: No Insight: Poor Judgment: Impulsive Results Vitals/IOs Vital Signs Date Time Temp Pulse Resp B/P (MAP) Pulse Ox O2 Delivery O2 Flow Rate FiO2 04/15/17 06:23 98.0 63 17 105/56 (72) 96 Intake and Output 04/15/17 04/15/17 04/16/17 08:00 16:00 00:00 Intake Total 340 ml Balance 340 ml Assessment & Plan Problem List: (1) Adjustment disorder with mixed anxiety and depressed mood ICD Codes: F43.23 - Adjustment disorder with mixed anxiety and depressed mood (2) Polysubstance abuse ICD Codes: F19.10 - Polysubstance abuse Status: Chronic Assessment & Plan Patient this time continues reports feeling depressed, continues to have poor insight into his dependence on benzodiazepines as well as his current substance use (cocaine and IV heroin) . Patient continues to have difficulty with sleep, will increase quetiapine to 150 mg by mouth at bedtime, continue soft 50 mg by mouth daily, continue trazodone 100 mg by mouth at bedtime. We' ll to consent discontinue CIWA protocol as patient has not been having any clinical signs or symptoms of withdrawal. Continue rest of medications, continue recommendations as per primary medical team. Discharge planning in progress Justification for Cont. Inpt. At risk for further decompensation if at lower level of care Discharge Planning Patient return back to his residence was psychiatrically and medically stable. Ousmane Amaral MD Apr 15, 2017 08:31
--- NOTE | 2017-04-15 08:54 | PD.CONS ---
HPI History of Present Illness This is a 61 year old male who came into the hospital on 04/10/17 with complaints of dysphasia to the point that he states he has not been able to eat solids for 1 month. He has had a recent hospital stay according to the record for altered mental status patient also complains of nausea 1 month and states that Zofran and Protonix have not given him any relief. He does have a significant history of GERD, no active vomiting, no change in bowel habits no diarrhea, no constipation, positive for decreased appetite. Patient also notes some abdominal pain he states is constant in the epigastric and gastric region. Patient states no EGD or colonoscopy in recent years. Patient does have a significant history of colon cancer from his mom. Patient currently denies any drug use but according to the record he has chronic IV drug use as well as other comorbidities which include bipolar disorder. Patient does note a 25 pound weight loss in the past 6 months, unspecified reason. Patient does have LFT elevation this admission with his history of hepatitis C, . (Davida Messina) PFSH Past Medical History According to the record Bipolar disorder Hepatitis C IV drug use which includes cocaine, heroine, benzodiazepines, hydrocodone Noncompliance COPD GERD Possible gastric ulcers Renal disease Anxiety Sleep apnea Degenerative disc disease Past Surgical History Prostatectomy left patellar ORIF Shoulder arthroscopic surgery Neck surgery with a plate Cholecystectomy (Davida Messina) Coded Allergies: No Known Allergies (Verified , 08/08/16) Medications Administered Medications Medications (Trade) Dose Ordered Sig/Diamond Route PRN Reason Start Time Stop Time Status Last Admin Dose Admin Amlodipine Besylate (Norvasc) 10 mg DAILY PO 04/11/17 09:00 04/13/17 08:01 Sertraline HCl (Zoloft) 50 mg DAILY PO 04/11/17 09:30 04/14/17 08:31 Hydroxyzine HCl (Atarax) 50 mg Q6H PRN PO MODERATE TO SEVERE ANXIETY 04/11/17 09:30 04/14/17 14:22 Ondansetron HCl (Zofran Odt) 4 mg Q6H PRN PO nausea or vomiting 04/11/17 10:00 04/13/17 14:30 Acetaminophen/ Hydrocodone Bitart ([place]ering 10-325 Mg) 1 tab Q6H PRN PO pain 6-10 04/11/17 10:00 04/14/17 20:43 Trazodone HCl (Desyrel) 150 mg HS PO 04/13/17 21:00 04/14/17 20:41 Bismuth Subsalicylate (Pepto-Bismol Liq) 30 ml PCHS PRN PO nausea/abdominal pain 04/13/17 13:00 04/14/17 18:45 Triamcinolone Acetonide (Aristocort 0.1% Cream) 1 applic BID TOPICAL 04/13/17 21:00 04/14/17 20:46 Family History Mom colon cancer Lymphoma, cardiovascular disease Social History Smoker half a pack a day alcohol occasional History of IV drug use with heroin and cocaine benzodiazepines (Davida Messina) Review of Systems Constitutional: COMPLAINS OF: Fatigue, Weight loss Gastrointestinal: COMPLAINS OF: Nausea, Difficulty Swallowing, Anorexia ( Davida Messina) GI Exam Vitals I&O Vital Signs Date Time Temp Pulse Resp B/P (MAP) Pulse Ox O2 Delivery O2 Flow Rate FiO2 04/15/17 06:23 98.0 63 17 105/56 (72) 96 04/14/17 18:00 98.0 65 16 125/60 (81) 97 I/O 04/14/17 04/14/17 04/14/17 04/15/17 04/15/17 04/15/17 07:00 15:00 23:00 07:00 15:00 23:00 Intake Total 240 ml 960 ml 240 ml 340 ml Balance 240 ml 960 ml 240 ml 340 ml Intake Oral 240 ml 960 ml 240 ml 340 ml # Voids 1 1 1 1 Physical Examination HEENT: Pupils round and reactive to light; normocephalic; atraumatic; no jaundice. Throat is clear. NECK: Neck is supple, no JVD, no lymphadenopathy. CHEST: Chest is clear to auscultation and percussion. CARDIAC: Regular rate and rhythm with no murmur gallop or rubs. ABDOMEN: Soft, nondistended, mild tenderness mid gastric abdominal area; no hepatosplenomegaly; bowel sounds are present in all four quadrants. EXTREMITIES: No clubbing, cyanosis, or edema. SKIN: Normal; no rash; no jaundice. CARDIOPULMONARY TECHNOLOGIST: No focal deficits; speech was slow but clear, fair historian (Davida Messina) Assessment and Plan Assessment: (1) Abdominal pain ICD Codes: R10.9 - Unspecified abdominal pain (2) GERD Status: Chronic (3) Hepatitis C ICD Codes: B19.20 - Hepatitis C virus infection Status: Chronic Plan Plan for colonoscopy and endoscopy in the a.m. Consents to be signed Nothing by mouth at midnight except for his meds needed Clear liquids today Hold any blood thinners PPI\ Monitor for any type of bleeding Monitor labs, recheck in a.m. Will follow up on any recent GI procedures Plan of care will be based on symptoms and patient's needs Patient was seen by myself and Dr. Saez, note was written on his behalf (Davida Messina) Physician Comments Seen and examined, plan as above, will proceed with EGD and Colonoscopy in AM. (Braxton Horne MD) Davida Messina Apr 15, 2017 08:54 Braxton Horne MD Apr 15, 2017 15:58
[2017-04-15] MEDS: TRIAMCINOLONE ACETONIDE 0.1% CREAM 15 GM TOPICAL SCH ×2 (09:00→21:00)
[2017-04-15] MEDS: SERTRALINE HCL 50 MG TAB PO SCH (09:16)
[2017-04-15] MEDS: ACETAMINOPHEN/HYDROcodone 325 MG/10 MG TAB PO PRN ×2 (09:20→15:24)
[2017-04-15] MEDS ORDERED: PEG (High)/E-LYTE SOLN 4000 ML BTL PO ONE (10:00)
--- NOTE | 2017-04-15 13:58 | HHI.PR ---
Subjective Remarks still with N today no V plan for Egd /colonoSCOPY JEREMY Objective Vitals Vital Signs Date Time Temp Pulse Resp B/P (MAP) Pulse Ox O2 Delivery O2 Flow Rate FiO2 04/15/17 06:23 98.0 63 17 105/56 (72) 96 04/14/17 18:00 98.0 65 16 125/60 (81) 97 I/O 04/14/17 04/14/17 04/14/17 04/15/17 04/15/17 04/15/17 07:00 15:00 23:00 07:00 15:00 23:00 Intake Total 240 ml 960 ml 240 ml 340 ml Balance 240 ml 960 ml 240 ml 340 ml Intake Oral 240 ml 960 ml 240 ml 340 ml # Voids 1 1 1 1 Result Diagram: 04/13/17 0649 04/13/17 0649 Objective Remarks GENERAL: This is a well-nourished, well-developed patient, in no apparent distress. CARDIOVASCULAR: Regular rate and rhythm without murmurs, gallops, or rubs. RESPIRATORY: Clear to auscultation. Breath sounds equal bilaterally. No wheezes , rales, or rhonchi. GASTROINTESTINAL: Abdomen soft, non-tender, nondistended. Normal active bowel sounds MUSCULOSKELETAL: Extremities without clubbing, cyanosis, or edema. NEURO: Alert & Oriented x4 to person, place, time, situation. Moves all ext x4 Procedures None A/P Assessment and Plan epigastric pain with N/V , weigh loss >> check fobt , APPRECIATE consult GI , plan for egd/colo tomorrow , FOBT neg chronic back pain >>continue pain mngmt polysubstance abuse >>pt counselled Vickey Suárez MD Apr 15, 2017 13:58
[2017-04-15] MEDS: hydrOXYzine HCL 50 MG TAB PO PRN ×2 (14:36→20:58)
[2017-04-15] MEDS: BISMUTH SUBSALICYLATE 240 ML BTL PO PRN (14:36)
[2017-04-15 18:35] VITALS: BP 151/73; PULSE 76; RESP 16; TEMP 97.5; O2SAT 99
[2017-04-15] MEDS: traZODone HCL 100 MG TAB PO SCH (20:58)
[2017-04-15] MEDS ORDERED: QUEtiapine FUMARATE 100 MG TAB PO SCH (21:00)
[2017-04-16 06:05] VITALS: BP 130/69; PULSE 58; RESP 20; TEMP 97.8; O2SAT 98
[2017-04-16] MEDS ORDERED: ZOLO50TA PO (09:31)
[2017-04-16] MEDS ORDERED: TRAZ1TAB14 PO (09:31)
[2017-04-16] MEDS ORDERED: QUET1TAB8 PO (09:31)
--- NOTE | 2017-04-16 09:46 | HHI.DS ---
Psychiatry Discharge Summary Inpatient Psychiatric care?: Yes Advance Directive: No Reason Not Provided: DOESNT HAVE ONE Mental Health AdvanceDirective: No Health Care Proxy: No Admission Admission Date Apr 10, 2017 at 16:54 Admission Diagnosis: (1) Adjustment disorder with mixed anxiety and depressed mood ICD Code: F43.23 - Adjustment disorder with mixed anxiety and depressed mood (2) Polysubstance abuse ICD Code: F19.10 - Polysubstance abuse Brief History Patient is a 61-year-old man, single, domiciled alone, unemployed on disability benefits, with a past psychiatric history of depression and anxiety, polysubstance use disorder, 1 previous psychiatric hospitalizations, no prior suicide attempts or self at his behavior, with a substance use history significant for crack cocaine, heroin, benzodiazepines, with a past medical history of COPD, hepatitis C, GRED, chronic neck pain, who was seen in the ED on 04/09/17 for altered mental status which is brought in by EMS for possible unintentional overdose with his home medications and transferred to the inpatient psychiatry for further evaluation and management for adjustment of medications. Patient was found lying in hospital bed, cooperative. Patient states that he does not remember much prior to his admission was only told that he had been found sitting with vomitus on him and one-to-one was called by his niece or nephew who was his been visiting with him recently. Patient states that he has not had a Prior episode similar to this, denies any previous suicide attempt, denies having overdose intentionally, and states not remembering taking his medications that day. Patient reports that recent medications that he has been taking include trazodone 150 mg at night as well as Xanax 2 mg tablet 4 times a day which she reports last use about 11-12 days ago. She states that he had his medications lost had not taken them since that time ago. Patient mentions that he had been having difficulty with sleep, appetite energy and concentration, feeling depressed but denying feeling helpless hopeless, feelings of guilt or having any suicidal ideations. Patient states his current stressors include feeling that he cannot do what he was able to do before. Patient denies any perceptual disturbances or delusions at this time. Currently patient reports feeling "not too good". He mentions that he does not have an outpatient psychiatrist but is planning to find a primary care doctor that is within his insurance network. Patient reports that he has been getting his medications from [facility] (hospice). Family psychiatric history: Mother with depression, denies any known suicides in the family. Past psychiatric history: Previous psychiatric diagnoses of depression, anxiety , polysubstance use disorder (benzodiazepines, cocaine, heroin) 1 previous psychiatric hospitalization here [facility] in 2011, no previous suicide attempt or self-injurious behavior. Patient has no current outpatient psychiatrist, last psychiatrist she had seen was Dr. Ordonez who he last saw in November but does not plan return back with him. Patient reports prior medication trials include Lexapro, clonazepam, Lamictal, Seroquel, Elavil, Pristiq, Zyprexa. Substance use history: Remote history of alcohol abuse but she last use was 4 months ago), opiate use: Last use was with IV heroin a couple of days ago but states that prior use to that occasion was years ago. Crack cocaine use once a month last use was 3 days ago usually about $20 worth. Patient denies buying benzodiazepines on the street. Previous rehabilitation programs, last being in [place] 6 years ago, previous detox 6 years ago in [place] as well. Past medical history: COPD, hep C, GERD, chronic back pain Allergies: NKDA Social history: single, no children, domiciled alone, currently has family visiting, unemployed on disability benefits, highest education is high school degree, Mormonism, no history no axis to firearms. No legal history. Tobacco Use In Past 30 Days: 5 or More Cigarettes/Day Alcohol Use: Never Hospital Course Patient is a 61-year-old man, single, domiciled alone, unemployed on disability benefits, with a past psychiatric history of depression and anxiety, polysubstance use disorder, 1 previous psychiatric hospitalizations, no prior suicide attempts or self at his behavior, with a substance use history significant for crack cocaine, heroin, benzodiazepines, with a past medical history of COPD, hepatitis C, GRED, chronic neck pain, who was seen in the ED on 04/09/17 for altered mental status which is brought in by EMS for possible unintentional overdose with his home medications in the context of recent cocaine and heroin use and transferred to the inpatient psychiatry for further evaluation and management for adjustment of medications. Patient was admitted on a voluntary status and was started on sertraline 50mg PO daily, trazodone 100mg PO HS and titrated up to 150mg PO HS, and started on quetiapine 50mg PO daily and titrated up to 150mg PO HS. Patient was also started on CIWA protocol due to history of benzodiazepine abuse which he scored low and did not have significant clinical signs or symptoms of withdrawal. Patient continued to deny recent overdose as having been intentional but was able to recognize dependence with benzodiazepines with limited insight into polysubstance dependence despite motivational interviewing. Patient had endorsed anxiety and depression which have improved throughout admission with medication adjustments and supportive psychotherapy. Patient was noted to have stable mood, was calm and cooperative with staff, adherent to treatment. Patient denied any suicidal or homicidal ideation, no manic or psychotic symptoms elicited nor observed during hospital stay. Upon discharge, patient was noted to have good mood, future oriented and considering engaging in rehabilitation program after counseling regarding abstinence from substance use. Patient had complained of nausea and vomiting with weight loss which GI consult was requested by medical team. Patient had EGD/colonoscopy scheduled which he will be continued to be followed by medical team. Patient discharged from psychiatry service with plan for patient to continue treatment and outpatient follow up with mental health provider for continuity of care as well as referral for outpatient rehabilitation program. Patient agrees with plan. Results Blood Pressure 130 / 69 Vital Signs Date Time Temp Pulse Resp B/P (MAP) Pulse Ox O2 Delivery O2 Flow Rate FiO2 04/16/17 06:05 97.8 58 20 130/69 (89) 98 Laboratory Results Test 04/11/17 07:28 04/13/17 06:49 Cholesterol Level 150 MG/DL (120-200) HDL Cholesterol 51.6 MG/DL (40.0-60.0) LDL Cholesterol 82 MG/DL (0-99) Triglycerides Level 81 MG/DL (42-150) Hemoglobin A1c 5.0 % (4.3-6.0) Summary of Procedures EGD and colonoscopy Pending results at discharge: No Medications # of Antipsychotic meds at D/C: 1 Approp Antipsych med options 1 - Minimum of three failed multiple trials of monotherapy. 2 - Documented plan to taper to monotherapy due to previous use of multiple meds OR cross-taper in progress at D/C. 3 - Documentation of augmentation of Clozapine. 4 - Justification other than those listed in allowable values 1-3, document here : Discharge Discharge Date: Apr 16, 2017 Discharge Diagnosis: (1) Adjustment disorder with mixed anxiety and depressed mood ICD Code: F43.23 - Adjustment disorder with mixed anxiety and depressed mood (2) Polysubstance abuse ICD Code: F19.10 - Polysubstance abuse Status: Chronic Pt Condition on Discharge: Good Discharge Disposition: Trnsfr to Other Facility Discharge Instructions Diet Instructions: Heart Healthy Diet Activities you can perform: Regular-No Restrictions Scheduled Appointment: Dell Mcduffie Sanjana Appointment Date: Apr 18, 2017 Appointment Time: 07:30am Discharge Time > 30 minutes Mental Status Examination Appearance: Appropriate Consciousness: Alert Orientation: Person, Place, Date/Time Motor Activity: Abnormal gait Speech: Unremarkable Language: Adequate Fund of Knowledge: Inadequate Attention and Concentration: Adequate Memory: Impaired (surrounding events prior to his admission) Mood: Appropriate Affect: Appropriate Thought Process & Associations: Goal directed, Linear Thought Content: Appropriate Hallucination Type: None Delusion Type: None Suicidal Ideation: No Suicidal Plan: No Suicidal Intention: No Homicidal Ideation: No Homicidal Plan: No Homicidal Intention: No Insight: Fair Judgment: Impulsive Discharge/Advance Care Plan Health Problems: (1) Adjustment disorder with mixed anxiety and depressed mood (2) Polysubstance abuse Goals to promote your health * To prevent worsening of your condition and complications * To maintain your health at the optimal level Directions to meet your goals Take your medications as prescribed Follow your dietary instruction Follow activity as directed Keep your appointments as scheduled Take your immunizations and boosters as scheduled If your symptoms worsen call your PCP, if no PCP go to Urgent Care Center or Emergency Room For 11/11 questions related to your inpatient stay or results of tests pending at discharge, please contact Dr. Ousmane Amaral at Smoking is Dangerous to Your Health. Avoid second hand smoking Ousmane Amaral MD Apr 16, 2017 09:46
== END 2017-04-16 07:40 | disposition home or self-care (01) | DRG 882 ==
LOC: H4EA 16:54
PROVIDERS: ADMIT Student in an Organized Health Care Education/Training Program; ATTEND Student in an Organized Health Care Education/Training Program
DX: F43.23 Adjustment disorder with mixed anxiety and depressed mood (principal); F13.20 Sedative, hypnotic or anxiolytic dependence, uncomplicated; I10 Essential (primary) hypertension; F32.9 Major depressive disorder, single episode, unspecified; F41.9 Anxiety disorder, unspecified; G47.00 Insomnia, unspecified; F14.10 Cocaine abuse, uncomplicated; B19.20 Unspecified viral hepatitis C without hepatic coma; F17.210 Nicotine dependence, cigarettes, uncomplicated; G47.30 Sleep apnea, unspecified; G89.29 Other chronic pain; J44.9 Chronic obstructive pulmonary disease, unspecified; K21.9 Gastro-esophageal reflux disease without esophagitis; R11.2 Nausea with vomiting, unspecified; M54.2 Cervicalgia; R63.4 Abnormal weight loss; R47.02 Dysphasia; Z76.5 Malingerer [conscious simulation]; Z81.8 Family history of other mental and behavioral disorders; Z85.46 Personal history of malignant neoplasm of prostate
CPT/HCPCS: 80048; 80053; 80061; 82272; 83036; 83735; 84100; 84439; 84443; 85025

== ENCOUNTER → 2017-04-16 | Outpatient (CLI) | payer OTHER, MEDICAID ==
[~2017-04-16] MED LIST changes: -ALPR2TAB3 PO; -CLON.5 PO; -ESCI10TA PO; -HYDR-3366 PO; +LIDOCAINE HCL 1% PF 5 ML SYRINGE OTHER ONE; -OLAN10TA PO; +PHENYLEPH/NS 1000 MCG/10 ML SYR IV ONE; +PROPOFOL 200 MG/20 ML AMP IV ONE; +QUET1TAB8 PO; +ZOLO50TA PO; +ePHEDrine/NS 25 MG/5 ML SYRINGE IV ONE
--- NOTE | 2017-04-16 10:06 | GIPROC ---
[facility] [address] [facility]. [facility], [address] EGD PROCEDURE REPORT EXAM DATE: 04/16/2017 PATIENT NAME: Yahir Villeda MR #: [id number] BIRTHDATE: 1955 ATTENDING: Braxton Horne MD ORDER #: [id number] SUPERVISORY CIVIL ENGINEER: Krysta Sanchez and Flores Betancourt STATUS: outpatient INDICATIONS: The patient is a 61 yr old male here for an EGD due to anemia PROCEDURE PERFORMED: EGD w/ biopsy MEDICATIONS: None and Per Anesthesia. TOPICAL ANESTHETIC: CONSENT: The patient understands the risks and benefits of the procedure and understands that these risks include, but are not limited to: sedation, allergic reaction, infection, perforation and/or bleeding. Alternative means of evaluation and treatment include, among others: physical exam, x-rays, and/or surgical intervention. The patient elects to proceed with this endoscopic procedure. medical equipment was checked for proper function. Hand hygiene and appropriate measures for infection prevention was taken. After the risks, benefits and alternatives of the procedure were thoroughly explained, Informed consent was verified, confirmed and timeout was successfully executed by the treatment team. The patient was anesthetized with topical anesthesia and the Pentax [id number] endoscope was introduced through the mouth and advanced to the second portion of the duodenum. Retroflexion was performed and was normal The gastroscope was then slowly withdrawn and removed. ESOPHAGUS: There was LA Class A esophagitis noted. STOMACH: There was moderate and erosive gastritis in the gastric antrum. Multiple biopsies were performed using cold forceps. Sample sent for histology. DUODENUM: The duodenal mucosa appeared normal in the bulb and second portion of the duodenum. ADVERSE EVENTS: There were no complications. IMPRESSIONS: 1. There was LA Class A esophagitis noted 2. There was gastritis in the gastric antrum; multiple biopsies were performed 3. Normal duodenal mucosa in the bulb and second portion of the duodenum 4. Retroflexion was performed and was normal RECOMMENDATIONS: 1. Await biopsy results. Biopsy results will not be ready for 7-10 days. If you don't hear from us in two weeks, call our office for biopsy results. 2. Start PPI PATIENT CONDITION: stable DISPOSITION: Observation REPEAT EXAM: NONE Braxton Horne MD eSigned: Braxton Horne MD 04/16/2017 10:06 AM cc: PATIENT NAME: Yahir Villeda Huey MR#: [id number]
[2017-04-16 10:11] VITALS: TEMP 97.8
--- NOTE | 2017-04-16 10:12 | GIPROC ---
[facility] [address] [facility]. [facility], [address] COLONOSCOPY PROCEDURE REPORT EXAM DATE: 04/16/2017 PATIENT NAME: Yahir Villeda MR #: [id number] BIRTHDATE: 1955 ENDOSCOPIST: Braxton Horne MD ORDER #: [id number] AUDIT ANALYST: Krysta Sanchez and Flores Betancourt STATUS: outpatient INDICATIONS: The patient is a 61 yr old male here for a colonoscopy due to anemia, non-specific PROCEDURE PERFORMED: Colonoscopy with biopsy MEDICATIONS: None and Per Anesthesia. PREP QUALITY: poor PREP TYPE:GoLytely ESTIMATED BLOOD LOSS: None CONSENT: The patient understands the risks and benefits of the procedure and understands that these risks include, but are not limited to: sedation, allergic reaction, infection, perforation and/or bleeding. Alternative means of evaluation and treatment include, among others: physical exam, x-rays, and/or surgical intervention. The patient elects to proceed with this endoscopic procedure. medical equipment was checked for proper function. Hand hygiene and appropriate measures for infection prevention was taken. After the risks, benefits and alternatives of the procedure were thoroughly explained, Informed consent was verified, confirmed and timeout was successfully executed by the treatment team. A digital exam revealed external hemorrhoids The Pentax [id number] endoscope was introduced through the anus and advanced to the cecum, which was identified by both the appendix and ileocecal valve. The instrument was then slowly withdrawn as the colon was fully examined. COLON FINDINGS: Moderate diverticulosis was noted in the sigmoid colon. No bleeding was noted from the diverticulosis. A small smooth sessile polyp was found in the transverse colon. A polypectomy was performed with cold forceps. The resection was complete and the polyp tissue was completely retrieved. A polypoid shaped flat polyp ranging between 3-5mm in size was found in the sigmoid colon. A polypectomy was performed with cold forceps. The resection was complete and the polyp tissue was completely retrieved. Retroflexed views revealed internal hemorrhoids and Retroflexed views revealed medium internal hemorrhoids The scope was then completely withdrawn from the patient and the procedure terminated. PROCEDURE WITHDRAWAL TIME:9minutes ADVERSE EVENTS: There were no complications. IMPRESSIONS: 1. Moderate diverticulosis was noted in the sigmoid colon 2. A small sessile polyp was found in the transverse colon; polypectomy was performed with cold forceps 3. A flat polyp ranging between 3-5mm in size was found in the sigmoid colon; polypectomy was performed with cold forceps 4. Retroflexed views revealed internal and external hemorrhoids RECOMMENDATIONS: Await biopsy results. Biopsy results will not be ready for 7-10 days. If you don't hear from us in two weeks, call our office for results. RECALL: Return 3 years Colonoscopy Braxton Horne MD eSigned: Braxton Horne MD 04/16/2017 10:11 AM cc: PATIENT NAME: Yahir Villeda MR#: [id number]
[2017-04-16 10:50] VITALS: BP 125/74; PULSE 86; RESP 18; O2SAT 97
== END ==
LOC: HSDC 07:57
PROVIDERS: ATTEND Specialist
DX: D64.9 Anemia, unspecified (principal); K64.4 Residual hemorrhoidal skin tags; K57.90 Diverticulosis of intestine, part unspecified, without perforation or abscess without bleeding; D12.3 Benign neoplasm of transverse colon; D12.5 Benign neoplasm of sigmoid colon; K64.8 Other hemorrhoids; K20.9 Esophagitis, unspecified; K29.70 Gastritis, unspecified, without bleeding
CPT/HCPCS: 00740; 00810; 43239; 45380; J2370

== ENCOUNTER 2017-05-30 01:43 | Observation (INO) | payer OTHER, MEDICAID ==
[~2017-05-30] VITALS: Ht 160 cm; Wt 56.2 kg
[2017-05-30] VITALS (14 sets, daily range): BP systolic 128–201; BP diastolic 69–96; PULSE 50–82; RESP 18–20; TEMP 95.9–98.7; O2SAT 96–100
[~2017-05-30 01:43] MED LIST changes: -LIDOCAINE HCL 1% PF 5 ML SYRINGE OTHER ONE; -PHENYLEPH/NS 1000 MCG/10 ML SYR IV ONE; -PROPOFOL 200 MG/20 ML AMP IV ONE; -ePHEDrine/NS 25 MG/5 ML SYRINGE IV ONE
[2017-05-30] MEDS ORDERED: SODIUM CHLORIDE 0.9% FLUSH 10 ML FLUSH IVF PRN (02:00)
[2017-05-30] MEDS ORDERED: SODIUM CHLOR 0.9% 250 ML INJ 250 ML IV ONE ×2 (02:15→02:30)
[2017-05-30 02:18] LABS: AUTOMATED NEUTROPHIL # 6.1 TH/MM3 (1.8-7.7); BASOPHIL # 0.1 TH/MM3 (0-0.2); BASOPHIL % 1.4 % (0.0-2.0); EOSINOPHIL # 0.1 TH/MM3 (0-0.4); EOSINOPHIL % 1.3 % (0.0-4.0); HEMATOCRIT 44.3 % (39.0-51.0); HEMOGLOBIN 15.6 GM/DL (13.0-17.0); LYMPH % 25.4 % (9.0-44.0); LYMPHOCYTE # 2.4 TH/MM3 (1.0-4.8); MEAN CELL VOLUME 91.3 FL (80.0-100.0); MEAN CORPUSCULAR HGB CONC 35.1 % (32.0-36.0); MEAN PLATELET VOLUME 9.1 FL (7.0-11.0); MONO % 6.1 % (0.0-8.0); MONOCYTE # 0.6 TH/MM3 (0-0.9); NEUT % 65.8 % (16.0-70.0); PLATELET COUNT 256 TH/MM3 (150-450); RED BLOOD COUNT 4.85 MIL/MM3 (4.50-5.90); RED CELL DISTRIBUTION WIDTH 13.9 % (11.6-17.2); WHITE BLOOD COUNT 9.3 TH/MM3 (4.0-11.0)
--- NOTE | 2017-05-30 02:18 | RADRPT ---
EXAM DATE/TIME: 05/30/2017 02:01 [facility] COMPARISON: CT BRAIN W/O CONTRAST, April 09, 2017, 11:58. INDICATIONS : Altered mental status. RADIATION DOSE: 56.35 CTDIvol (mGy) MEDICAL HISTORY : Non-responsive. SURGICAL HISTORY : Non-responsive. ENCOUNTER: Initial ACUITY: 1 day PAIN SCALE: Non-responsive LOCATION: cranial TECHNIQUE: Multiple contiguous axial images were obtained of the head. Using automated exposure control and adj ustment of the mA and/or kV according to patient size, radiation dose was kept as low as reasonably a chievable to obtain optimal diagnostic quality images. DICOM format image data is available electro nically for review and comparison. FINDINGS: CEREBRUM: The ventricles are normal for age. No evidence of midline shift, mass lesion, hemorrhage or acute in farction. No extra-axial fluid collections are seen. POSTERIOR FOSSA: The cerebellum and brainstem are intact. The 4th ventricle is midline. The cerebellopontine angle i s unremarkable. EXTRACRANIAL: The visualized portion of the orbits is intact. SKULL: The calvaria is intact. No evidence of skull fracture. CONCLUSION: 1. No acute intracranial abnormalities. Jun Gibson MD on May 30, 2017 at 2:12 Board Certified Radiologist. This report was verified electronically.
[2017-05-30 02:30] LABS: PROTHROMBIN TIME - PATIENT 9.7 SEC (9.8-11.6)
[2017-05-30] MEDS ORDERED: LABETALOL HCL 100 MG/20 ML VIAL IV PUSH ONE (02:30)
[2017-05-30] MEDS ORDERED: cloNIDine HCL 0.1 MG TAB PO ONE (02:30)
--- NOTE | 2017-05-30 02:43 | RADRPT ---
EXAM DATE/TIME: 05/30/2017 02:18 [facility] COMPARISON: CHEST SINGLE AP, April 09, 2017, 12:20. INDICATIONS : Shortness of breath. Possible CVA. MEDICAL HISTORY : Hypertension. Cardiovascular disease Carcinoma, prostate.COPD , renal failure. SURGICAL HISTORY : None. ENCOUNTER: Initial ACUITY: 1 day PAIN SCORE: Non-responsive. LOCATION: chest FINDINGS: A single view of the chest demonstrates the lungs to be symmetrically aerated without evidence of mas s, infiltrate or effusion. The cardiomediastinal contours are unremarkable. Osseous structures are intact. CONCLUSION: 1. No acute findings. Fusion lower cervical spine. Jun Gibson MD on May 30, 2017 at 2:41 Board Certified Radiologist. This report was verified electronically.
[2017-05-30 02:47] LABS: ALKALINE PHOSPHATASE 146 U/L (45-117); TOTAL BILIRUBIN ADULT 0.4 MG/DL (0.2-1.0); TOTAL PROTEIN 8.1 GM/DL (6.4-8.2); TROPONIN I LESS THAN 0.02 NG/ML (0.02-0.05)
[2017-05-30 02:51] LABS: ALBUMIN 3.9 GM/DL (3.4-5.0); ALT (GPT) 53 U/L (12-78); AST (GOT) 34 U/L (15-37); BICARBONATE 31.4 MEQ/L (21.0-32.0); BLOOD UREA NITROGEN 5 MG/DL (7-18); CALCIUM 9.3 MG/DL (8.5-10.1); CHLORIDE 99 MEQ/L (98-107); CREATININE 1.05 MG/DL (0.60-1.30); GLOMERULAR FILTRATION RATE 72 ML/MIN (>89); GLUCOSE,RANDOM 103 MG/DL (74-106); SODIUM (NA) 135 MEQ/L (136-145)
[2017-05-30 03:09] LABS: BILIRUBIN, URINE NEG (NEG); BLOOD, URINE NEG (NEG); GLUCOSE,URINE NEG (NEG); KETONE, URINE NEG (NEG); NITRITE,URINE NEG (NEG); PH, URINE 6.5 (5.0-8.5); SQUAMOUS EPITHELIAL CELL URINE <1 /hpf (0-5); URINE COLOR YELLOW (YELLW/STRAW); URINE LEUKOCYTE ESTERASE NEG (NEG)
[2017-05-30] MEDS ORDERED: ESOM1CAP16 PO (03:14)
[2017-05-30] MEDS ORDERED: OLAN20TA PO (03:14)
--- NOTE | 2017-05-30 03:47 | PD ---
HPI . Neuro symptoms/deficits Chief Complaint: Neuro Symptoms/ Deficits Time Seen by Provider: 01:50 Travel History International Travel<30 days: No Contact w/Intl Traveler<30days: No Traveled to known affect area: No History of Present Illness HPI 61-year-old male presents with altered mental status, rightward gaze, headache since approximately 3:00 in the afternoon this past day. Patient notes headache is diffuse and mild to moderate. Cannot comment sudden onset or not. Denies fever. Limited historian PFSH Past Medical History Arthritis: Yes Asthma: No Autoimmune Disease: No Bipolar Disorder: Yes Anxiety: Yes Depression: Yes Heart Rhythm Problems: No Cancer: Yes (PROSTATE) Cardiac Catheterization: Yes Cardiovascular Problems: Yes High Cholesterol: No Chemotherapy: No Chest Pain: No Congestive Heart Failure: No COPD: Yes Cerebrovascular Accident: No Diabetes: No Diminished Hearing: No Diverticulitis: Yes Endocrine: No Gastrointestinal Disorders: Yes GERD: Yes Genitourinary: Yes Hiatal Hernia: No Hypertension: Yes Immune Disorder: No Kidney Stones: No Musculoskeletal: Yes Neurologic: Yes Psychiatric: Yes (Depression) Reproductive: No Respiratory: Yes (COPD) Migraines: No Radiation Therapy: No Renal Failure: Yes Seizures: No Sickle Cell Disease: No Sleep Apnea: Yes Thyroid Disease: No Ulcer: Yes Tetanus Vaccination: Unknown Past Surgical History Abdominal Surgery: Yes (gall bladder removed 2012) AICD: No Arteriovenous Shunt: No Cardiac Surgery: No Cholecystectomy: Yes Ear Surgery: No Endocrine Surgery: No Eye Surgery: No Genitourinary Surgery: Yes (prostate removal 2009) Gynecologic Surgery: No Insulin Pump: No Joint Replacement: No Oral Surgery: Yes (tooth extractions) Pacemaker: No Prostatectomy: Yes Thoracic Surgery: No Other Surgery: Yes (NECK/BACK SURGERY) Social History Alcohol Use: Yes Tobacco Use: Yes (2 PPD) Substance Use: Yes (COCAINE 3 DAYS AGO) Allergies-Medications (Allergen,Severity, Reaction): Coded Allergies: No Known Allergies (Verified Adverse Reaction, Unknown, 05/30/17) Reported Meds & Prescriptions Reported Meds & Active Scripts Active Trazodone (Trazodone HCl) 150 Mg Tablet 150 Mg PO HS 30 Days Zoloft (Sertraline HCl) 50 Mg Tab 50 Mg PO DAILY 30 Days Quetiapine (Quetiapine Fumarate) 100 Mg Tab 150 Mg PO HS 30 Days Reported Olanzapine 20 Mg Tab 20 Mg PO HS Esomeprazole DR 40 Mg Capdr 40 Mg PO DAILY Norvasc (Amlodipine Besylate) 10 Mg Tab 10 Mg PO DAILY Narrative Medication Allergies and medications reviewed Review of Systems ROS Limitations: Altered Mental Status, Poor Historian Except as stated in HPI: all other systems reviewed are Neg General / Constitutional: No: Fever, Chills Eyes: No: Diploplia, Visual changes HENT: Positive: Headaches, No: Neck Stiffness, Neck Pain Cardiovascular: No: Chest Pain or Discomfort Respiratory: No: Shortness of Breath Gastrointestinal: No: Abdominal Pain Genitourinary: No: Dysuria Musculoskeletal: Positive: Weakness, No: Pain Skin: No Rash Neurologic: Positive: Weakness, Focal Abnormalities, No: Dizziness, Syncope, Incontinence, Seizures, Sensory Disturbance Psychiatric: No: Depression Endocrine: No: Polydipsia Hematologic/Lymphatic: No: Easy Bruising Physical Exam Narrative GENERAL: Awake and slightly confused, GCS 14. Hypertensive 200/104 SKIN: Warm and dry. Color is normal no diaphoresis cyanosis or pallor HEAD: Atraumatic. Normocephalic. EYES: Pupils equal and round small at 2-3 mm reactive to light. No scleral icterus. No injection or drainage. No nystagmus ENT: No nasal bleeding or discharge. Mucous membranes pink and moist. NECK: Trachea midline. No JVD. CARDIOVASCULAR: Regular rate and rhythm. S1-S2 no murmurs rubs gallops RESPIRATORY: No accessory muscle use. Clear to auscultation. Breath sounds equal bilaterally. GASTROINTESTINAL: Abdomen soft, non-tender, nondistended. Hepatic and splenic margins not palpable. MUSCULOSKELETAL: Extremities without clubbing, cyanosis, or edema. No obvious deformities. NEUROLOGICAL: Awake and somewhat confused. GCS 14. Rightward gaze, patient can move across midline to left however. No hemineglect. Difficult exam patient able to move involuntarily bilateral. Patient has history of old CVA, unclear what is new and residual. PSYCHIATRIC: Pleasant and cooperative Data Data Last Documented VS Vital Signs Date Time Temp Pulse Resp B/P (MAP) Pulse Ox O2 Delivery O2 Flow Rate FiO2 05/30/17 02:40 60 18 100 Nasal Cannula 2.00 05/30/17 01:52 97.5 201/96 (131) Orders Orders Electrocardiogram (05/30/17 01:50) Prothrombin Time / Inr (Pt) (05/30/17 01:50) Act Partial Throm Time (Ptt) (05/30/17 01:50) Complete Blood Count With Diff (05/30/17 01:50) Comprehensive Metabolic Panel (05/30/17 01:50) Drug Screen, Random Urine (05/30/17 01:50) Troponin I (05/30/17 01:50) Urinalysis - C+S If Indicated (05/30/17 01:50) Ct Brain W/O Iv Contrast(Rout) (05/30/17 01:50) Chest, Single Ap (05/30/17 01:50) Ecg Monitoring (05/30/17 01:50) Iv Access Insert/Monitor (05/30/17 01:50) Oximetry (05/30/17 01:50) Blood Glucose (05/30/17 01:50) Sodium Chloride 0.9% Flush (Ns Flush) (05/30/17 02:00) Sodium Chlor 0.9% 250 Ml Inj (Ns 250 Ml (05/30/17 02:15) Sodium Chlor 0.9% 250 Ml Inj (Ns 250 Ml (05/30/17 02:30) Lorazepam Inj (Ativan Inj) (05/30/17 04:15) Haloperidol Inj (Haldol Inj) (05/30/17 04:15) Ammonia (05/30/17 04:38) Labs Laboratory Tests Test 05/30/17 02:00 05/30/17 03:00 05/30/17 04:45 White Blood Count 9.3 TH/MM3 Red Blood Count 4.85 MIL/MM3 Hemoglobin 15.6 GM/DL Hematocrit 44.3 % Mean Corpuscular Volume 91.3 FL Mean Corpuscular Hemoglobin 32.0 PG Mean Corpuscular Hemoglobin Concent 35.1 % Red Cell Distribution Width 13.9 % Platelet Count 256 TH/MM3 Mean Platelet Volume 9.1 FL Neutrophils (%) (Auto) 65.8 % Lymphocytes (%) (Auto) 25.4 % Monocytes (%) (Auto) 6.1 % Eosinophils (%) (Auto) 1.3 % Basophils (%) (Auto) 1.4 % Neutrophils # (Auto) 6.1 TH/MM3 Lymphocytes # (Auto) 2.4 TH/MM3 Monocytes # (Auto) 0.6 TH/MM3 Eosinophils # (Auto) 0.1 TH/MM3 Basophils # (Auto) 0.1 TH/MM3 CBC Comment DIFF FINAL Differential Comment Prothrombin Time 9.7 SEC Prothromb Time International Ratio 1.0 RATIO Activated Partial Thromboplast Time 26.7 SEC Blood Urea Nitrogen 5 MG/DL Creatinine 1.05 MG/DL Random Glucose 103 MG/DL Total Protein 8.1 GM/DL Albumin 3.9 GM/DL Calcium Level 9.3 MG/DL Alkaline Phosphatase 146 U/L Aspartate Amino Transf (AST/SGOT) 34 U/L Alanine Aminotransferase (ALT/SGPT) 53 U/L Total Bilirubin 0.4 MG/DL Sodium Level 135 MEQ/L Potassium Level 4.7 MEQ/L Chloride Level 99 MEQ/L Carbon Dioxide Level 31.4 MEQ/L Anion Gap 5 MEQ/L Estimat Glomerular Filtration Rate 72 ML/MIN Troponin I LESS THAN 0.02 NG/ML Urine Color YELLOW Urine Turbidity CLEAR Urine pH 6.5 Urine Specific [place] 1.006 Urine Protein NEG mg/dL Urine Glucose (UA) NEG mg/dL Urine Ketones NEG mg/dL Urine Occult Blood NEG Urine Nitrite NEG Urine Bilirubin NEG Urine Urobilinogen LESS THAN 2.0 MG/DL Urine Leukocyte Esterase NEG Urine RBC 1 /hpf Urine Squamous Epithelial Cells <1 /hpf Microscopic Urinalysis Comment CATH-CULT NOT IND Urine Opiates Screen NEG Urine Barbiturates Screen NEG Urine Amphetamines Screen NEG Urine Benzodiazepines Screen POS Urine Cocaine Screen NEG Urine Cannabinoids Screen NEG Ammonia 12 MCMOL/L MDM Medical Decision Making Medical Screen Exam Complete: Yes Emergency Medical Condition: Yes Medical Record Reviewed: Yes Differential Diagnosis CVA, hypertensive urgency, acute on chronic CVA Narrative Course CT head normal. No acute other maladies noted by radiology. IV established, patient given 250 cc normal saline fluid bolus 2 with improvement in symptomatology slightly. Patient became more responsive and alert. Patient still notes headache After receiving approximately 500 cc normal saline IV fluid bolus, patient regained full consciousness, sat up in bed and became very combative and argumentative. Moving all 4 extremities, no preferential gaze. Patient's baseline mental status not known, probable dementia. Diagnosis Primary Impression: Altered mental status Qualified Codes: R41.0 - Disorientation, unspecified Admitting Information Admitting Physician Requests: Observation Sergio Bullock MD May 30, 2017 03:47
[2017-05-30] MEDS ORDERED: LORazepam 2 MG/ML VIAL IM ONE (04:15)
[2017-05-30] MEDS ORDERED: HALOPERIDOL LACTATE 5 MG/ML AMP IM ONE (04:15)
[2017-05-30] MEDS ORDERED: SODIUM CHLORIDE 0.9% FLUSH 10 ML FLUSH IV FLUSH PRN (06:15)
[2017-05-30] MEDS ORDERED: GLUCAGON 1 MG/ML VIAL OTHER PRN (06:15)
[2017-05-30] MEDS ORDERED: DEXTROSE 50% IN WATER 50 ML VIAL(D50) IV PUSH PRN (06:15)
[2017-05-30] MEDS: INSULIN ASPART SUPPLEMENTAL SCALE SQ SCH ×4 (08:00→21:18)
[2017-05-30] MEDS: ASPIRIN 325 MG TAB PO SCH (09:00)
--- NOTE | 2017-05-30 09:18 | HHI.HP ---
[facility] Service [place] [facility] Primary Care Physician Lei Cochran, Admission Diagnosis TIA/CVA/AMS Diagnoses: Chief Complaint: AMS Travel History International Travel<30 Days: No Contact w/Intl Traveler <30 Da: No Traveled to Known Affected Are: No History of Present Illness 61-year-old male with medical history of arthritis, bipolar disorder, anxiety, depression, prostate cancer s/p prostatectomy, COPD, GERD, HTN, presents via EVAC with altered mental status, rightward gaze, headache, that started around 3pm on 05/29/17. Per ER MD note, the patient complained of headache but was an extremely poor historian and history was limited at that time. He was given IVF boluses, became more responsive and alert, sat up in bed, became very combative and argumentative, moving all 4 extremities. He was given IM ativan and IM Haldol at 6am this morning due to agitation. The patient is now seen in the observation unit. He only opens his eyes to voice, appeared to make eye contact , then looked away. He will not answer any questions or follow any commands. RN reports the patient has been in this state since his arrival to the observation unit this morning. Attempted to call patient's brother Fran Villeda in [place] , listed as the patient's next of kin, however no answer x2 attempts. It is unclear if the patient came from a home or senior living. No documentation available in the chart. Most of the history obtained from EMR. Review of Systems ROS Limitations: Altered Mental Status, Unresponsive Past Family Social History Past Medical History Per EMR: arthritis bipolar disorder anxiety depression prostate cancer s/p prostatectomy COPD GERD HTN Diverticulosis Past Surgical History Per EMR: cholecystectomy prostatectomy dental extractions neck/back surgeries Reported Medications Trazodone (Trazodone HCl) 150 Mg Tablet 150 Mg PO HS 30 Days Zoloft (Sertraline HCl) 50 Mg Tab 50 Mg PO DAILY 30 Days Quetiapine (Quetiapine Fumarate) 100 Mg Tab 150 Mg PO HS 30 Days Olanzapine 20 Mg Tab 20 Mg PO HS Esomeprazole DR 40 Mg Capdr 40 Mg PO DAILY Norvasc (Amlodipine Besylate) 10 Mg Tab 10 Mg PO DAILY Allergies: Coded Allergies: No Known Allergies (Verified Allergy, Unknown, 05/30/17) Active Ordered Medications Current Medications Medications (Trade) Dose Ordered Sig/Diamond Route Start Time Stop Time Status Last Admin (NS Flush) 2 ml BID IV FLUSH 05/30/17 09:00 (NS Flush) 2 ml UNSCH PRN IV FLUSH 05/30/17 06:15 (Aspirin) 325 mg DAILY PO 05/30/17 09:00 (NovoLOG SUPPLEMENTAL SCALE) 1 ACHS SQ 05/30/17 08:00 (D50w (Vial) Inj) 50 ml UNSCH PRN IV PUSH 05/30/17 06:15 (Glucagon Inj) 1 mg UNSCH PRN OTHER 05/30/17 06:15 (Heparin Inj) 5,000 units Q12HR SQ 05/30/17 09:00 Family History Unable to obtain Social History Unable to obtain from patient, however per EMR: smokes tobacco 1/2 PPD +alcohol use reportedly recent illicit drug use with cocaine however UDS only positive for benzos Physical Exam Vital Signs Vital Signs Date Time Temp Pulse Resp B/P (MAP) Pulse Ox O2 Delivery O2 Flow Rate FiO2 05/30/17 08:16 95.9 54 20 157/77 (103) 98 05/30/17 07:40 05/30/17 06:00 50 18 134/69 (90) 97 Room Air 05/30/17 05:00 69 20 142/78 (99) 98 Room Air 05/30/17 04:00 56 20 164/89 (114) 100 Nasal Cannula 2.00 05/30/17 03:00 70 20 134/90 (105) 100 Nasal Cannula 2.00 05/30/17 02:40 60 18 100 Nasal Cannula 2.00 05/30/17 02:00 70 20 178/93 (121) 100 Nasal Cannula 2.00 05/30/17 01:52 97.5 80 18 201/96 (131) 96 Physical Exam GENERAL: Well-nourished, well-developed male patient in NAD. SKIN: Warm and dry. No rash. HEAD: Normocephalic. Atraumatic. EYES: Pupils equal and round. No scleral icterus. No injection or drainage. ENT: No nasal bleeding or discharge. Mucous membranes pink and moist. NECK: Supple. Trachea midline. CARDIOVASCULAR: Regular rate and rhythm. S1, S2 noted. No murmur appreciated. RESPIRATORY: No accessory muscle use. Clear to auscultation. Breath sounds equal bilaterally. GASTROINTESTINAL: Abdomen soft, non-tender, nondistended. Normoactive bowel sounds x4. MUSCULOSKELETAL: No obvious deformities. Extremities without clubbing, cyanosis , or edema. IV site at right aceves. NEUROLOGICAL: Nonresponsive. Opens eyes to voice, but does not follow commands and will not answer questions. Laboratory Laboratory Tests Test 05/30/17 02:00 05/30/17 03:00 05/30/17 04:45 White Blood Count 9.3 Red Blood Count 4.85 Hemoglobin 15.6 Hematocrit 44.3 Mean Corpuscular Volume 91.3 Mean Corpuscular Hemoglobin 32.0 Mean Corpuscular Hemoglobin Concent 35.1 Red Cell Distribution Width 13.9 Platelet Count 256 Mean Platelet Volume 9.1 Neutrophils (%) (Auto) 65.8 Lymphocytes (%) (Auto) 25.4 Monocytes (%) (Auto) 6.1 Eosinophils (%) (Auto) 1.3 Basophils (%) (Auto) 1.4 Neutrophils # (Auto) 6.1 Lymphocytes # (Auto) 2.4 Monocytes # (Auto) 0.6 Eosinophils # (Auto) 0.1 Basophils # (Auto) 0.1 CBC Comment DIFF FINAL Differential Comment Prothrombin Time 9.7 Prothromb Time International Ratio 1.0 Activated Partial Thromboplast Time 26.7 Blood Urea Nitrogen 5 Creatinine 1.05 Random Glucose 103 Total Protein 8.1 Albumin 3.9 Calcium Level 9.3 Alkaline Phosphatase 146 Aspartate Amino Transf (AST/SGOT) 34 Alanine Aminotransferase (ALT/SGPT) 53 Total Bilirubin 0.4 Sodium Level 135 Potassium Level 4.7 Chloride Level 99 Carbon Dioxide Level 31.4 Anion Gap 5 Estimat Glomerular Filtration Rate 72 Troponin I LESS THAN 0.02 Urine Color YELLOW Urine Turbidity CLEAR Urine pH 6.5 Urine Specific [place] 1.006 Urine Protein NEG Urine Glucose (UA) NEG Urine Ketones NEG Urine Occult Blood NEG Urine Nitrite NEG Urine Bilirubin NEG Urine Urobilinogen LESS THAN 2.0 Urine Leukocyte Esterase NEG Urine RBC 1 Urine Squamous Epithelial Cells <1 Microscopic Urinalysis Comment CATH-CULT NOT IND Urine Opiates Screen NEG Urine Barbiturates Screen NEG Urine Amphetamines Screen NEG Urine Benzodiazepines Screen POS Urine Cocaine Screen NEG Urine Cannabinoids Screen NEG Ammonia 12 Result Diagram: 05/30/1719905/30/17199 Imaging Last Impressions Head CT 05/30/17149 Signed Impressions: Service Date/Time: Tuesday, May 30, 2017 02:01 - CONCLUSION: 1. No acute intracranial abnormalities. Jun Gibson MD Chest X-Ray 05/30/17149 Signed Impressions: Service Date/Time: Tuesday, May 30, 2017 02:18 - CONCLUSION: 1. No acute findings. Fusion lower cervical spine. Jun Gibson MD Carotid Artery Ultrasound 05/30/17 0000 Signed Impressions: Service Date/Time: Tuesday, May 30, 2017 08:27 - CONCLUSION: 1. Minimal calcified plaquing in both carotid bulbs. 2. However, no sonographic or Doppler findings of a hemodynamically significant stenosis. Antegrade flow in both vertebrals. Walter Rosario MD [place] VTE Risk Assessment Caprini VTE Risk Assessment: Mod/High Risk (score >= 2) Caprini Risk Assessment Model Point Value = 1 Point Value = 2 Point Value = 3 Point Value = 5 Age 41-60 Minor surgery BMI > 25 kg/m2 Swollen legs Varicose veins or History of unexplained or recurrent spontaneous Oral contraceptives or hormone replacement Sepsis (< 1 month) Serious lung disease, including pneumonia (< 1 month) Abnormal pulmonary function Acute myocardial infarction Congestive heart failure (< 1 month) History of inflammatory bowel disease Medical patient at bed rest Age 61-74 Arthroscopic surgery Major open surgery (> 45 min) Laparoscopic surgery (> 45 min) Malignancy Confined to bed (> 72 hours) Immobilizing plaster cast Central venous access Age >= 75 History of VTE Family history of VTE Factor V Leiden Prothrombin [id number] Lupus anticoagulant Anticardiolipin antibodies Elevated serum homocysteine Heparin-induced thrombocytopenia Other congenital or acquired thrombophilia Stroke (< 1 month) Elective arthroplasty Hip, pelvis, or leg fracture Acute spinal cord injury (< 1 month) Prophylaxis Regimen Total Risk Factor Score Risk Level Prophylaxis Regimen 0-1 Low Early ambulation 2 Moderate Order ONE of the following: *Sequential Compression Device (SCD) *Heparin 5000 units SQ BID 3-4 Higher Order ONE of the following medications: *Heparin 5000 units SQ TID *Enoxaparin/Lovenox 40 mg SQ daily (WT < 150 kg, CrCl > 30 mL/min) *Enoxaparin/Lovenox 30 mg SQ daily (WT < 150 kg, CrCl > 10-29 mL/min) *Enoxaparin/Lovenox 30 mg SQ BID (WT < 150 kg, CrCl > 30 mL/min) AND/OR *Sequential Compression Device (SCD) 5 or more Highest Order ONE of the following medications: *Heparin 5000 units SQ TID (Preferred with Epidurals) *Enoxaparin/Lovenox 40 mg SQ daily (WT < 150 kg, CrCl > 30 mL/min) *Enoxaparin/Lovenox 30 mg SQ daily (WT < 150 kg, CrCl > 10-29 mL/min) *Enoxaparin/Lovenox 30 mg SQ BID (WT < 150 kg, CrCl > 30 mL/min) AND *Sequential Compression Device (SCD) Assessment and Plan Assessment and Plan 61-year-old male with medical history of arthritis, bipolar disorder, anxiety, depression, prostate cancer s/p prostatectomy, COPD, GERD, HTN, presents via EVAC with altered mental status, rightward gaze, headache, that started around 3pm on 05/29/17. Acute Encephalopathy: unclear etiology, rule out TIA/CVA. Difficult to assess currently as patient is s/p IM Haldol/Ativan. UA negative. CXR images reviewed and unremarkable. Afebrile. No leukocytosis. Ammonia wnl. -UDS positive for benzos -Head CT images reviewed, no acute findings -Carotid U/S with minimal calcified plaquing in both carotids; however no hemodynamically significant stenosis. -Given full strength aspirin -Check brain MRI/MRA -NIHSS, neuro checks, fall precautions, monitor on telemetry -Consult neurology -Consult PT -If above work up unremarkable, consider psychiatry evaluation, possible catatonia? Bipolar Disorder/Anxiety/Depression: with recent admission to inpatient psychiatry 04/10-04/16 -unclear if patient is taking medications, will restart zyprexa, seroquel, and zoloft -consider psychiatry consult if no improvement Hypertension: chronic -continue patient's norvasc 10mg daily DVT Prophylaxis: heparin sq Code Status Full Code Discussed Condition With Crystal Khan RN, PA-C May 30, 2017 9:18 am
--- NOTE | 2017-05-30 09:52 | RADRPT ---
EXAM DATE/TIME: 05/30/2017 08:27 [facility] COMPARISON: No previous studies available for comparison. INDICATIONS : Transischemic attack. MEDICAL HISTORY : HTN. COPD. Cardiac disorders. GERD. Renal failure. Prostate cancer. SURGICAL HISTORY : Cholecystectomy. Prostatectomy. Neck and back surgery. Cardiac catheterization. ENCOUNTER: Initial ACUITY: 2 days PAIN SCORE: 0/10 LOCATION: Bilateral neck PEAK SYSTOLIC VELOCITIES (cm/sec): ICA/CCA RATIO: Right: 1.2 Left: 1.0 ICA: Right: 64 Left: 61 CCA: Right: 55 Left: 61 ECA: Right: 48 Left: 40 VERTEBRAL: Right: 29 antegrade Left: 56 antegrade Elevated flow velocities and ICA/CCA ratios have been found to correlate with increased degrees of vessel stenosis, calculated as percentage of diameter relative to a normal segment of distal ICA/CCA FINDINGS: RIGHT CAROTID: Minimal calcified plaquing in the bulb. The waveforms are within normal limits. LEFT CAROTID: Minimal calcified plaquing in the bulb. The waveforms are within normal limits. VERTEBRAL ARTERIES: Antegrade flow is seen in both vertebral arteries. MISCELLANEOUS: None. CONCLUSION: 1. Minimal calcified plaquing in both carotid bulbs. 2. However, no sonographic or Doppler findings of a hemodynamically significant stenosis. Antegrade f low in both vertebrals. Walter Rosario MD on May 30, 2017 at 9:47 Board Certified Radiologist. This report was verified electronically.
[2017-05-30] MEDS: SODIUM CHLORIDE 0.9% FLUSH 10 ML FLUSH IV FLUSH SCH ×2 (12:01→21:19)
[2017-05-30] MEDS: HEPARIN SODIUM - SQ 10,000 UNITS/ML VIAL SQ SCH ×2 (12:02→21:18)
[2017-05-30] MEDS ORDERED: PILL SPLITTER OTHER PRN (12:30)
--- NOTE | 2017-05-30 13:24 | MB ---
cc: MARCELLA ALEXANDER M.D. DATE OF CONSULTATION 05/30/2017 DATE OF 1955 REASON FOR CONSULTATION Possible TIA. HISTORY OF PRESENT ILLNESS The patient is a 61-year-old man. History is taken from the chart. He does not know how he got here and why. Apparently he has a history of bipolar, anxiety, depression, arthritis, cancer of the prostate, prostatectomy, hypertension, reflux, COPD, who came in altered. Per chart note, he had a dazed headache, but currently is not complaining of a headache. Poor historian stating that his chest hurts on the right side when you touch it. He denies falling down. He denies hurting himself. He states he does not live alone. He has some people staying with him. I am not sure how accurate that is. Apparently in the ED, he had some IV fluids and was given some Ativan and Haldol due to agitation. Staff had tried to call his brother in [place], but there was no answer. HOME MEDICINES Per chart: 1. Trazodone 2. Zoloft 3. Seroquel 4. Olanzapine 5. Esomeprazole 6. Norvasc ALLERGIES None reported. SOCIAL HISTORY Unable to obtain truly. There may be some alcohol and tobacco use. PHYSICAL EXAM On exam, vitals temperature is 98, heart rate 55, respiratory rate 18, blood pressure 158/77. NECK: Supple. HEART: Regular. NEUROLOGIC: He is awake and alert. He does look at examiner, but he has poor eye contact. Pupils are reactive. His speech is hypophonic. His face is symmetrical. Tone is intact. Motor hoyos he seems to move everything withdraws to noxious stimulation. LABORATORY DATA Does not follow cerebellar or gait. LABORATORY DATA CBC is normal today. Coag panel 9.7 PT. Chemistries sodium 135, GFR 72, alk phos 146. Toxicology was positive for benzos on this admission. In March, it was positive also for cocaine. IMAGING STUDIES CT head, no acute pathology. Chest x-ray, no acute findings. Carotid ultrasound shows minimal plaque in both lobes, but nothing significant. IMPRESSION Change in mental status, unknown etiology at this point in time. Now he will undergo an MRI of the brain, and MRA. If he has not had an echo, that should be done. Consider an EEG if he continues to be confused. Get him out of bed with physical therapy and ambulate him. Psychiatry consult may be warranted as well. MD SIMEON Tinsley/LASHONDA /12:18 PM /1:04 PM
--- NOTE | 2017-05-30 14:45 | EKG ---
Date Performed: 05/30/2017 Time Performed: 02:11:12 PTAGE: 61 years EKG: Sinus rhythm WITH SHORT MD INTERVAL Since previous tracing, no significant change noted BORDERLINE ECG PREVIOUS TRACING : 04/09/2017 11.39 DOCTOR: Sadaf Rodas Interpretating Date/Time 05/30/2017 14:42:39
--- NOTE | 2017-05-30 15:09 | RADRPT ---
EXAM DATE/TIME: 05/30/2017 13:47 [facility] COMPARISON: No previous studies available for comparison. INDICATIONS : Altered mental status. MEDICAL HISTORY : Chronic obstructive pulmonary disease. Hypertension. SURGICAL HISTORY : Prostatectomy. Cholecystectomy. Fusion, cervical. ENCOUNTER: Initial ACUITY: 2 day PAIN SCORE: 0/10 LOCATION: Head Please note a normal MRA of the brain does not entirely exclude the possibility of a small aneurysm, nor the possibility of distal intracranial vessel disease. TECHNIQUE: 3D time of flight MRA was performed. Source images, multiplanar STS MIP, and 3D volume MIP reconstru ctions were reviewed. FINDINGS: There is excellent visualization of the major intracranial arteries out to the second-order branch ve ssels. There is no evidence for aneurysm, vessel truncation or stenosis, and no evidence for vascula r malformation. 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 However, the right intercerebral melania ry receives dominant supply from widely patent anterior communicating artery. 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 CONCLUSION: 1. Anatomic variant of the [place] as above. 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 2. Otherwise, intracranial vessels are all patent without evidence of disease. Walter Rosario MD on May 30, 2017 at 15:04 Board Certified Radiologist. This report was verified electronically.
--- NOTE | 2017-05-30 15:29 | RADRPT ---
EXAM DATE/TIME: 05/30/2017 13:47 [facility] COMPARISON: CT BRAIN W/O CONTRAST, May 30, 2017, 2:01. INDICATIONS : Altered mental status. MEDICAL HISTORY : Chronic obstructive pulmonary disease. Hypertension. SURGICAL HISTORY : Cholecystectomy. Fusion, cervical. Prostatectomy. ENCOUNTER: Initial ACUITY: 1 day PAIN SCORE: 0/10 LOCATION: cranial TECHNIQUE: Multiplanar, multisequence MRI of the brain was performed without contrast. FINDINGS: CEREBRUM: The ventricles are normal for age. Minimal, symmetric cortical atrophy. No evidence of midline shift , mass lesion, hemorrhage or acute infarction. No extraaxial fluid collections are seen. The pituit irma gland and suprasellar cistern are normal in configuration. WHITE MATTER: No significant signal abnormalities are seen in the white matter. POSTERIOR FOSSA: The cerebellum and brainstem are intact. The 4th ventricle is midline. The cerebellopontine angle is unremarkable. The cerebellar tonsils are normal in position. DIFFUSION IMAGING: No focal areas of restricted diffusion are seen. No evidence of acute infarction. EXTRACRANIAL: The visualized portions of the orbits and paranasal sinuses are unremarkable. CONCLUSION: Minimal, symmetric cortical atrophy. Otherwise negative.. Walter Rosario MD on May 30, 2017 at 15:07 Board Certified Radiologist. This report was verified electronically.
[2017-05-30 16:17] LABS: HEMOGLOBIN A1C 5.2 % (4.3-6.0)
--- NOTE | 2017-05-30 18:20 | PD.PSY.CON ---
Provisional Diagnosis Admission Date May 30, 2017 at 06:08 [place]. Delirium secondary to benzodiazpine overdose; benzodiazepine use disorder History of Present Illness Service Psychiatry Consult Requested By Dr. De La Paz Reason for Consult AMS Primary Care Physician Lei Cochran, DO HPI Patient is a 61-year-old man, single, domiciled with extended family, unemployed on disability benefits, with a past psychiatric history of depression and anxiety, polysubstance use disorder, two previous psychiatric hospitalizations, no prior suicide attempts or self at his behavior, with a substance use history significant for crack cocaine, heroin, benzodiazepines abuse, with a past medical history of COPD, hepatitis C, GRED, chronic neck pain , who was seen in the ED on 04/09/17 for altered mental status which is brought in by EMS for possible unintentional overdose with his home medications and transferred to the inpatient psychiatry and discharged on 04/10/17 which he presents today for altered mental status and admitted to the medical service for acute encephalopathy which psychiatry was consulted for evaluation for the same. Patient was found lying on hospital bed, calm and cooperative with interview. Patient is found to be alert and oriented to person, place and date but not to situation. He has some difficulty with recalling the events that brought him into the hospital but was able to report having woken up this morning and speaking to his nieceSofie, and remember that she was afraid for him but wasnt able to recall the specific reason why. He states that he remembers being brought by EMS and waking up in the hospital. Patient reports that he has been having some depressive symptoms such as disturbed sleep, energy and concentration but denies having any suicidal ideations or thoughts of self harm. Patient reports that he was continued to be prescribed Xanax 2mg which he takes twice per day but denied overusing his medications but later admitted to probably having taken more than prescribed; not to end his life but because he reports having difficulty with sleep. He mentions that he was previously followed by hospice service, [facility], whom had prescribed him Xanax 2mg BID recently and also reporting that they have recently discontinued service. Patient at this time reports feeling tired denies suicidal or homicidal ideation, denies any perceptual disturbances with rest of psychiatric ROS negative and no delusional material elicited. Collateral information obtained from patients nieceSofie Montrell ), contacted via telephone and states that the patient habitually overtakes his medications and that this is the third time. She states that he continues to take more of his medications than prescribed to help him sleep and feels that afraid that the patient may accidently overdose due to his tendency to abuse his medications. She expresses concern of his ongoing overuse of his medications. Family psychiatric history: Mother with depression, denies any known suicides in the family. Past psychiatric history: Previous psychiatric diagnoses of depression, anxiety , polysubstance use disorder (benzodiazepines, cocaine, heroin) two previous psychiatric hospitalization here [place] in 03/2017 and 2011, no previous suicide attempt or self-injurious behavior. Patient has no current outpatient psychiatrist as patient did not follow up post discharge from last hospitalization. Patient reports prior medication trials include Lexapro, clonazepam, Lamictal, Seroquel, Elavil, Pristiq, Zyprexa with most recent regimen to include sertraline, trazodone and quetiapine. Substance use history: history of alcohol abuse (last use was 7 months ago), opiate use: Last use was with IV heroin months ago. Crack cocaine use once a month last use was months ago. Patient denies buying benzodiazepines on the street but as stated in HPI is being prescribed this. Previous rehabilitation programs, last being in [place] 6 years ago, previous detox 6 years ago in [place] as well. Past medical history: COPD, hep C, GERD, chronic back pain Allergies: NKDA Social history: single, no children, domiciled alone, currently has family visiting, unemployed on disability benefits, highest education is high school degree, Nondenominational, no history no access to firearms. No legal history. Past Family Social History Coded Allergies: No Known Allergies (Verified Allergy, Unknown, 05/30/17) Active Scripts Trazodone (Trazodone) 150 Mg Tablet, 150 MG PO HS for health for 30 Days, #30 TAB 0 Refills Prov:Ousmane Amaral MD 04/16/17 Sertraline (Zoloft) 50 Mg Tab, 50 MG PO DAILY for health for 30 Days, #30 TAB Prov:Ousmane Amaral MD 04/16/17 Quetiapine (Quetiapine) 100 Mg Tab, 150 MG PO HS for health for 30 Days, #45 TAB Prov:Ousmane Amaral MD 04/16/17 Reported Medications Olanzapine (Olanzapine) 20 Mg Tab, 20 MG PO HS, #30 TAB 0 Refills 05/30/[address] (Esomeprazole DR) 40 Mg Capdr, 40 MG PO DAILY, #30 CAP 0 Refills 05/30/17 Amlodipine (Norvasc) 10 Mg Tab, 10 MG PO DAILY for Blood Pressure Management, TAB 0 Refills 08/08/16 Current Medications Medications (Trade) Dose Ordered Sig/Diamond Route Start Time Stop Time Status Last Admin (NS Flush) 2 ml BID IV FLUSH 05/30/17 09:00 05/30/17 12:01 (NS Flush) 2 ml UNSCH PRN IV FLUSH 05/30/17 06:15 (Aspirin) 325 mg DAILY PO 05/30/17 09:00 (NovoLOG SUPPLEMENTAL SCALE) 1 ACHS SQ 05/30/17 08:00 (D50w (Vial) Inj) 50 ml UNSCH PRN IV PUSH 05/30/17 06:15 (Glucagon Inj) 1 mg UNSCH PRN OTHER 05/30/17 06:15 (Heparin Inj) 5,000 units Q12HR SQ 05/30/17 09:00 05/30/17 12:02 (Norvasc) 10 mg DAILY PO 05/31/17 09:00 (SEROquel) 150 mg HS PO 05/30/17 21:00 (Zoloft) 50 mg DAILY PO 05/31/17 09:00 (Desyrel) 150 mg HS PO 05/30/17 21:00 (Pill Splitter) 1 ea UNSCH PRN OTHER 05/30/17 12:30 Physical Exam Vital Signs Vital Signs Date Time Temp Pulse Resp B/P (MAP) Pulse Ox O2 Delivery O2 Flow Rate FiO2 05/30/17 16:30 63 05/30/17 12:47 98.7 18 128/81 (97) 98 05/30/17 06:00 Room Air 05/30/17 04:00 2.00 I/O 05/30/17 05/30/17 05/31/17 08:00 16:00 00:00 Intake Total 500 ml Output Total 410 ml Balance 500 ml -410 ml Lab Results Test 05/30/17 02:00 05/30/17 03:00 05/30/17 04:45 05/30/17 12:40 White Blood Count 9.3 TH/MM3 Red Blood Count 4.85 MIL/MM3 Hemoglobin 15.6 GM/DL Hematocrit 44.3 % Mean Corpuscular Volume 91.3 FL Mean Corpuscular Hemoglobin 32.0 PG Mean Corpuscular Hemoglobin Concent 35.1 % Red Cell Distribution Width 13.9 % Platelet Count 256 TH/MM3 Mean Platelet Volume 9.1 FL Neutrophils (%) (Auto) 65.8 % Lymphocytes (%) (Auto) 25.4 % Monocytes (%) (Auto) 6.1 % Eosinophils (%) (Auto) 1.3 % Basophils (%) (Auto) 1.4 % Neutrophils # (Auto) 6.1 TH/MM3 Lymphocytes # (Auto) 2.4 TH/MM3 Monocytes # (Auto) 0.6 TH/MM3 Eosinophils # (Auto) 0.1 TH/MM3 Basophils # (Auto) 0.1 TH/MM3 CBC Comment DIFF FINAL Differential Comment Prothrombin Time 9.7 SEC Prothromb Time International Ratio 1.0 RATIO Activated Partial Thromboplast Time 26.7 SEC Blood Urea Nitrogen 5 MG/DL Creatinine 1.05 MG/DL Random Glucose 103 MG/DL Total Protein 8.1 GM/DL Albumin 3.9 GM/DL Calcium Level 9.3 MG/DL Alkaline Phosphatase 146 U/L Aspartate Amino Transf (AST/SGOT) 34 U/L Alanine Aminotransferase (ALT/SGPT) 53 U/L Total Bilirubin 0.4 MG/DL Sodium Level 135 MEQ/L Potassium Level 4.7 MEQ/L Chloride Level 99 MEQ/L Carbon Dioxide Level 31.4 MEQ/L Anion Gap 5 MEQ/L Estimat Glomerular Filtration Rate 72 ML/MIN Hemoglobin A1c 5.2 % Troponin I LESS THAN 0.02 NG/ML LESS THAN 0.02 NG/ML Urine Color YELLOW Urine Turbidity CLEAR Urine pH 6.5 Urine Specific [place] 1.006 Urine Protein NEG mg/dL Urine Glucose (UA) NEG mg/dL Urine Ketones NEG mg/dL Urine Occult Blood NEG Urine Nitrite NEG Urine Bilirubin NEG Urine Urobilinogen LESS THAN 2.0 MG/DL Urine Leukocyte Esterase NEG Urine RBC 1 /hpf Urine Squamous Epithelial Cells <1 /hpf Microscopic Urinalysis Comment CATH-CULT NOT IND Urine Opiates Screen NEG Urine Barbiturates Screen NEG Urine Amphetamines Screen NEG Urine Benzodiazepines Screen POS Urine Cocaine Screen NEG Urine Cannabinoids Screen NEG Ammonia 12 MCMOL/L Mental Status Examination Appearance: Appropriate Consciousness: Alert Orientation: Person, Place, Date/Time Speech: Unremarkable Language: Adequate Fund of Knowledge: Inadequate Attention and Concentration: Adequate Memory: Impaired (from recent events that brought him into the hospital) Mood: Appropriate Affect: Appropriate Thought Process & Associations: Linear Thought Content: Appropriate Hallucination Type: None Delusion Type: None Suicidal Ideation: No Suicidal Plan: No Suicidal Intention: No Homicidal Ideation: No Homicidal Plan: No Homicidal Intention: No Insight: Fair Judgment: Impulsive Assessment & Plan Problem List: (1) Substance intoxication, with delirium ICD Codes: F19.921 - Other psychoactive substance use, unspecified with intoxication with delirium (2) Benzodiazepine abuse ICD Codes: F13.10 - Sedative, hypnotic or anxiolytic abuse, uncomplicated Assessment & Plan Patient is a 61-year-old man, single, domiciled with extended family, unemployed on disability benefits, with a past psychiatric history of depression and anxiety, polysubstance use disorder, two previous psychiatric hospitalizations, no prior suicide attempts or self at his behavior, with a substance use history significant for crack cocaine, heroin, benzodiazepines abuse, with a past medical history of COPD, hepatitis C, GERD, chronic neck pain , who was today for altered mental status and admitted to the medical service for acute encephalopathy which psychiatry was consulted for evaluation for the same. Patient endorses depressive symptoms which can be continually managed in an outpatient basis as he denies any suicidal ideation and admitting to overuse of his benzodiazepines. Patient will have chronic risk for self harm due to ongoing benzodiazepine abuse as he has had history with previous unintentional overdose secondary to misuse, no noted prior suicide attempts, will continue to be at risk if he continues to be prescribed this medication with continued dependence. Patient has significant risk factors as many substance abuse issues face in terms of overdose secondary to misuse of these substances but not stemming from suicidal ideation or intent. Patient can lower risk for unintentional overdose through engagement of rehabilitation program and decrease access to this medication of abuse which treatment team can try to arrange to refer him to rehab along with coordination with his outpatient provider who has been prescribing him this medication and avoid continued prescriptions. Patient should also be re-referred to outpatient mental health clinic to address ongoing depression and anxiety which can be managed on an outpatient basis at this time and inpatient psychiatric admission not indicated at this time as patient with predominant substance abuse related issue. Patient may continue current psychotropic regimen. Consult appreciated. Ousmane Amaral MD May 30, 2017 18:20
[2017-05-30] MEDS ORDERED: traZODone HCL 50 MG TAB PO SCH (21:00)
[2017-05-30] MEDS ORDERED: QUEtiapine FUMARATE 100 MG TAB PO SCH (21:00)
--- NOTE | 2017-05-30 21:12 | MG ---
cc: MARCELLA ALEXANDER M.D. Lab No: [id number] Date: Age: 61 Sex: M Race: REFERRING: DERICK De La Paz. ROOM: G80. With photic stimulation. CT negative. Last EEG in 2011 was normal. A 61-year-old male with altered mental status, history of depression, anxiety, bipolar disorder, alcohol, substance use in the past. MEDICINES: 1. Heparin. 2. Ativan. DESCRIPTION OF THE RECORD: The patient seems to be asleep. Initially there is background artifact but overall 2 to 3 or 4 hertz background. EKG looks like a sinus bradycardia versus an atrial fibrillation difficult to tell by this one lead. There is overall theta slowing diffuse eye movement, some snoring noted. Some sharp waves seen starting at epoch 86 and this is bilateral and continues at least up until the photic stimulatory portion which shows a driving response. IMPRESSION: Abnormal EEG due to sharp wave activity bilaterally concerning for epileptic potential in this patient. Clinical correlation. Trial of antiepileptic medication may be indicated. MD SIMEON Tinsley/SILVIA /7:43 PM /8:57 PM
[2017-05-31] VITALS (7 sets, daily range): BP systolic 117–124; BP diastolic 60–74; PULSE 68–75; RESP 18–20; TEMP 98.2–98.8; O2SAT 95–97
[2017-05-31] MEDS: INSULIN ASPART SUPPLEMENTAL SCALE SQ SCH ×3 (08:00→17:00)
[2017-05-31] MEDS ORDERED: MORPHINE SULFATE 2 MG/ML INJ IV PUSH ONE (08:15)
--- NOTE | 2017-05-31 08:16 | HHI.PR ---
Subjective Remarks Follow up for AMS. The patient is awake, alert, oriented x4 this morning. He complains of chest pain that started last night, located substernally, radiating to the right side of the chest, described as 9/10 sharp pains. He states the pain was constant throughout the night but intermittent today. He denies any history of heart disease. He does not believe he's ever had a stress test. He denies any associated shortness of breath, nausea/vomiting, or diaphoresis. He has no other medical complaints at this time. Objective Vitals Vital Signs Date Time Temp Pulse Resp B/P (MAP) Pulse Ox O2 Delivery O2 Flow Rate FiO2 05/31/17 05:14 98.8 69 18 117/74 (88) 97 05/31/17 04:00 73 05/31/17 00:00 75 05/30/17 20:00 82 05/30/17 19:57 98.1 82 18 149/74 (99) 97 05/30/17 18:02 98.0 75 18 188/83 (118) 99 05/30/17 16:30 63 05/30/17 12:47 98.7 63 18 128/81 (97) 98 05/30/17 11:42 52 05/30/17 10:17 98.0 55 18 158/77 (104) 100 I/O 05/30/17 05/30/17 05/30/17 05/31/17 05/31/17 05/31/17 07:00 15:00 23:00 07:00 15:00 23:00 Intake Total 500 ml Output Total 410 ml Balance 500 ml -410 ml IV Total 500 ml Output Urine Total 410 ml Result Diagram: 05/30/17 0200 05/30/17 020 Imaging Last Impressions Head CT 05/30/17149 Signed Impressions: Service Date/Time: Tuesday, May 30, 2017 02:01 - CONCLUSION: 1. No acute intracranial abnormalities. Jun Gibson MD Chest X-Ray 05/30/17149 Signed Impressions: Service Date/Time: Tuesday, May 30, 2017 02:18 - CONCLUSION: 1. No acute findings. Fusion lower cervical spine. Jun Gibson MD Head Magnetic Resonance Angiography 05/30/17 0000 Signed Impressions: Service Date/Time: Tuesday, May 30, 2017 13:47 - CONCLUSION: 1. Anatomic variant of the [place] of [place] as above. 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 2. Otherwise, intracranial vessels are all patent without evidence of disease. Walter Rosario MD Carotid Artery Ultrasound 05/30/17 0000 Signed Impressions: Service Date/Time: Tuesday, May 30, 2017 08:27 - CONCLUSION: 1. Minimal calcified plaquing in both carotid bulbs. 2. However, no sonographic or Doppler findings of a hemodynamically significant stenosis. Antegrade flow in both vertebrals. Walter Rosario MD Brain MRI 05/30/17 0000 Signed Impressions: Service Date/Time: Tuesday, May 30, 2017 13:47 - CONCLUSION: Minimal, symmetric cortical atrophy. Otherwise negative.. Walter Rosario MD Objective Remarks GENERAL: Well-nourished, well-developed middle aged male patient in [facility]. SKIN: Warm and dry. No rash. HEENT: Normocephalic. Atraumatic. Pupils equal and round. Mucous membranes pink and moist. NECK: Supple. Trachea midline. CARDIOVASCULAR: Regular rate and rhythm. S1, S2 noted. No murmur appreciated. RESPIRATORY: No accessory muscle use. Clear to auscultation. Breath sounds equal bilaterally. GASTROINTESTINAL: Abdomen soft, non-tender, nondistended. Normoactive bowel sounds x4. MUSCULOSKELETAL: No obvious deformities. Extremities without clubbing, cyanosis , or edema. NEUROLOGICAL: AAOx4. No obvious cranial nerve deficits. Motor grossly within normal limits. 5/5 muscle strength in bilateral upper and lower extremities. Normal speech. PSYCHIATRIC: Appropriate mood and affect; insight and judgment normal. Medications and IVs Current Medications Medications (Trade) Dose Ordered Sig/Diamond Route Start Time Stop Time Status Last Admin (NS Flush) 2 ml BID IV FLUSH 05/30/17 09:00 05/31/17 08:33 (NS Flush) 2 ml UNSCH PRN IV FLUSH 05/30/17 06:15 (Aspirin) 325 mg DAILY PO 05/30/17 09:00 05/31/17 08:26 (NovoLOG SUPPLEMENTAL SCALE) 1 ACHS SQ 05/30/17 08:00 (D50w (Vial) Inj) 50 ml UNSCH PRN IV PUSH 05/30/17 06:15 (Glucagon Inj) 1 mg UNSCH PRN OTHER 05/30/17 06:15 (Heparin Inj) 5,000 units Q12HR SQ 05/30/17 09:00 05/31/17 08:27 (Norvasc) 10 mg DAILY PO 05/31/17 09:00 (SEROquel) 150 mg HS PO 05/30/17 21:00 05/30/17 21:18 (Zoloft) 50 mg DAILY PO 05/31/17 09:00 05/31/17 08:26 (Desyrel) 150 mg HS PO 05/30/17 21:00 05/30/17 21:18 (Pill Splitter) 1 ea UNSCH PRN OTHER 05/30/17 12:30 A/P Assessment and Plan 61-year-old male with medical history of arthritis, bipolar disorder, anxiety, depression, prostate cancer s/p prostatectomy, COPD, GERD, HTN, presents via [facility] with altered mental status, rightward gaze, headache, that started around 3pm on 05/29/17. Acute Encephalopathy: unclear etiology, rule out TIA/CVA. UA negative. CXR images reviewed and unremarkable. Afebrile. No leukocytosis. Ammonia wnl. -UDS positive for benzos, possible misuse of medications -Head CT images reviewed, no acute findings -Carotid U/S with minimal calcified plaquing in both carotids; however no hemodynamically significant stenosis. -Given full strength aspirin -Brain MRI/MRA unremarkable -NIHSS, neuro checks, fall precautions, monitor on telemetry -Consult neurology, appreciate recommendations -Consult psychiatry, patient advised to stop using benzos, continue current psych regimen -Consult PT, recommends [facility] -EEG abnormal, discussed with Dr. Robbins, does not recommend any antiepileptics at this time, no further work up Chest Pain, Atypical: patient complaining of substernal/right sided chest pain -ACS ruled out with negative serial cardiac enzymes x3 and EKG without acute ischemic changes -Given aspirin and IV morphine -Nuclear stress test with no evidence of ischmia; EF greater than 70% -Echocardiogram with EF 50-55%, trace to mild MR, mild TR -Chest pain likely musculoskeletal, patient stable for discharge Bipolar Disorder/Anxiety/Depression: with recent admission to inpatient psychiatry 04/10-04/16 -unclear if patient is taking medications, will restart zyprexa, seroquel, and zoloft -psychiatry consulted as above, recommended to continue current meds, avoid benzos Hypertension: chronic -continue patient's norvasc 10mg daily DVT Prophylaxis: heparin sq Discharge Planning Discharge patient to home with [facility] Condition on discharge: Improved Heart Healthy Diet as tolerated Ad Sonali activity Rx written: Follow-up with primary care physician Crystal De La Paz PA-C May 31, 2017 08:16
[2017-05-31 08:24] LABS: AUTOMATED NEUTROPHIL # 4.9 TH/MM3 (1.8-7.7); BASOPHIL # 0.1 TH/MM3 (0-0.2); BASOPHIL % 1.3 % (0.0-2.0); EOSINOPHIL # 0.2 TH/MM3 (0-0.4); EOSINOPHIL % 2.3 % (0.0-4.0); HEMATOCRIT 38.6 % (39.0-51.0); HEMOGLOBIN 13.2 GM/DL (13.0-17.0); LYMPH % 32.8 % (9.0-44.0); LYMPHOCYTE # 2.8 TH/MM3 (1.0-4.8); MEAN CELL VOLUME 93.4 FL (80.0-100.0); MEAN CORPUSCULAR HEMOGLOBIN 31.9 PG (27.0-34.0); MEAN CORPUSCULAR HGB CONC 34.2 % (32.0-36.0); MEAN PLATELET VOLUME 9.1 FL (7.0-11.0); MONOCYTE # 0.6 TH/MM3 (0-0.9); NEUT % 56.6 % (16.0-70.0); PLATELET COUNT 211 TH/MM3 (150-450); RED BLOOD COUNT 4.14 MIL/MM3 (4.50-5.90); RED CELL DISTRIBUTION WIDTH 13.9 % (11.6-17.2); WHITE BLOOD COUNT 8.6 TH/MM3 (4.0-11.0)
[2017-05-31] MEDS: ASPIRIN 325 MG TAB PO SCH (08:26)
[2017-05-31] MEDS: HEPARIN SODIUM - SQ 10,000 UNITS/ML VIAL SQ SCH (08:27)
[2017-05-31 08:31] LABS: BICARBONATE 25.5 MEQ/L (21.0-32.0); CALCIUM 8.6 MG/DL (8.5-10.1); CREATININE 0.89 MG/DL (0.60-1.30)
[2017-05-31] MEDS: SODIUM CHLORIDE 0.9% FLUSH 10 ML FLUSH IV FLUSH SCH (08:33)
[2017-05-31 08:34] LABS: CHOLESTEROL/ HDL RATIO 3.3 RATIO; HDL CHOLESTEROL 37.8 MG/DL (40.0-60.0)
[2017-05-31] MEDS ORDERED: SERTRALINE HCL 50 MG TAB PO SCH (09:00)
[2017-05-31] MEDS ORDERED: KETOROLAC TROMETHAMINE 30 MG/ML (IVP) VIAL IV PUSH ONE (11:45)
--- NOTE | 2017-05-31 13:01 | ECHRPT ---
Indication: cva/tia CONCLUSIONS Normal left ventricular size. The left ventricular systolic function is low normal with an estimated ejection fraction in the rang e of 50- 55%. [id number] mitral valve regurgitation. No aortic valve regurgitation. No aortic valve stenosis. There is mild tricuspid valve regurgitation. The estimated pulmonary arterial pressure is 39.2 mmHg. BP: / HR: Rhythm: MEASUREMENTS (Male / Female) Normal Values Technical Quality:Good 2D ECHO LV Diastolic Diameter PLAX 3.6 cm 4.2 - 5.9 / 3.9 - 5.3 cm LV Systolic Diameter PLAX 2.8 cm IVS Diastolic Thickness 1.4 cm 0.6 - 1.0 / 0.6 - 0.9 cm LVPW Diastolic Thickness 1.0 cm 0.6 - 1.0 / 0.6 - 0.9 cm LV Relative Wall Thickness 0.7 RV Internal Dim ED PLAX 2.6 cm M-MODE Aortic Root Diameter MM 3.5 cm LA Systolic Diameter MM 3.0 cm LA Ao Ratio MM 0.9 AV Cusp Separation MM 2.2 cm DOPPLER Mitral E Point Velocity 58.7 cm/s Mitral A Point Velocity 62.7 cm/s Mitral E to A Ratio 0.9 LV E' Lateral Velocity 10.1 cm/s Mitral E to LV E' Lateral Ratio 5.8 LV E' Septal Velocity 7.6 cm/s Mitral E to LV E' Septal Ratio 7.7 TR Peak Velocity 270.0 cm/s TR Peak Gradient 29.2 mmHg Right Atrial Pressure 10.0 mmHg Pulmonary Artery Systolic Pressu 39.2 mmHg Right Ventricular Systolic Press 39.2 mmHg FINDINGS LEFT VENTRICLE Normal left ventricular size. The left ventricular systolic function is low normal with an estimated ejection fraction in the rang e of 50- 55%. RIGHT VENTRICLE Normal right ventricular size and systolic function. LEFT ATRIUM The left atrial size is normal. RIGHT ATRIUM The right atrial size is normal. ATRIAL SEPTUM Normal atrial septal thickness without atrial level shunting by limited color doppler interrogation. AORTA The aortic root and proximal ascending aorta are normal in size on limited imaging. MITRAL VALVE Structurally normal mitral valve. [id number] mitral valve regurgitation. AORTIC VALVE Trileaflet aortic valve. No aortic valve regurgitation. No aortic valve stenosis. TRICUSPID VALVE Structurally normal tricuspid valve. There is mild tricuspid valve regurgitation. The estimated pulmonary arterial pressure is 39.2 mmHg. PULMONARY VALVE No pulmonary valve regurgitation or stenosis. VESSELS The inferior vena cava is normal in size. PERICARDIUM No pericardial effusion. Judah Pulido MD (Electronically Signed) Final Date:31 May 2017 13:00
[2017-05-31] MEDS ORDERED: REGADENOSON INJ 0.4 MG/5 ML SYR ONE (14:21)
--- NOTE | 2017-05-31 16:27 | RADRPT ---
EXAM DATE/TIME: 05/31/2017 14:30 [facility] COMPARISON: No previous studies available for comparison. INDICATIONS : Chest pain. DOSE: 25.3 mCi Tc99m Myoview at stress. 8.4 mCi Tc99m Myoview at rest. 0.4 mg Lexiscan STRESS SYMPTOMS: Shortness of breath, hot. EJECTION FRACTION: > 70% MEDICAL HISTORY : Chronic obstructive pulmonary disease. Hypertension. Gastroesophageal reflux disease. SURGICAL HISTORY : Cholecystectomy. Prostatectomy. ENCOUNTER: Initial ACUITY: 1 day PAIN SCALE: 3/10 LOCATION: Bilateral chest TECHNIQUE: The patient underwent pharmacologic stress with infusion of prescribed dose. Continuous ECG tracing was monitored during stress. Gated SPECT imaging was performed after stress and conventional SPECT i maging was performed at rest. The examination was performed on a SPECT/CT scanner, both attenuation and non-corrected datasets were reviewed. FINDINGS: DISTRIBUTION: The maximum perfused segment at stress is in the anterior wall. There is some attenuation artifact i n the inferior wall on both the stress and rest images due to diaphragmatic attenuation. PERFUSION STUDY: The pattern of perfusion at stress is within normal limits, with regional variations perfusion within 30%. The pattern perfusion at stress and rest is unchanged without evidence of redistribution.. GATED STUDY: There is intact wall motion and thickening without hypokinetic or dyskinetic segments. CONCLUSION: 1. No evidence of stress-induced ischemia. 2. Intact wall motion with greater than 70% ejection fraction. RISK CATEGORY: Low (<1% Annual Mortality Rate) Tate Doyle MD on May 31, 2017 at 16:22 Board Certified Radiologist. This report was verified electronically.
[2017-05-31] MEDS ORDERED: AMLO10 PO (17:04)
[2017-05-31] MEDS ORDERED: TRAZ1TAB14 PO (17:04)
[2017-05-31] MEDS ORDERED: QUET1TAB8 PO (17:04)
[2017-05-31] MEDS ORDERED: ZOLO50TA PO (17:04)
--- NOTE | 2017-05-31 17:05 | HHI.DCPOC ---
Discharge Care Plan Diagnosis: (1) Altered mental status (2) Benzodiazepine abuse (3) Substance intoxication, with delirium Goals to Promote Your Health * To prevent worsening of your condition and complications * To maintain your health at the optimal level Directions to Meet Your Goals Take your medications as prescribed Follow your dietary instruction Follow activity as directed Keep your appointments as scheduled Take your immunizations and boosters as scheduled If your symptoms worsen call your PCP, if no PCP go to Urgent Care Center or Emergency Room Smoking is Dangerous to Your Health. Avoid second hand smoke Call the 24-hour hour crisis hotline for domestic abuse at Crystal De La Paz PA-C May 31, 2017 17:05
--- NOTE | 2017-05-31 17:11 | HHI.FF ---
Face to Face Verification Diagnosis: (1) HTN (hypertension) (2) CVA (cerebral vascular accident) (3) COPD (chronic obstructive pulmonary disease) (4) Back pain (5) Bipolar I disorder with depression, severe (6) Adjustment disorder with mixed anxiety and depressed mood Physical Therapy Order: Evaluate and Treat, Improve ambulation, Strength and gait training Home Health Nursing Order: Medical education Signs/symptoms of disease process Nursing assessment with vital signs Professional Organizer Order: To Evaluate: Living conditions/environment, Support services Order: To Provide: Long range planning, Community services I have seen patient Yahir Villeda on 05/31/17. My clinical findings support the need for the requested home health care services because: Ltd mobility - disease progression Deconditioned w/ increased weakness Med compliance is questionable Limited ability to care for self Need for psychosocial assistance I certify that my clinical findings support that this patient is homebound because: Impaired cognitive ability/safety Unsteady gait/balance Unsafe to leave home unassisted Unable to use public transportation Crystal De La Paz PA-C May 31, 2017 5:11 pm
--- NOTE | 2017-06-01 00:13 | EKG ---
Date Performed: 05/30/2017 Time Performed: 12:41:50 PTAGE: 61 years EKG: SINUS BRADYCARDIA WITH SHORT OR INTERVAL BORDERLINE ECG Compared to prior tracing, rate min imally decreased, otherwise no change DOCTOR: Compa Samayoa Interpretating Date/Time 06/01/2017 00:12:53
== END 2017-05-31 19:10 | disposition home or self-care (01) ==
LOC: NEPE 01:43 → NEDA 06:08 → NEPGCP 08:01
PROVIDERS: ADMIT Hospitalist; ATTEND Hospitalist
DX: G93.40 Encephalopathy, unspecified (principal); R07.89 Other chest pain; R00.1 Bradycardia, unspecified; R94.01 Abnormal electroencephalogram [EEG]; T42.4X1A Poisoning by benzodiazepines, accidental (unintentional), initial encounter; R51 Headache; F19.921 Other psychoactive substance use, unspecified with intoxication with delirium; I10 Essential (primary) hypertension; J44.9 Chronic obstructive pulmonary disease, unspecified; K21.9 Gastro-esophageal reflux disease without esophagitis; F31.9 Bipolar disorder, unspecified; F41.9 Anxiety disorder, unspecified; B19.20 Unspecified viral hepatitis C without hepatic coma; G47.30 Sleep apnea, unspecified; M54.9 Dorsalgia, unspecified; G89.29 Other chronic pain; M19.90 Unspecified osteoarthritis, unspecified site; F17.200 Nicotine dependence, unspecified, uncomplicated; Z85.46 Personal history of malignant neoplasm of prostate; Z79.899 Other long term (current) drug therapy; Z98.1 Arthrodesis status
CPT/HCPCS: 70450; 70544; 70551; 71045; 78452; 80048; 80053; 80061; 80307; 81001; 82140; 82948; 83036; 84484; 85025; 85610; 85730; 93005; 93017; 93306; 93880; 95819; 96372; 96374; 96375; 97110; 97116; 97161; 99285; A9502; G0378; G8987; G8988; J1630; J1644; J1885; J2060; J2270; J2785; J7050

== ENCOUNTER 2017-10-14 12:43 | Inpatient (IN) ==
[2017-10-19] MEDS ORDERED: Naloxone Inj 0.4 MG/ML Vial IV.PUSH PRN (00:01)
[2017-10-19 08:25] LABS: Baso % (Auto) 0.6 % (0.0-2.0); Eos # (Auto) 0.2 th/mm3 (0.0-0.4); Eos % (Auto) 3.6 % (0.0-4.0); Hematocrit 34.5 % (39.0-51.0); Hemoglobin 11.7 gm/dL (13.0-17.0); Lymph % (Auto) 34.6 % (9.0-44.0); Mean Corpuscular HGB Conc 33.8 % (32.0-36.0); Mean Corpuscular Hemoglobin 32.3 pg (27.0-34.0); Mean Corpuscular Volume 95.5 fL (80.0-100.0); Mean Platelet Volume 10.3 fL (7.0-11.0); Mono # (Auto) 0.6 th/mm3 (0.0-0.9); Mono % (Auto) 10.3 % (0.0-8.0); Neut % (Auto) 50.9 % (16.0-70.0); Platelet Count 160 th/mm3 (150-450); Red Blood Count 3.61 mil/mm3 (4.50-5.90); White Blood Count 5.9 th/mm3 (4.0-11.0)
[2017-10-19 08:51] LABS: Albumin 3.2 g/dL (3.4-5.0); Anion Gap 12 meq/L (5-15); Aspartate Aminotransferase 21 U/L (15-37); Blood Urea Nitrogen 13 mg/dL (7-18); Calcium 8.4 mg/dL (8.5-10.1); Carbon Dioxide 21.4 meq/L (21.0-32.0); Chloride 108 meq/L (98-107); Glomerular Filtration Rate 63 mL/min (>89); Glucose,Random 87 mg/dL (74-106); Potassium 3.7 meq/L (3.5-5.1); Sodium 141 meq/L (136-145)
[2017-10-19 08:54] LABS: Alanine Aminotransferase 42 U/L (12-78); Alkaline Phosphatase 94 U/L (45-117); Total Protein 6.8 g/dL (6.4-8.2)
[2017-10-19] MEDS: Lactobacillus Acidophilus/L. Spores Tablet PO SCH ×3 (09:11→18:23)
[2017-10-19] MEDS: Topiramate 100 MG Tablet PO SCH ×2 (09:11→21:14)
[2017-10-19] MEDS: Divalproex 250 MG ER Tablet PO SCH ×2 (09:11→21:13)
[2017-10-19] MEDS: amLODIPine 10 MG Tablet PO SCH (09:12)
--- NOTE | 2017-10-19 17:51 | P.PNIM ---
Subjective Interval history: Deferred entry, the patient was seen earlier at 1:30 PM. The patient states that he still having diarrhea. Discussed the case with RN who states that the patient had not had a bowel movement however, he went to assess the patient and the patient has had 2 episodes of reported diarrhea. Patient states nausea is much improved. Physical Exam Vital signs: Vital Signs 10/19/17 00:00 10/19/17 04:30 10/19/17 08:00 Temperature 98 F 98 F 98.4 F Pulse Rate 62 74 71 Respiratory Rate 19 19 18 Blood Pressure 125/69 130/60 131/65 Pulse Oximetry 100 100 99 10/19/17 09:16 10/19/17 12:00 10/19/17 13:32 Temperature 98.2 F Pulse Rate 64 Respiratory Rate 8 L 18 19 Blood Pressure 138/65 Pulse Oximetry 99 Intake & Output 10/18/17 10/19/17 10/19/17 18:59 06:59 18:59 Intake Total 875 / 875 Balance 875 / 875 Weight 60 kg 60 kg Intake: Oral 875 / 875 Other: # Voids 3 # Bowel Movements 0 Narrative: AAOX3 NAD Clear lungs BL S1S2 RRR, no MRG abdomen soft, nt, nd no edema in lower extremities. Results - Labs CBC & Chem 7: 10/19/17 06:17 10/19/17 06:17 Labs: Laboratory Results - last 24 hr 10/15/17 10/15/17 10/15/17 03:37 18:09 18:09 WBC RBC Hgb Hct MCV MCH MCHC RDW Plt Count MPV Neut % (Auto) Lymph % (Auto) Cascade % (Auto) Eos % (Auto) Baso % (Auto) Neut # (Auto) Lymph # (Auto) Cascade # (Auto) Eos # (Auto) Baso # (Auto) CBC Comment WBC Differential Differential Comment ESR Sodium Potassium Chloride Carbon Dioxide Anion Gap BUN Creatinine Estimated GFR Random Glucose Calcium Phosphorus Magnesium Total Bilirubin 0.1 L Direct Bilirubin 0.1 Indirect Bilirubin 0.0 AST 30 ALT 54 Alkaline Phosphatase 115 C-Reactive Protein 0.31 H Cancelled Total Protein 5.9 L D Albumin 2.7 L Vit D 1,25-Dihydroxy 27 Vancomycin Trough 10/15/17 10/16/17 10/17/17 21:12 06:37 08:17 WBC RBC Hgb Hct MCV MCH MCHC RDW Plt Count MPV Neut % (Auto) Lymph % (Auto) Cascade % (Auto) Eos % (Auto) Baso % (Auto) Neut # (Auto) Lymph # (Auto) Cascade # (Auto) Eos # (Auto) Baso # (Auto) CBC Comment WBC Differential Differential Comment ESR 16 Sodium 139 138 Potassium 5.2 H D 3.8 D Chloride 109 H 107 Carbon Dioxide 20.0 L 20.0 L Anion Gap 10 11 BUN 18 13 Creatinine 1.22 1.07 Estimated GFR 60 L 70 L Random Glucose 72 L 81 Calcium 8.0 L 8.5 Phosphorus 2.8 Magnesium 1.8 Total Bilirubin 0.3 0.3 Direct Bilirubin Indirect Bilirubin AST 42 H 29 ALT 51 49 Alkaline Phosphatase 97 93 C-Reactive Protein Total Protein 6.2 L 6.5 Albumin 2.7 L 3.0 L Vit D 1,25-Dihydroxy Vancomycin Trough 10/17/17 10/17/17 10/19/17 08:17 22:00 06:17 WBC 6.0 5.9 RBC 3.54 L 3.61 L Hgb 11.6 L 11.7 L Hct 33.8 L 34.5 L MCV 95.4 95.5 MCH 32.7 32.3 MCHC 34.3 33.8 RDW 14.4 15.0 Plt Count 142 L 160 MPV 10.4 10.3 Neut % (Auto) 49.2 50.9 Lymph % (Auto) 37.4 34.6 Cascade % (Auto) 9.4 H 10.3 H Eos % (Auto) 3.1 3.6 Baso % (Auto) 0.9 0.6 Neut # (Auto) 3.0 3.0 Lymph # (Auto) 2.2 2.0 Cascade # (Auto) 0.6 0.6 Eos # (Auto) 0.2 0.2 Baso # (Auto) 0.1 0.0 CBC Comment DIFF FINAL WBC Differential . Differential Comment Auto diff final ESR Sodium Potassium Chloride Carbon Dioxide Anion Gap BUN Creatinine Estimated GFR Random Glucose Calcium Phosphorus Magnesium Total Bilirubin Direct Bilirubin Indirect Bilirubin AST ALT Alkaline Phosphatase C-Reactive Protein Total Protein Albumin Vit D 1,25-Dihydroxy Vancomycin Trough 17.3 H 10/19/17 06:17 WBC RBC Hgb Hct MCV MCH MCHC RDW Plt Count MPV Neut % (Auto) Lymph % (Auto) Cascade % (Auto) Eos % (Auto) Baso % (Auto) Neut # (Auto) Lymph # (Auto) Cascade # (Auto) Eos # (Auto) Baso # (Auto) CBC Comment WBC Differential Differential Comment ESR Sodium 141 Potassium 3.7 Chloride 108 H Carbon Dioxide 21.4 Anion Gap 12 BUN 13 Creatinine 1.18 Estimated GFR 63 L Random Glucose 87 Calcium 8.4 L Phosphorus Magnesium Total Bilirubin 0.3 Direct Bilirubin Indirect Bilirubin AST 21 ALT 42 Alkaline Phosphatase 94 C-Reactive Protein Total Protein 6.8 Albumin 3.2 L Vit D 1,25-Dihydroxy Vancomycin Trough Assessment and Plan - Plan Gram Positive sepsis- source ? does have some UE superficial abrasions but not impressive UTI on UA - elevated lactic acid - on Zosyn + Vancomycin - ID consult - Will get CT of abdomen - ff cultures 3/4 + gram + organism, repeat blood cultures in1-2 days to ensure clearance - ff urine C and S -IV antibiotics discontinued as per ID recommendations. Blood cultures negative 84 days. Continue to monitor of antibiotics for signs of infection. - 10/19 patient states that he still having diarrhea. Stool sample has not been obtained. Discussed with RN. Acute kidney injury secondary to dehydration-/poor po- denies any dysphagia - per patient- poor po intake for last few months - continue IVF 100 cc/hr - ff BMP - will get a dietitian consult- patient states he has been taking only ensure for last months -AKA resolved after IV fluids administration. Poor PO intake History of GERD Abdominal pain/discomfort on exam- history of prostate cancer - get CT of abdomen on med list- takes Tylenol 3 with codeine- ff LFTs - consider GI consult in am- review old records 03/2017- had EGD done- shows gastritis, esophagitis - PPI Frequent fall- likely from weakness - head CT negative - PT/OT consult History of Prostatic cancer UTI -Urine culture negative UTI ruled out. History fo depression- on multiple meds - ask for psychiatry consult for recommendations and evaluation Elevated AST AST slightly elevated at 47. Concern for overuse of Acetaminophen. On admission , Acetaminophen level slightly elevated within normal therapeutic range, Acetaminophen level now trending down. Continue to monitor LFT's. Discharge Planning: Discharge pending C. difficile toxin PCR on improvement of diarrhea. Anticipate discharge in a.m.
[2017-10-19] MEDS: Enoxaparin Inj 30 MG/0.3 ML Syringe SQ SCH (18:24)
[2017-10-19] MEDS ORDERED: Zolpidem Tartrate 5 MG Tablet PO PRN (21:00)
[2017-10-20] MEDS: Topiramate 100 MG Tablet PO SCH (09:52)
[2017-10-20] MEDS: Divalproex 250 MG ER Tablet PO SCH (09:53)
[2017-10-20] MEDS: Lactobacillus Acidophilus/L. Spores Tablet PO SCH ×3 (09:53→17:21)
[2017-10-20] MEDS: amLODIPine 10 MG Tablet PO SCH (09:53)
--- NOTE | 2017-10-20 14:54 | P.DCO ---
- Physical Therapy Order: Improve ambulation, Strength and gait training - Home Health Nursing Order: Medication education-adverse effect, Nursing assessment with vital signs - Certification I have seen patient Yahir Villeda on 10/20/17. My clinical findings support the need for the requested home health care services because: Need for psychosocial assistance, High risk of falls I certify that my clinical findings support that this patient is homebound because: Unsteady gait/balance, Unsafe to leave home unassisted, Need for psychosocial assistance, Unable to use public transportation
--- NOTE | 2017-10-20 15:06 | P.DS ---
Date of admission: 10/14/17 15:45 Primary care physician: UNKNOWN Brief History from admission: Mr. Villeda is a 61 year old male. She came into the emergency department today with malaise. He is found to be hypotensive. He has acute kidney injury. Lactic acidosis is present and metabolic acidosis is present. Sepsis is suspected but patient does not meet full septic criteria. He does have a urinary tract infection which could be contributory to sepsis or acute kidney injury. Lactic acidosis is present. With IV hydration in the ER he has had resolution of his hypotension. His acidosis is likely metabolic. 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 He says he has been gradually losing weight through time and he is expected to from this. His malabsorption issues may be contributory to his present status also. Primary complaint when I saw him is pain. He says he takes Tylenol 3's at baseline but has more pain than that. His pain is primarily back pain which would correlate with UTI or acute kidney injury. No other complaints tonight. DS: Diagnosis - Discharge Diagnosis (1) Gram-positive bacteremia Status: Resolved (2) BEBETO (acute kidney injury) Status: Resolved (3) At risk for dehydration due to poor fluid intake Status: Resolved (4) Frequent falls Status: Resolved (5) H/O prostate cancer Status: Resolved (6) Elevated AST (SGOT) Status: Resolved (7) CKD (chronic kidney disease) stage 2, GFR 60-89 ml/min Status: Chronic DS: Medications - Discharge Medications Prescriptions: diphenoxylate-atropine 1 tab PO Q6HR PRN #30 tab PRN Reason: Diarrhea esomeprazole magnesium 40 mg PO DAILY #30 tab promethazine 25 mg PO Q8H PRN #30 tab PRN Reason: NAUSEA OR VOMITING DS: Summary Hospital Course: This is a 61-year-old male who presented to [facility] emergency department complaining with malaise and found to be hypotensive. The patient also was found to have lactic acidosis as well as metabolic acidosis present with acute kidney injury. Sepsis was suspected but the patient did not meet criteria at the time. The patient had a positive urinalysis which turned out to be culture negative so urinary tract infection was ruled out. Hypotension was treated with IV fluids in the emergency department which helped resolve the issue. Acidosis likely metabolic possibly related to acute kidney injury and lactic acidosis secondary to dehydration. 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 The patient's hospital stay he was found to have 4 blood cultures positive for staph coagulase-negative. ID was consulted and the patient was started empirically on IV vancomycin and IV Zosyn. CT abdomen and pelvis was obtained and did not show any major acute issues. Repeat blood cultures were negative 5. ID recommended discontinuation of antibiotics if blood cultures negative 3 days so antibiotics were discontinued. The patient was monitored off antibiotics without any signs of active infection. The patient however was complaining of diarrhea and a C. difficile toxin PCR which was ordered which was negative. Patient also was found to have acute kidney injury on chronic kidney disease stage II likely secondary to dehydration due to poor oral intake. The patient was treated with IV fluids, BMP monitor. Dietitian was consulted and recommended in light of 3 times daily with meals. The patient also is complaining of some abdominal pain and discomfort on exam, he has history of prostate cancer, GERD. CT of the abdomen and pelvis showed diverticulosis without diverticulitis, ruled out renal calculi or hydronephrosis and showed some signs consistent with cholecystectomy. Physical therapy and Occupational Therapy were consulted for complaints of frequent falls. Head CT negative. UA was positive on admission however cultures were negative. The patient was also on several medications for depression. There is documentation that psychiatry should be consulted, however I could not find consultation regarding this. The patient was started on some on his chronic psychiatric medications and advised to follow-up with psychiatry as soon as possible. Patient also was started on Lactobacillus acidophilus and question to help with the diarrhea. - Time Spent with Patient Total time spent providing and/or coordinating discharge services: Greater than 30 minutes Exam Vital signs: Vital Signs 10/19/17 16:00 10/19/17 18:24 10/19/17 20:42 Temperature 98.5 F Pulse Rate 60 Respiratory Rate 18 19 19 Blood Pressure 113/55 L Pulse Oximetry 99 10/19/17 22:44 10/20/17 00:40 10/20/17 05:40 Temperature 98 F 97.7 F 98 F Pulse Rate 64 67 68 Respiratory Rate 17 16 16 Blood Pressure 125/65 118/66 120/60 Pulse Oximetry 98 98 99 10/20/17 06:27 10/20/17 08:00 10/20/17 08:56 Temperature 97.9 F Pulse Rate 55 L 52 L 62 Respiratory Rate 20 Blood Pressure 129/60 Pulse Oximetry 99 10/20/17 12:40 Temperature 99.2 F Pulse Rate 75 Respiratory Rate 20 Blood Pressure 167/74 H Pulse Oximetry 99 Intake & Output 10/19/17 10/20/17 10/20/17 18:59 06:59 18:59 Intake Total 1949 Balance 1949 Weight 60 kg Intake: Oral 1949 Other: # Voids 3 Date of Last Bowel Movement 10/20/17 # Bowel Movements 0 1 Narrative: AAOX3 NAD Clear lungs BL S1S2 RRR, no MRG abdomen soft, nt, nd no edema in lower extremities. Results Procedures completed during hospitalization: none Completed studies during hospitalization: 1. Head CT did not show any acute intracranial abnormality. Stable chronic findings include mild generalized atrophy and mild periventricular white matter changes. 2. Chest x-ray without any acute cardiopulmonary disease. 3. CT abdomen and pelvis with scattered diverticulosis without diverticulitis. No renal calculi or hydronephrosis. Cholecystectomy. Labs on day of discharge: Labs from last 24 hours 10/20/17 05:40 Stl C.difficile Tox PCR Negative St C. diff Tox Epid 027 Negative Discharge Plan - Discharge Disposition Patient Disposition: /Home Health Service - Discharge Condition Condition: Stable - Discharge Order Discharge Orders: Discharge Order (Routine); Ordered 10/20/17 Ordered By: Billy Schultz - Discharge Details Anticipated Discharge Date: 10/20/17 Discharge Comment: Ok to Dc once arrangements made - Physicians Team Primary Care Provider: UNKNOWN, Attending Provider: Billy Schultz Other Providers: Romel Rojas MD ; Marie Liu MD - Rxs /Orders / Referrals /Forms Prescriptions: New acidophilus-sporogenes [Acidophilus Ex Str (L. sporog)] 35 million- 25 million cell Tablet 1 tab PO TID Qty: 90 RF: 0 amlodipine [Norvasc] 10 mg Tablet 10 mg PO DAILY Qty: 30 RF: 0 diphenoxylate-atropine 2.5-0.025 mg Tablet 1 tab PO Q6HR PRN (Reason: Diarrhea) Qty: 30 RF: 0 Continue bupropion HCl [Wellbutrin SR] 150 mg Tablet Extended Release 12 Hr 150 mg PO Q8H cariprazine [Vraylar] 1.5 mg Capsule 1.5 mg PO DAILY divalproex [Depakote ER] 250 mg Tablet Extended Release 24 Hr 250 mg PO BID escitalopram oxalate [Lexapro] 20 mg Tablet 20 mg PO DAILY esomeprazole magnesium 40 mg Capsule,Delayed Release(Dr/Ec) 40 mg PO DAILY Qty: 30 promethazine 25 mg Tablet 25 mg PO Q8H PRN (Reason: NAUSEA OR VOMITING) Qty: 30 sertraline [Zoloft] 50 mg Tablet 50 mg PO DAILY topiramate [Topamax] 100 mg Tablet 100 mg PO BID Discontinued acetaminophen-codeine 300-30 mg Tablet 1 tab PO Q12H PRN (Reason: PAIN ) clonazepam [Klonopin] 0.5 mg Tablet 0.5 mg PO HS quetiapine 100 mg Tablet 150 mg PO HS tramadol [Ultram] 50 mg Tablet 100 mg PO Q8H PRN (Reason: Pain) trazodone 150 mg Tablet 150 mg PO HS Referrals: Psychiatrist [Outside] - See Instructions ( Please call the physician's office to book the appointment to be seen within [1 week].) UNKNOWN, [Primary Care Provider] - See Instructions (please call [employer] to make appt. [phone] )
[2017-10-20] MEDS: Enoxaparin Inj 30 MG/0.3 ML Syringe SQ SCH (16:22)
[2017-10-20] MEDS ORDERED: Diphenoxylate/Atropine 2.5/0.025 MG Tablet PO SCH (18:00)
== END 2017-10-20 18:09 | disposition home health service (06) ==
LOC: N05 15:45
PROVIDERS: ADMIT Hospitalist; ATTEND Hospitalist